=== PATIENT | male | born 1955 | race Caucasian/White ===

== ENCOUNTER 2016-07-10 08:23 | Day surgery (SDC) | payer OTHER ==
[~2016-07-10] VITALS: Ht 182.9 cm; Wt 102.3 kg
[~2016-07-10 08:23] MED LIST: CIPR500T4 PO; CLIN1CAP5 PO
[2016-07-10 08:37] VITALS: BP 155/98; PULSE 65; RESP 20; TEMP 98.1; O2SAT 97
[2016-07-10 09:15] LABS: AUTOMATED NEUTROPHIL # 4.1 TH/MM3 (1.8-7.7); BASOPHIL # 0.1 TH/MM3 (0-0.2); BASOPHIL % 0.8 % (0.0-2.0); EOSINOPHIL # 0.5 TH/MM3 (0-0.4); EOSINOPHIL % 6.1 % (0.0-4.0); HEMO FLAGS DIFF FINAL; LYMPH % 32.3 % (9.0-44.0); LYMPHOCYTE # 2.5 TH/MM3 (1.0-4.8); MEAN CELL VOLUME 94.7 FL (80.0-100.0); MEAN CORPUSCULAR HEMOGLOBIN 32.4 PG (27.0-34.0); MEAN CORPUSCULAR HGB CONC 34.2 % (32.0-36.0); MONO % 7.7 % (0.0-8.0); NEUT % 53.1 % (16.0-70.0); PLATELET COUNT 202 TH/MM3 (150-450); RED BLOOD COUNT 5.39 MIL/MM3 (4.50-5.90); RED CELL DISTRIBUTION WIDTH 14.1 % (11.6-17.2); WHITE BLOOD COUNT 7.7 TH/MM3 (4.0-11.0)
[2016-07-10] MEDS ORDERED: MIDAZOLAM HCL 5 MG/5 ML VIAL ONE (10:16)
[2016-07-10] MEDS ORDERED: fentaNYL CITRATE 250 MCG/5 ML AMP ONE (10:17)
[2016-07-10 10:28] LABS: APTT (PATIENT) 27.8 SEC (24.3-30.1); PROTHROMBIN TIME - PATIENT 11.6 SEC (9.8-11.6)
--- NOTE | 2016-07-10 11:16 | PD.RAD ---
Post Procedure Progress Note Pre Procedure Diagnosis: (1) history of DVT left lower extremity Post Procedure Diagnosis: (1) history of DVT left lower extremity Procedure Date: Jul 10, 2016 Supervising Radiologist: Kai Cook JR Proceduralist/Assist: Maida Joyce, RT(R), Mauri Saez RT(R)() Anesthesia: Conscious Sedation Plan of Activity Patient to Unit: ROPU Patient Condition: Good See PACS Report for procedural detail/treatment Vascular-Venous Procedure Procedure 1 Procedure(s): Foreign Body Retrieval, Retrievable IVC Filter Access Access Site(s): Right Jugular Vein Findings: IVC venogram shows no thrombus in filter. Filter removed without difficulty. Jr. Joey,Kai Corbett MD Jul 10, 2016 11:16
[2016-07-10 11:20] VITALS: BP 153/93; PULSE 64; RESP 18; TEMP 97.3; O2SAT 94
[2016-07-10 11:35] VITALS: BP 153/93; PULSE 64; RESP 18; O2SAT 94
[2016-07-10 11:56] VITALS: BP 153/93; PULSE 64; RESP 18; O2SAT 94
--- NOTE | 2016-07-10 12:03 | RADRPT ---
EXAM DATE/TIME: 07/10/2016 10:29 [facility] COMPARISON: No previous studies available for comparison. INDICATIONS : Patient with a history of DVT. No remaining DVT. IVC filter retrieval requested. MEDICAL HISTORY : HTN DVT Colon Cancer SURGICAL HISTORY : Bowel Resection Vasectomy ENCOUNTER: Subsequent ACUITY: 4 - 6 days PAIN SCORE: 3/10 Bilateral neck FLUORO TIME: 4.5 minutes IMAGE SERIES: 2 ACCESS SITE: Right Internal jugular vein SEDATION TIME: 20 minutes CONTRAST: 1.) 20 cc Omnipaque (iohexol) 350 MEDICATION(S): 1.) 3 mg midazolam (Versed) IV 2.) 150 mcg fentanyl (Sublimaze) IV PROCEDURE : 1. Ultrasound-guided venipuncture. 2. Inferior venacavogram with IVC filter retrieval. 4. Conscious sedation with continuous EKG and oximetry monitoring. The risks, benefits and alternatives to the procedure were explained and verbal and written consent w as obtained. The site was prepped in sterile fashion. Full sterile technique was used, including ca p, mask, sterile gloves and gown and a large sterile sheet. Hand hygiene and 2% chlorhexidine and/or betadine/alcohol prep was utilized per protocol for cutaneous antisepsis. The skin and subcutaneous tissues were infiltrated with local anesthetic solution. With ultrasound and fluoroscopic guidance the right internal jugular vein was punctured and a vascula r sheath was placed. Inferior venacavogram was performed. This shows no thrombus within the IVC. The retrieval sheath was passed down to the IVC filter and the snare utilized to engage the hook. Gentle retraction with advancement of the sheath retrieved the filter into the sheath without difficulty. A followup venogram was performed and revealed no extravasation of contrast.. Conscious sedation was performed with the prescribed dosages and duration as above in the presence of an independent trained radiology nurse to assist in the monitoring of the patient. EKG and oximetry remained stable throughout the procedure. The patient tolerated the procedure well and there were n o complications. The patient was sent to post anesthesia recovery in stable condition. CONCLUSION: Uncomplicated inferior vena cava filter retrieval as above. Kai Cook Jr., MD on July 10, 2016 at 11:54 Board Certified Radiologist. This report was verified electronically.
[2016-07-10 12:05] VITALS: BP_SYST 145; BP_SYST 153; BP_DIAS 93; BP_DIAS 95; PULSE 64; PULSE 68; RESP 18; O2SAT 94
[2016-07-10 12:25] VITALS: BP 151/78; PULSE 77; RESP 16; O2SAT 94
== END 2016-07-10 12:55 | disposition home or self-care (01) ==
LOC: HROP 08:23 → HRIP 08:27 → HROP 12:55
PROVIDERS: ATTEND Radiology Body Imaging
DX: Z45.2 Encounter for adjustment and management of vascular access device (principal); I10 Essential (primary) hypertension; F32.9 Major depressive disorder, single episode, unspecified; F31.9 Bipolar disorder, unspecified; N40.0 Benign prostatic hyperplasia without lower urinary tract symptoms; Z85.038 Personal history of other malignant neoplasm of large intestine; Z86.718 Personal history of other venous thrombosis and embolism; Z90.49 Acquired absence of other specified parts of digestive tract
CPT/HCPCS: 37193; 85025; 85610; 85730; 99152; 99153; C1769; C1773; C1887; J2250; J3010

== ENCOUNTER 2016-12-26 09:32 | Inpatient (IN) | payer OTHER, MEDICARE ==
[2016-12-26] VITALS (7 sets, daily range): BP systolic 123–155; BP diastolic 67–83; PULSE 67–95; RESP 14–18; TEMP 98–99.1; O2SAT 95–99
[~2016-12-26] VITALS: Ht 182.9 cm; Wt 102.1 kg
[2016-12-26] MEDS ORDERED: APIX5TAB PO (10:14)
--- NOTE | 2016-12-26 10:45 | PD ---
HPI Chief Complaint: Psychiatric Symptoms Time Seen by Provider: 10:22 Travel History International Travel<30 days: No Contact w/Intl Traveler<30days: No Traveled to known affect area: No History of Present Illness HPI 61-year-old male was Rojas acted and brought in for evaluation. Patient was found walking in the traffic disoriented this morning. Patient has history of bipolar disorder and was on [place]. Patient states that he has not taken his lithium recently. Patient denies any headache. Patient denies any chest pain or shortness of breath. Patient denies abdominal pain. Patient states that he has history of chronic swelling of the right leg. Patient has history of DVT. Patient was on Coumadin but that was stopped. Patient had IVC filter placement and subsequently removed. Patient was given prescription for Eliquis however I do not know whether patient still taking it or not. Patient also has history of hypertension. Patient has history of colorectal cancer status post colectomy. PFSH Past Medical History Hx Anticoagulant Therapy: Yes (ELIQUIS) Bipolar Disorder: Yes Anxiety: Yes Depression: Yes Cancer: Yes (COLON CANCER 2003 HAD CHEMO FOR 1 YEAR) Cardiovascular Problems: Yes Chemotherapy: Yes (PAST IN 2003 FOR COLON CA) Diabetes: No Diminished Hearing: No Deep Vein Thrombosis: Yes Gastrointestinal Disorders: Yes Hepatitis: No Hiatal Hernia: No Hypertension: Yes Medical other: Yes (BLOOD CLOT RIGHT LEG) Musculoskeletal: No Neurologic: No Psychiatric: Yes Respiratory: No Integumentary: Yes (CELLULITIS LOWER LEGS) Immunizations Current: Yes Thyroid Disease: No Tetanus Vaccination: > 5 Years Influenza Vaccination: No Past Surgical History Abdominal Surgery: Yes (COLON CANCER WITH BOWEL RESECTION AND CHEMO) Eye Surgery: Yes (LEFT EYE PROSTHESIS) Genitourinary Surgery: Yes (VASECTOMY) Neurologic Surgery: No Pacemaker: No Other Surgery: Yes (2003 COLON CANCER) Social History Alcohol Use: No Tobacco Use: No (10 YEAR SMOKER) Substance Use: No Allergies-Medications (Allergen,Severity, Reaction): Coded Allergies: No Known Allergies (Verified , 07/10/16) Reported Meds & Prescriptions Reported Meds & Active Scripts Active Reported Eliquis (Apixaban) 5 Mg Tab 5 Mg PO BID Review of Systems General / Constitutional: No: Fever Eyes: No: Visual changes HENT: No: Headaches Cardiovascular: No: Chest Pain or Discomfort Respiratory: No: Shortness of Breath Gastrointestinal: No: Abdominal Pain Genitourinary: No: Dysuria Musculoskeletal: No: Pain Skin: No Rash Neurologic: No: Weakness Psychiatric: No: Depression Endocrine: No: Polydipsia Hematologic/Lymphatic: No: Easy Bruising Physical Exam Narrative GENERAL: Well-nourished, well-developed patient. SKIN: Focused skin assessment warm/dry. HEAD: Normocephalic. EYES: No scleral icterus. No injection or drainage. NECK: Supple, trachea midline. No JVD or lymphadenopathy. CARDIOVASCULAR: Regular rate and rhythm without murmurs, gallops, or rubs. RESPIRATORY: Breath sounds equal bilaterally. No accessory muscle use. GASTROINTESTINAL: Abdomen soft, non-tender, nondistended. MUSCULOSKELETAL: Patient has increasing redness swelling edema right low leg right ankle right foot. BACK: Nontender without obvious deformity. No CVA tenderness. Neurologic exam: Patient's awake and alert. Patient oriented to person. Patient is delusion. Patient moves all extremities well. No obvious focal neurological deficit. Data Data Last Documented VS Vital Signs Date Time Temp Pulse Resp B/P (MAP) Pulse Ox O2 Delivery O2 Flow Rate FiO2 12/26/16 10:04 99.1 95 18 141/69 (93) 99 Room Air Orders Orders Complete Blood Count With Diff (12/26/16 10:28) Comprehensive Metabolic Panel (12/26/16 10:28) Psych Screen (12/26/16 10:28) Drug Screen, Random Urine (12/26/16 10:28) Prothrombin Time / Inr (Pt) (12/26/16 10:28) Act Partial Throm Time (Ptt) (12/26/16 10:28) Iv Access Insert/Monitor (12/26/16 10:28) Us Leg Venous Doppler (12/26/16 10:28) Labs Laboratory Tests Test 12/26/16 10:30 White Blood Count 8.5 TH/MM3 Red Blood Count 4.75 MIL/MM3 Hemoglobin 15.1 GM/DL Hematocrit 45.1 % Mean Corpuscular Volume 94.9 FL Mean Corpuscular Hemoglobin 31.8 PG Mean Corpuscular Hemoglobin Concent 33.5 % Red Cell Distribution Width 13.2 % Platelet Count 178 TH/MM3 Mean Platelet Volume 9.7 FL Neutrophils (%) (Auto) 64.4 % Lymphocytes (%) (Auto) 24.4 % Monocytes (%) (Auto) 9.8 % Eosinophils (%) (Auto) 0.9 % Basophils (%) (Auto) 0.5 % Neutrophils # (Auto) 5.5 TH/MM3 Lymphocytes # (Auto) 2.1 TH/MM3 Monocytes # (Auto) 0.8 TH/MM3 Eosinophils # (Auto) 0.1 TH/MM3 Basophils # (Auto) 0.0 TH/MM3 CBC Comment DIFF FINAL Differential Comment Prothrombin Time 12.0 SEC Prothromb Time International Ratio 1.1 RATIO Activated Partial Thromboplast Time 26.5 SEC Blood Urea Nitrogen 33 MG/DL Creatinine 0.92 MG/DL Random Glucose 107 MG/DL Total Protein 7.0 GM/DL Albumin 3.6 GM/DL Calcium Level 8.8 MG/DL Alkaline Phosphatase 113 U/L Aspartate Amino Transf (AST/SGOT) 127 U/L Alanine Aminotransferase (ALT/SGPT) 62 U/L Total Bilirubin 0.7 MG/DL Sodium Level 142 MEQ/L Potassium Level 3.7 MEQ/L Chloride Level 111 MEQ/L Carbon Dioxide Level 21.7 MEQ/L Anion Gap 9 MEQ/L Estimat Glomerular Filtration Rate 84 ML/MIN MDM Medical Decision Making Medical Screen Exam Complete: Yes Emergency Medical Condition: Yes Interpretation(s) Last Impressions Lower Extremity Ultrasound 12/26/16 1028 Signed Impressions: Service Date/Time: Monday, December 26, 2016 11:14 - CONCLUSION: Nonocclusive thrombus common femoral vein to the distal superficial femoral vein Alex Sterling MD 1207 PM. Lower extremity ultrasound shows no occlusive thrombus, consistent with previous DVT. CBC within normal limit. BUN 33. PT 12.0. INR 1.1. Differential Diagnosis Differential diagnosis including psychosis, schizophrenia, bipolar disorder, DVT , cellulitis. Narrative Course 61-year-old male was Rojas acted for walking on the street disoriented. History of bipolar disorder. History of DVT. 12:08 PM. Patient is medically cleared for psychiatric evaluation and disposition. Kolby Shipley MD Dec 26, 2016 10:45
[2016-12-26 10:48] LABS: AUTOMATED NEUTROPHIL # 5.5 TH/MM3 (1.8-7.7); BASOPHIL % 0.5 % (0.0-2.0); EOSINOPHIL # 0.1 TH/MM3 (0-0.4); EOSINOPHIL % 0.9 % (0.0-4.0); HEMATOCRIT 45.1 % (39.0-51.0); HEMO FLAGS DIFF FINAL; LYMPH % 24.4 % (9.0-44.0); LYMPHOCYTE # 2.1 TH/MM3 (1.0-4.8); MEAN CELL VOLUME 94.9 FL (80.0-100.0); MEAN CORPUSCULAR HEMOGLOBIN 31.8 PG (27.0-34.0); MEAN CORPUSCULAR HGB CONC 33.5 % (32.0-36.0); MONO % 9.8 % (0.0-8.0); NEUT % 64.4 % (16.0-70.0); PLATELET COUNT 178 TH/MM3 (150-450); RED BLOOD COUNT 4.75 MIL/MM3 (4.50-5.90); RED CELL DISTRIBUTION WIDTH 13.2 % (11.6-17.2); WHITE BLOOD COUNT 8.5 TH/MM3 (4.0-11.0)
[2016-12-26 10:57] LABS: APTT (PATIENT) 26.5 SEC (24.3-30.1); INTERNATIONAL NORMALIZED RATIO 1.1 RATIO
[2016-12-26 11:11] LABS: ALT (GPT) 62 U/L (12-78); ANION GAP 9 MEQ/L (5-15); AST (GOT) 127 U/L (15-37); BICARBONATE 21.7 MEQ/L (21.0-32.0); BLOOD UREA NITROGEN 33 MG/DL (7-18); CHLORIDE 111 MEQ/L (98-107); GLOMERULAR FILTRATION RATE 84 ML/MIN (>89); POTASSIUM 3.7 MEQ/L (3.5-5.1); SODIUM (NA) 142 MEQ/L (136-145)
[2016-12-26 11:13] LABS: ALKALINE PHOSPHATASE 113 U/L (45-117); TOTAL BILIRUBIN ADULT 0.7 MG/DL (0.2-1.0)
--- NOTE | 2016-12-26 11:42 | RADRPT ---
EXAM DATE/TIME: 12/26/2016 11:14 [facility] COMPARISON: No previous studies available for comparison. EXTERNAL COMPARISON : [facility], US LEG, RIGHT VENOUS DOPPLER, April 15, 2015[facility], US LEG, BILA TERAL VENOUS DOPPLER, October 15, 2013. [facility], US LEG, RIGHT VENOUS DOPPLER, March 20, 2011. INDICATIONS : Right leg swelling. MEDICAL HISTORY : Hypertension. Deep venous thrombosis. Carcinoma, colon. Anticoagulant therapy. Bipolar disorder. D epression. Anxiety. Chemotherapy. Lower extremity cellulitus. Enlarged prostate. SURGICAL HISTORY : Colon resection. Left eye prosthesis. IVC filter with removal. Vasectomy. ENCOUNTER: [facility] ACUITY: >1 year PAIN SCORE: 0/10 LOCATION: Right leg. TECHNIQUE: Venous ultrasound of the leg was performed from the inguinal ligament to the proximal calf. Real-no e, color Doppler and spectral tracing, compression and augmentation techniques were used. FINDINGS: There is nonocclusive thrombus in the common femoral vein extending to the superficial femoral vein. This is consistent with previous DVT . No abnormality at the popliteal region and peripherally below the knee. CONCLUSION: Nonocclusive thrombus common femoral vein to the distal superficial femoral vein Alex Sterlnig MD on December 26, 2016 at 11:38 Board Certified Radiologist. This report was verified electronically.
[2016-12-26] MEDS ORDERED: LORazepam 2 MG/ML VIAL IV PUSH ONE (14:30)
[2016-12-26] MEDS ORDERED: ALUMINUM/MAGNESIUM/SIMETH 30 ML CUP PO PRN (21:00)
[2016-12-26] MEDS ORDERED: BENZTROPINE MESYLATE 1 MG TAB PO PRN (21:00)
[2016-12-26] MEDS ORDERED: MAGNESIUM HYDROXIDE SUSP 30 ML CUP PO PRN (21:00)
[2016-12-26] MEDS ORDERED: LORazepam 2 MG/ML VIAL IM PRN (21:00)
[2016-12-26] MEDS ORDERED: BENZTROPINE MESYLATE 2 MG/2 ML VIAL IM PRN (21:00)
[2016-12-26] MEDS: APIXABAN 5 MG TABLET PO SCH (21:09)
[2016-12-27] MEDS ORDERED: LORazepam 2 MG/ML VIAL IM ONE (01:45)
[2016-12-27 06:46] VITALS: BP 102/57; PULSE 72; RESP 16; TEMP 97.8; O2SAT 95
[2016-12-27] MEDS: APIXABAN 5 MG TABLET PO SCH ×2 (09:00→21:01)
[2016-12-27] MEDS: REMOVE OLD PATCH T-DERMAL SCH (09:00)
[2016-12-27] MEDS: NICOTINE 21 MG/24 HR PATCH T-DERMAL SCH (09:41)
[2016-12-27] MEDS: ACETAMINOPHEN 325 MG TAB PO PRN (09:49)
[2016-12-27 10:13] LABS: ALT (GPT) 65 U/L (12-78); ANION GAP 5 MEQ/L (5-15); AST (GOT) 102 U/L (15-37); BICARBONATE 29.3 MEQ/L (21.0-32.0); BLOOD UREA NITROGEN 25 MG/DL (7-18); CHLORIDE 108 MEQ/L (98-107); GLOMERULAR FILTRATION RATE 94 ML/MIN (>89); POTASSIUM 3.8 MEQ/L (3.5-5.1); SODIUM (NA) 142 MEQ/L (136-145)
[2016-12-27 10:23] LABS: ALKALINE PHOSPHATASE 110 U/L (45-117); HDL CHOLESTEROL 35.7 MG/DL (40.0-60.0); LDL CHOLESTEROL 54 MG/DL (0-99); TOTAL BILIRUBIN ADULT 0.7 MG/DL (0.2-1.0)
[2016-12-27 11:06] LABS: HEMOGLOBIN A1a 1.2 %; HEMOGLOBIN A1b 0.9 %; HEMOGLOBIN Ao 85.1 %; HEMOGLOBIN F 0.8 %; HEMOGLOBIN P3 3.5 %
[2016-12-27] MEDS: LITHIUM CARBONATE 300 MG TAB PO SCH ×2 (14:15→21:01)
--- NOTE | 2016-12-27 14:58 | HHI.HP ---
Provisional Diagnosis Admission Date Dec 26, 2016 at 20:52 [place] I. Bipolar disorder current episode mixed severe with psychotic features f 31.64 Certification of Person's Competence To Provide Express and Informed Consent I have personally examined Toribio Felix , a person being served at [facility] on, Dec 27, 2016 14:41. Express and informed consent means consent voluntarily given in writing, by a competent person, after sufficient explanation and disclosure of the subject matter involved to enable the person to make a knowing and willful decision without any element of force, fraud, deceit, duress, or other form of constraint or coercion. This person is 18 years of age or older, is not now known to be incompetent to consent to treatment with a guardian advocate, and does not have a health care surrogate or proxy currently making medical treatment decisions. I have found this person to be one of the following: [] Competent to provide express and informed consent, as defined above, for voluntary admission to this facility and is competent to provide express and informed consent for treatment. He/she has the consistent capacity to make well reasoned, willful, and knowing decisions concerning his or her medical or mental health treatment. The person fully and consistently understands the purpose of the admission for examination/placement and is fully capable of personally exercising all rights assured [place] [] Incompetent to provide express and informed consent to voluntary admission, and this is incompetent to provide express and informed consent to treatment. The person must be transferred to involuntary status and a petition for a guardian advocate filed with the Circuit Court. [xxx] Refusing to provide express and informed consent to voluntary admission but is competent to provide express and informed consent for treatment. The person must be discharged or transferred to involuntary status. Form shall be completed within 24 hours of a person's arrival at the receiving facility and filed in the clinical record of each person: 1. Admitted on a voluntary basis 2. Permitted to provide express and informed consent to his/her own treatment 3. Allowed to transfer from involuntary to voluntary status 4. Prior to permitting a person to consent to his or her own treatment after having been previously found incompetent to consent to treatment. History of Present Illness Capacity: Lacks Capacity (patient lacks capacity to sign for admission. Patient has capacity sign for medication) HPI Patient is a 61-year-old white male comes her under Rojas act by the [place] [employer] dated 12/26/16 at 081 3 AM that document review stating "Toribio was located walking in traffic with what appeared to be a severe leg infection. Toribio obviously suffers from a mental illness and has not been taking his medication. Toribio suffers from a mental illness and was unable to determine whether and evaluation was needed" patient is seen screened in the ED urine toxicology negative lithium level less than 0.1. Patient has had multiple visits to our facility over the past 10 years related to his bipolar disorder and other medical issues. He has been seen by me in the past also. Most recently was discharged on lithium 300 mg 3 times a day and Haldol 5 mg twice a day patient seen today in his room with floor staff. Patient is somewhat tangential circumstantial and disorganized though he did recognize me. He is vague about psychiatric follow-up stating he has psychiatrist in 3 various towns locally. Says he was told to stop his lithium because he has circulation problems in his right lower leg. He does denies suicidality homicidality voices or visions. However at time she appears to be responding to internal stimuli he denies alcohol or drug use related to this. There is a vague grandiosity with this and manipulation also noted with this. However at this time I feel patient does meet criteria for involuntary psychiatric hospitalization. I'll do first opinion request second opinion. I feel he does have capacity sign for medication. We will restart the lithium initially at 300 mg twice a day check a blood level on 12/30. We have hospitalist also consult willingness concerning his medical conditions and peripheral circulation issue. Hopefully severe fairly short stay. He can return to his home he states he lives alone with his pet dog Review of Systems Constitutional: DENIES: Diaphoretic episodes, Fatigue, Fever, Weight gain, Weight loss, Chills, Dizziness, Change in appetite, Night Sweats Endocrine: DENIES: Heat/cold intolerance, Polydipsia, Polyuria, Polyphagia Eyes: DENIES: Blurred vision, Diplopia, Eye inflammation, Eye pain, Vision loss , Photosensitivity, Double Vision Ears, nose, mouth, throat: DENIES: Tinnitus, Hearing loss, Vertigo, Nasal discharge, Oral lesions, Throat pain, Hoarseness, Ear Pain, Running Nose, Epistaxis, Sinus Pain, Toothache, Odynophagia Respiratory: DENIES: Apneas, Cough, Snoring, Wheezing, Hemoptysis, Sputum production, Shortness of breath Cardiovascular: COMPLAINS OF: Lower Extremity Edema Gastrointestinal: DENIES: Abdominal pain, Black stools, Bloody stools, Constipation, Diarrhea, Nausea, Vomiting, Difficulty Swallowing, Anorexia Genitourinary: DENIES: Sexual dysfunction, Urinary frequency, Urinary incontinence, Urgency, Hematuria, Dysuria, Nocturia, Penile Discharge, Testicular Pain, Testicular Swelling Musculoskeletal: DENIES: Joint pain, Muscle aches, Stiffness, Joint Swelling, Back pain, Neck pain Integumentary: DENIES: Abnormal pigmentation, Nail changes, Pruritus, Rash Hematologic/lymphatic: DENIES: Bruising, Lymphadenopathy Immunologic/allergic: DENIES: Eczema, Urticaria Neurologic: COMPLAINS OF: Abnormal gait (limping due to leg problems) Psychiatric: COMPLAINS OF: Confusion, Mood changes Past Psych History Psychological trauma history Patient denies Violence risk - others (6 mos) Low Violence risk - self (6 mos) Low Substance Abuse History Drugs/Alcohol past 12 months Denies Past Family Social History Coded Allergies: No Known Allergies (Verified , 07/10/16) Reported Medications Apixaban (Eliquis) 5 Mg Tab, 5 MG PO BID for Blood Clot Prevention, #60 TAB 0 Refills 12/26/16 Current Medications Medications (Trade) Dose Ordered Sig/Cb Route Start Time Stop Time Status Last Admin (Eliquis) 5 mg BID PO 12/26/16 21:00 12/26/16 21:09 (Ativan) 1 mg Q6H PRN PO 12/26/16 21:00 Future Hold (Ativan Inj) 1 mg Q6H PRN IM 12/26/16 21:00 Future Hold (Benadryl) 50 mg HS PRN PO 12/26/16 21:00 Future Hold (Tylenol) 650 mg Q4H PRN PO 12/26/16 21:00 12/27/16 09:49 (Milk Of Magnesia Liq) 30 ml DAILY PRN PO 12/26/16 21:00 (Mag-Al Plus Susp Liq) 30 ml Q6H PRN PO 12/26/16 21:00 (Habitrol 21 Mg Patch.24 Hr) 1 patch DAILY T-DERMAL 12/27/16 09:00 12/27/16 09:41 (Cogentin) 1 mg Q12H PRN PO 12/26/16 21:00 (Cogentin Inj) 1 mg Q12H PRN IM 12/26/16 21:00 Miscellaneous Information 1 DAILY T-DERMAL 12/27/16 09:00 Family History Patient vague about mental health history and family of origin Social History Patient lives by himself with his pet dog Patient's Strengths (min. 2) Patient verbal able [facility] health care Physical Exam Patient seen screened in ED exam reviewed and agreed with this time patient sitting quietly in his room is in no acute distress. Neck is supple. He is in no respiratory distress. No complaints of abdominal pain patient moves all 4 extremities without difficulty with is marked discoloration and swelling in his right lower leg. We will have hospitalists assess that Vital Signs Vital Signs Date Time Temp Pulse Resp B/P (MAP) Pulse Ox O2 Delivery O2 Flow Rate FiO2 12/27/16 06:46 97.8 72 16 102/57 (72) 95 12/26/16 22:05 Nasal Cannula 2.00 Lab Results Test 12/26/16 14:49 12/27/16 08:04 Urine Opiates Screen NEG Urine Barbiturates Screen NEG Urine Amphetamines Screen NEG Urine Benzodiazepines Screen NEG Urine Cocaine Screen NEG Urine Cannabinoids Screen NEG Blood Urea Nitrogen 25 MG/DL Creatinine 0.84 MG/DL Random Glucose 120 MG/DL Total Protein 6.9 GM/DL Albumin 3.4 GM/DL Calcium Level 8.5 MG/DL Alkaline Phosphatase 110 U/L Aspartate Amino Transf (AST/SGOT) 102 U/L Alanine Aminotransferase (ALT/SGPT) 65 U/L Total Bilirubin 0.7 MG/DL Sodium Level 142 MEQ/L Potassium Level 3.8 MEQ/L Chloride Level 108 MEQ/L Carbon Dioxide Level 29.3 MEQ/L Anion Gap 5 MEQ/L Estimat Glomerular Filtration Rate 94 ML/MIN Hemoglobin A1c 5.8 % Triglycerides Level 91 MG/DL Cholesterol Level 108 MG/DL LDL Cholesterol 54 MG/DL HDL Cholesterol 35.7 MG/DL Cholesterol/HDL Ratio 3.02 RATIO Thyroid Stimulating Hormone 3rd Gen 2.420 uIU/ML [place] Level LESS THAN 0.1 MEQ/L Mental Status Examination Alert fairly well oriented stockily built white male appears somewhat older than stated age he is guarded manipulative somewhat entitled vigilant and paranoid Appearance Somewhat disheveled Speech: Rapid, Other (disorganized) Orientation: x3 Memory: Unremarkable (clear) Thought Process: Loose Association Thought Content: Paranoid (mild), Other (grandiose) Language Poor Fund of Knowledge Poor Hallucination Type: None (at times appears to be responding to internal stimuli ) Attention and Concentration: Other (fair) Suicidal Ideation: No (denies) Previous Suicide Attempts: No Homicidal Ideation: No (denies) Previous Homicide Attempts: No Insight: Poor Judgment: Poor Affect: Other (slight decrease range of motion intensity) Mood: Euthymic, Irritable (mildly) Motor Activity: Normal gait, Abnormal gait-specify (secondary to peripheral vascular issues with his right lower leg) Assessment & Plan Problem List: (1) Bipolar disorder, current episode mixed, severe, with psychotic features ICD Codes: F31.64 - Bipolar disorder, current episode mixed, severe, with psychotic features Assessment & Plan Estimated LOS: 5-7 days at this time patient meets criteria for involuntary psychiatric hospitalization under the Rojas act I will do first opinion request second opinion who I feel patient has capacity [facility] medication. Both hospitalist consult will us related to his medical issues. We will restart him on his lithium at 300 mg twice a day cheeking of lithium level on 12/30 Discharge Planning To be determined Request HC Surrog/Guard Advoc?: No Toribio Dejesus MD Dec 27, 2016 14:58
--- NOTE | 2016-12-27 15:59 | PD.CONS ---
HPI Service [facility] Hospitalists Consult Requested By Dr. Dejesus Reason for Consult Medical management Primary Care Physician No Primary Care Physician Diagnoses: (1) Peripheral vascular disease (2) history of DVT left lower extremity History of Present Illness The patient is 61-year-old male who was brought to the ER under Rojas act. He was admitted to inpatient psychiatry. Hospitalist consult has been requested for medical management. Patient has history of DVTs of the right lower leg. He reports peripheral vascular disease and states that he is scheduled to have bypass of the right lower extremity at some point in the future. Patient is quite tangential and does not provide a coherent history. Further information is gathered from the electronic medical record. Review of Systems ROS Limitations: Clinical Condition, Poor Historian Constitutional: DENIES: Fever, Chills, Night Sweats Eyes: DENIES: Blurred vision, Vision loss Ears, nose, mouth, throat: DENIES: Hearing loss Respiratory: DENIES: Cough, Wheezing, Sputum production, Shortness of breath Cardiovascular: DENIES: Chest pain, Palpitations, Dyspnea on Exertion, Lower Extremity Edema Gastrointestinal: DENIES: Abdominal pain, Constipation, Diarrhea, Nausea, Vomiting Genitourinary: DENIES: Urinary frequency, Urinary incontinence, Urgency, Hematuria, Dysuria, Nocturia Musculoskeletal: DENIES: Joint pain, Muscle aches Integumentary: DENIES: Pruritus, Rash Hematologic/lymphatic: DENIES: Bruising Neurologic: DENIES: Headache Past Family Social History Allergies: Coded Allergies: No Known Allergies (Verified , 07/10/16) Past Medical History History of colon cancer 2004 History of DVT Hypertension Past Surgical History Bowel resection for colon cancer Left eye prosthesis Vasectomy IVC filter placement Reported Medications Eliquis 5 mg twice a day Family History Father had a stroke. Social History Quit smoking on Sunday. Denies alcohol or illicit drug use. Physical Exam Vital Signs Vital Signs Date Time Temp Pulse Resp B/P (MAP) Pulse Ox O2 Delivery O2 Flow Rate FiO2 12/27/16 06:46 97.8 72 16 102/57 (72) 95 12/26/16 22:22 98.0 86 18 123/83 (96) 97 12/26/16 22:05 98.3 67 14 126/76 (93) 95 Nasal Cannula 2.00 12/26/16 19:54 70 18 131/80 (97) 95 Room Air 12/26/16 18:35 67 18 138/73 (94) 96 Nasal Cannula 2.00 Physical Exam GENERAL: Well-nourished, well-developed male in no acute distress. Appears older than stated age. HEENT: Normocephalic, atraumatic. Pupils equal, round and reactive. Extraocular movements intact. No scleral icterus. No injection or drainage. Oropharynx is clear. Mucous membranes are moist. CARDIOVASCULAR: Regular rate and rhythm without murmurs, gallops, or rubs. RESPIRATORY: Clear to auscultation. No wheezes, rales, or rhonchi. Breathing is non-labored. GASTROINTESTINAL: Abdomen soft, non-tender, nondistended. EXTREMITIES: No left lower extremity edema. No calf tenderness. Right lower leg with swelling and venous stasis changes. PSYCH: Alert and oriented x 3. Laboratory Laboratory Tests Test 12/27/16 08:04 Blood Urea Nitrogen 25 Creatinine 0.84 Random Glucose 120 Total Protein 6.9 Albumin 3.4 Calcium Level 8.5 Alkaline Phosphatase 110 Aspartate Amino Transf (AST/SGOT) 102 Alanine Aminotransferase (ALT/SGPT) 65 Total Bilirubin 0.7 Sodium Level 142 Potassium Level 3.8 Chloride Level 108 Carbon Dioxide Level 29.3 Anion Gap 5 Estimat Glomerular Filtration Rate 94 Hemoglobin A1c 5.8 Triglycerides Level 91 Cholesterol Level 108 LDL Cholesterol 54 HDL Cholesterol 35.7 Cholesterol/HDL Ratio 3.02 Thyroid Stimulating Hormone 3rd Gen 2.420 [place] Level LESS THAN 0.1 Result Diagram: 12/26/16 1030 12/27/16 0804 Imaging Last Impressions Lower Extremity Ultrasound 12/26/16 1028 Signed Impressions: Service Date/Time: Monday, December 26, 2016 11:14 - CONCLUSION: Nonocclusive thrombus common femoral vein to the distal superficial femoral vein Alex Sterling MD Assessment and Plan Assessment and Plan 1. Bipolar disorder: Management per psychiatry. 2. Right lower extremity DVT: Continue Eliquis. Ultrasound shows nonobstructive thrombus in the right common femoral vein extending to the superficial femoral vein, consistent with previous DVT. 3. Hypertension: Blood pressure controlled. Reportedly not on medications. 4. Peripheral vascular disease: Patient states that he is scheduled to have right lower extremity bypass surgery in [place]. Monitor symptoms. Fritz Sears MD Dec 27, 2016 15:59
[2016-12-27 18:26] VITALS: BP 116/81; PULSE 100; RESP 18; TEMP 97.6; O2SAT 95
[2016-12-27] MEDS: LORazepam 1 MG TAB PO PRN (21:01)
[2016-12-27] MEDS: diphenhydrAMINE HCL 50 MG CAP PO PRN (21:01)
[2016-12-28 05:29] VITALS: BP 119/76; PULSE 68; RESP 17; TEMP 97.9; O2SAT 96
[2016-12-28] MEDS: REMOVE OLD PATCH T-DERMAL SCH (09:00)
[2016-12-28] MEDS: NICOTINE 21 MG/24 HR PATCH T-DERMAL SCH (09:00)
[2016-12-28] MEDS: APIXABAN 5 MG TABLET PO SCH ×2 (09:00→09:50)
[2016-12-28] MEDS: LITHIUM CARBONATE 300 MG TAB PO SCH ×2 (09:00→09:50)
--- NOTE | 2016-12-28 13:36 | PD.PSY.CON ---
Provisional Diagnosis Admission Date Dec 26, 2016 at 20:52 [place]. Bipolar disorder current episode mixed severe with psychotic features f 31.64 History of Present Illness Service Psychiatry Consult Requested By Dr. Dejesus Reason for Consult Second opinion Primary Care Physician No Primary Care Physician HPI Patient is a 61-year-old white male comes her under Rojas act by the [place] [employer] dated 12/26/16 at 081 3 AM that document review stating "Toribio was located walking in traffic with what appeared to be a severe leg infection. Toribio obviously suffers from a mental illness and has not been taking his medication. Toribio suffers from a mental illness and was unable to determine whether and evaluation was needed" patient is seen screened in the ED urine toxicology negative lithium level less than 0.1. Patient has had multiple visits to our facility over the past 10 years related to his bipolar disorder and other medical issues. He has been seen by me in the past also. Most recently was discharged on lithium 300 mg 3 times a day and Haldol 5 mg twice a day patient seen today in his room with floor staff. Patient is somewhat tangential circumstantial and disorganized though he did recognize me. He is vague about psychiatric follow-up stating he has psychiatrist in 3 various towns locally. Says he was told to stop his lithium because he has circulation problems in his right lower leg. He does denies suicidality homicidality voices or visions. However at time she appears to be responding to internal stimuli he denies alcohol or drug use related to this. There is a vague grandiosity with this and manipulation also noted with this. However at this time I feel patient does meet criteria for involuntary psychiatric hospitalization. I'll do first opinion request second opinion. I feel he does have capacity sign for medication. We will restart the lithium initially at 300 mg twice a day check a blood level on 12/30. We have hospitalist also consult willingness concerning his medical conditions and peripheral circulation issue. Hopefully severe fairly short stay. He can return to his home he states he lives alone with his pet dog 12/28/16 - Patient was seen for second opinion, found lying on hospital bed calm and cooperative with interview. Patient states that he has been feeling happy but noted to be disorganized with flight of ideas and delusions of conspiracy and paranoia. Patients states that a person from the [facility] was taking information for a lightlhouse and taking it to the [employer] can. Patient continued on describing this conspiracy to board writer. Patient denied any perceptual disturbances. Review of Systems Except as stated in HPI: all other systems reviewed are Neg Past Family Social History Coded Allergies: No Known Allergies (Verified , 07/10/16) Reported Medications Apixaban (Eliquis) 5 Mg Tab, 5 MG PO BID for Blood Clot Prevention, #60 TAB 0 Refills 12/26/16 Current Medications Medications (Trade) Dose Ordered Sig/Cb Route Start Time Stop Time Status Last Admin (Eliquis) 5 mg BID PO 12/26/16 21:00 12/27/16 21:01 (Ativan) 1 mg Q6H PRN PO 12/26/16 21:00 Future hold 12/27/16 21:01 (Ativan Inj) 1 mg Q6H PRN IM 12/26/16 21:00 Future hold 12/28/16 03:10 (Benadryl) 50 mg HS PRN PO 12/26/16 21:00 Future hold 12/27/16 21:01 (Tylenol) 650 mg Q4H PRN PO 12/26/16 21:00 12/27/16 09:49 (Milk Of Magnesia Liq) 30 ml DAILY PRN PO 12/26/16 21:00 (Mag-Al Plus Susp Liq) 30 ml Q6H PRN PO 12/26/16 21:00 (Habitrol 21 Mg Patch.24 Hr) 1 patch DAILY T-DERMAL 12/27/16 09:00 12/27/16 09:41 (Cogentin) 1 mg Q12H PRN PO 12/26/16 21:00 (Cogentin Inj) 1 mg Q12H PRN IM 12/26/16 21:00 Miscellaneous Information 1 DAILY T-DERMAL 12/27/16 09:00 (Lithotabs) 300 mg BID PO 12/27/16 14:15 12/27/16 21:01 Patient's Strengths (min. 2) Patient verbal able axis health care Physical Exam Vital Signs Vital Signs Date Time Temp Pulse Resp B/P (MAP) Pulse Ox O2 Delivery O2 Flow Rate FiO2 12/28/16 05:29 97.9 68 17 119/76 (90) 96 12/26/16 22:05 Nasal Cannula 2.00 Mental Status Examination Appearance Appears states age, sitting on chair, calm and cooperative with interview. Speech: Rapid, Other (disorganized) Orientation: x3 Memory: Unremarkable (clear) Thought Process: Flight of Ideas, Loose Association, Other (disorganized) Thought Content: Paranoid (mild), Other (grandiose) Hallucination Type: None (at times appears to be responding to internal stimuli ) Attention and Concentration: Other (fair) Suicidal Ideation: No (denies) Previous Suicide Attempts: No Homicidal Ideation: No (denies) Previous Homicide Attempts: No Insight: Poor Judgment: Poor Affect: Other (constricted) Affect if Inappropriate: Blunt Mood: Euthymic, Irritable (mildly) Motor Activity: Normal gait, Abnormal gait-specify (secondary to peripheral vascular issues with his right lower leg) Assessment & Plan Problem List: (1) Bipolar disorder, current episode mixed, severe, with psychotic features ICD Codes: F31.64 - Bipolar disorder, current episode mixed, severe, with psychotic features Assessment & Plan As requested for second opinion, after reviewing documentation and after my independent evaluation I completely agree with Dr. Dejesus's assessment and plan. Request HC Surrog/Guard Advoc?: Joselito Grace MD Dec 28, 2016 13:36
--- NOTE | 2016-12-28 14:14 | HHI.PYPN ---
Subjective Remarks Patient seen in day room with nurse Hillary, chart review, patient compliant with his lithium. Patient continues bizarre delusional and grandiose. Showing somewhat aggressive behaviors on 2600 that led to his transfer to 0. He now states he wants to sell his home by a motor home and dry without to visit his daughter in [place]. I did review the EMR patient has had some benefit from scheduled Haldol will order Haldol 5 mg twice a day Review of Systems Except as stated in HPI: all other systems reviewed are Neg Objective Alert: Yes [place]: Person, Place Mood: Agitated (mildly), Anxious Affect: Labile Memory Intact: Comment (poor) Hallucinations: Other (denies) Delusions: Yes Delusion Type: Grandiose, Paranoid Suicidal: Ideation (denies) Homicidal: Ideation (denies) Insight/Judgment Very poor Vitals/IOs Vital Signs Date Time Temp Pulse Resp B/P (MAP) Pulse Ox O2 Delivery O2 Flow Rate FiO2 12/28/16 05:29 97.9 68 17 119/76 (90) 96 12/26/16 22:05 Nasal Cannula 2.00 Assessment & Plan Problem List: (1) Bipolar disorder, current episode mixed, severe, with psychotic features ICD Codes: F31.64 - Bipolar disorder, current episode mixed, severe, with psychotic features Assessment & Plan Estimated LOS: days patient continue psychotic delusional paranoid. She medication adjustment above Justification for Cont. Inpt. At this time patient decompensate if placed in a lower level of care Discharge Planning To be determined Request HC Surrog/Guard Advoc?: No Toribio Dejesus MD Dec 28, 2016 14:14
[2016-12-28] MEDS: HALOPERIDOL 5 MG TAB PO SCH ×2 (15:00→20:11)
--- NOTE | 2016-12-28 15:18 | HHI.PR ---
Subjective Remarks Follow up PVD, DVT. Patient states that his right leg is a little painful, but no worse than normal. He states "my lower leg is being treated at [facility]; you don't have anything to do with that". He has been transferred to [facility] unit for aggressive behavior. Objective Vitals Vital Signs Date Time Temp Pulse Resp B/P (MAP) Pulse Ox O2 Delivery O2 Flow Rate FiO2 12/28/16 05:29 97.9 68 17 119/76 (90) 96 12/27/16 18:26 97.6 100 18 116/81 (93) 95 I/O 12/27/16 12/27/16 12/27/16 12/28/16 12/28/16 12/28/16 07:00 15:00 23:00 07:00 15:00 23:00 Intake Total 480 ml Balance 480 ml Intake Oral 480 ml Result Diagram: 12/26/16 1030 12/27/16 0804 Imaging Last Impressions Lower Extremity Ultrasound 12/26/16 1028 Signed Impressions: Service Date/Time: Monday, December 26, 2016 11:14 - CONCLUSION: Nonocclusive thrombus common femoral vein to the distal superficial femoral vein Alex Sterling MD Objective Remarks General: Elderly male in no acute distress. Ambulating in the cooper. Heart: Regular rate and rhythm. No murmur. Lungs: Clear to auscultation bilaterally. No wheezes, rales, or rhonchi. Breathing is nonlabored. Abdomen: Soft, nontender, nondistended. Extremities: Right lower extremity with edema. Psych: Alert and oriented. Procedures None Urinary Catheter: No Vascular Central Line Catheter: No A/P Problem List: (1) Peripheral vascular disease ICD Code: I73.9 - Peripheral vascular disease, unspecified (2) history of DVT left lower extremity Status: Chronic Assessment and Plan 1. Bipolar disorder: Management per psychiatry. 2. Right lower extremity DVT: Continue Eliquis. Ultrasound shows nonobstructive thrombus in the right common femoral vein extending to the superficial femoral vein, consistent with previous DVT. 3. Hypertension: Blood pressure controlled. Reportedly not on medications. 4. Peripheral vascular disease: Patient states that he is scheduled to have right lower extremity bypass surgery in [place] and he does not want us to do anything about it here. Monitor symptoms. [facility]HH will sign off. Reconsult if necessary. Fritz Sears MD Dec 28, 2016 15:18
[2016-12-28 16:31] VITALS: BP 154/80; PULSE 71; RESP 17; TEMP 98; O2SAT 95
[2016-12-28] MEDS: diphenhydrAMINE HCL 50 MG CAP PO PRN (20:11)
[2016-12-28] MEDS: LORazepam 1 MG TAB PO PRN (20:11)
[2016-12-29 06:03] VITALS: BP 137/80; PULSE 61; RESP 18; TEMP 97.5; O2SAT 97
[2016-12-29] MEDS: HALOPERIDOL 5 MG TAB PO SCH ×2 (07:52→21:00)
[2016-12-29] MEDS: LITHIUM CARBONATE 300 MG TAB PO SCH ×2 (07:52→21:00)
[2016-12-29] MEDS: REMOVE OLD PATCH T-DERMAL SCH (07:52)
[2016-12-29] MEDS: APIXABAN 5 MG TABLET PO SCH ×2 (07:52→21:00)
[2016-12-29] MEDS: NICOTINE 21 MG/24 HR PATCH T-DERMAL SCH (07:52)
[2016-12-29] MEDS: ACETAMINOPHEN 325 MG TAB PO PRN ×3 (08:24→21:56)
--- NOTE | 2016-12-29 08:30 | HHI.PYPN ---
Subjective Remarks Patient seen in [place] with floor staff. Chart reviewed. Patient compliant medication. Patient continues somewhat intrusive demanding mildly grandiose. However the intensity has softened the intrusiveness has softened. He does denies suicidality homicidality voices or visions. Patient has show compliance with the Haldol. If he continues to show improvement through the weekend consider discharge first part of next week Review of Systems Except as stated in HPI: all other systems reviewed are Neg Objective Alert: Yes [place]: Person, Place Mood: Anxious (decreasing) Affect: Labile (decreasing) Memory Intact: Comment (poor) Hallucinations: Other (denies) Delusions: Yes Delusion Type: Grandiose (decreasing), Paranoid Suicidal: Ideation (denies) Homicidal: Ideation (denies) Insight/Judgment Poor Vitals/IOs Vital Signs Date Time Temp Pulse Resp B/P (MAP) Pulse Ox O2 Delivery O2 Flow Rate FiO2 12/29/16 06:03 97.5 61 18 137/80 (99) 97 12/26/16 22:05 Nasal Cannula 2.00 Assessment & Plan Problem List: (1) Bipolar disorder, current episode mixed, severe, with psychotic features ICD Codes: F31.64 - Bipolar disorder, current episode mixed, severe, with psychotic features Assessment & Plan Estimated LOS: days patient continues manic mildly psychotic, though it is improving. Is compliant medications. For now continue treatment Justification for Cont. Inpt. At this time patient will decompensate if placed in a lower level of care Discharge Planning To be determined Request HC Surrog/Guard Advoc?: No Toribio Dejesus MD Dec 29, 2016 08:30
[2016-12-29 15:31] VITALS: BP 146/72; PULSE 78; RESP 18; TEMP 97.7; O2SAT 96
[2016-12-30 06:06] VITALS: BP 149/88; PULSE 74; RESP 18; TEMP 97.6
[2016-12-30] MEDS: HALOPERIDOL 5 MG TAB PO SCH ×2 (08:08→20:19)
[2016-12-30] MEDS: NICOTINE 21 MG/24 HR PATCH T-DERMAL SCH (08:08)
[2016-12-30] MEDS: REMOVE OLD PATCH T-DERMAL SCH (08:08)
[2016-12-30] MEDS: APIXABAN 5 MG TABLET PO SCH ×2 (08:08→20:19)
[2016-12-30] MEDS: LITHIUM CARBONATE 300 MG TAB PO SCH ×2 (08:08→20:19)
[2016-12-30] MEDS: ACETAMINOPHEN 325 MG TAB PO PRN ×2 (09:05→20:22)
--- NOTE | 2016-12-30 18:16 | HHI.PYPN ---
Subjective Remarks Patient was seen and case discussed with nursing. Patient is pleasant and cooperative with exam. Compliant with medications. Behaving well on the unit. No evidence of manic symptoms. Objective Alert: Yes [place]: Person, Place Mood: Anxious (decreasing) Affect: Restricted Memory Intact: Comment (poor) Hallucinations: Other (denies) Delusions: Yes Delusion Type: Other (not elicited) Suicidal: Ideation (denies) Homicidal: Ideation (denies) Insight/Judgment Fair Vitals/IOs Vital Signs Date Time Temp Pulse Resp B/P (MAP) Pulse Ox O2 Delivery O2 Flow Rate FiO2 12/30/16 11:01 18 12/30/16 06:06 97.6 74 149/88 (108) 12/29/16 15:31 96 12/26/16 22:05 Nasal Cannula 2.00 Assessment & Plan Problem List: (1) Bipolar disorder, current episode mixed, severe, with psychotic features ICD Codes: F31.64 - Bipolar disorder, current episode mixed, severe, with psychotic features Assessment & Plan Continue current treatment Justification for Cont. Inpt. Patient would decompensate in a less restrictive setting Request HC Surrog/Guard Advoc?: No Breezy Mayers DO Dec 30, 2016 18:16
[2016-12-30 18:37] VITALS: BP 144/88; PULSE 67; RESP 18; TEMP 98.1; O2SAT 96
[2016-12-30] MEDS: diphenhydrAMINE HCL 50 MG CAP PO PRN (20:19)
[2016-12-31 05:45] VITALS: BP 154/87; PULSE 60; RESP 18; TEMP 97.6; O2SAT 97
[2016-12-31] MEDS: ACETAMINOPHEN 325 MG TAB PO PRN ×2 (06:29→20:22)
[2016-12-31] MEDS: HALOPERIDOL 5 MG TAB PO SCH ×2 (08:24→20:21)
[2016-12-31] MEDS: APIXABAN 5 MG TABLET PO SCH ×2 (08:24→20:21)
[2016-12-31] MEDS: LITHIUM CARBONATE 300 MG TAB PO SCH ×2 (08:24→20:21)
[2016-12-31] MEDS: NICOTINE 21 MG/24 HR PATCH T-DERMAL SCH (08:24)
[2016-12-31] MEDS: REMOVE OLD PATCH T-DERMAL SCH (08:25)
--- NOTE | 2016-12-31 15:37 | HHI.PYPN ---
Subjective Remarks Patient was seen and case discussed with nursing. Patient is pleasant and cooperative with exam. Mood remains stable. He is logical coherent and organized. Behaving well on the unit. Looking forward to going home next week. Compliant with his medications and tolerating them well. Objective Alert: Yes [place]: Person, Place, Date, Situation Mood: Anxious Affect: Appropriate Memory Intact: Comment (fair) Hallucinations: Other (denies) Delusions: No Delusion Type: Other (not elicited) Suicidal: Ideation (denies) Homicidal: Ideation (denies) Insight/Judgment Improving Labs Test 12/30/16 19:38 [place] Level 0.2 MEQ/L Vitals/IOs Vital Signs Date Time Temp Pulse Resp B/P (MAP) Pulse Ox O2 Delivery O2 Flow Rate FiO2 12/31/16 05:45 97.6 60 18 154/87 (109) 97 Assessment & Plan Problem List: (1) Bipolar disorder, current episode mixed, severe, with psychotic features ICD Codes: F31.64 - Bipolar disorder, current episode mixed, severe, with psychotic features Assessment & Plan Continue current treatment plan Justification for Cont. Inpt. Patient would decompensate in a less restrictive setting Request HC Surrog/Guard Advoc?: No Breezy Mayers DO Dec 31, 2016 15:37
[2016-12-31 18:00] VITALS: BP 165/91; PULSE 77; RESP 17; TEMP 98.6
[2016-12-31] MEDS: diphenhydrAMINE HCL 50 MG CAP PO PRN (20:21)
[2017-01-01] MEDS: ACETAMINOPHEN 325 MG TAB PO PRN ×4 (02:43→20:26)
[2017-01-01 05:44] VITALS: BP 132/84; PULSE 74; RESP 18; TEMP 97.3; O2SAT 96
[2017-01-01] MEDS: HALOPERIDOL 5 MG TAB PO SCH ×2 (09:00→21:25)
[2017-01-01] MEDS: APIXABAN 5 MG TABLET PO SCH ×2 (09:00→21:25)
[2017-01-01] MEDS: NICOTINE 21 MG/24 HR PATCH T-DERMAL SCH (09:00)
[2017-01-01] MEDS: REMOVE OLD PATCH T-DERMAL SCH (09:00)
--- NOTE | 2017-01-01 10:23 | HHI.PYPN ---
Subjective Remarks Patient seen in dayroom nurse Chayo and counselor Ernestine. Chart reviewed. Patient compliant medication. [place] level drawn on 12/30 is 0.2 on 300 mg twice a day. Will increase to 300 mg a.m. 600 mg at bedtime repeat blood level on 01/04 patient somewhat calmer today is aware of the peripheral circulation problems. Says he has appointment scheduled at [facility] in [place]. Need to verify that. He does denies suicidality and voices. For now continue treatment Review of Systems Except as stated in HPI: all other systems reviewed are Neg Objective Alert: Yes [place]: Person, Place, Date, Situation Mood: Anxious Affect: Appropriate Memory Intact: Comment (fair) Hallucinations: Other (denies) Delusions: No Delusion Type: Other (not elicited) Suicidal: Ideation (denies) Homicidal: Ideation (denies) Insight/Judgment Poor Vitals/IOs Vital Signs Date Time Temp Pulse Resp B/P (MAP) Pulse Ox O2 Delivery O2 Flow Rate FiO2 01/01/17 05:44 97.3 74 18 132/84 (100) 96 Assessment & Plan Problem List: (1) Bipolar disorder, current episode mixed, severe, with psychotic features ICD Codes: F31.64 - Bipolar disorder, current episode mixed, severe, with psychotic features Assessment & Plan Patient continues somewhat manic and intense though softer. [place] level is somewhat low will adjust dosages and check level. Estimated LOS: days Justification for Cont. Inpt. At this time patient will decompensate the place a lower level of care, also needs further medication adjustment Discharge Planning To be determined Request HC Surrog/Guard Advoc?: No Toribio Dejesus MD Jan 01, 2017 10:23
[2017-01-01 17:48] VITALS: BP 152/81; PULSE 75; RESP 18; TEMP 98; O2SAT 99
[2017-01-01] MEDS ORDERED: LITHIUM CARBONATE 300 MG TAB PO SCH (21:00)
[2017-01-02] MEDS: ACETAMINOPHEN 325 MG TAB PO PRN ×2 (03:53→14:03)
[2017-01-02 06:17] VITALS: BP 147/84; PULSE 80; RESP 18; TEMP 97.5; O2SAT 97
[2017-01-02] MEDS: HALOPERIDOL 5 MG TAB PO SCH (08:16)
[2017-01-02] MEDS: APIXABAN 5 MG TABLET PO SCH (08:17)
[2017-01-02] MEDS: NICOTINE 21 MG/24 HR PATCH T-DERMAL SCH (08:17)
[2017-01-02] MEDS: REMOVE OLD PATCH T-DERMAL SCH (08:17)
[2017-01-02] MEDS ORDERED: LITHIUM CARBONATE 300 MG TAB PO SCH (09:00)
[2017-01-02] MEDS ORDERED: HALO5TAB PO (12:40)
[2017-01-02] MEDS ORDERED: LITH300T3 PO (12:40)
[2017-01-02] MEDS ORDERED: APIX5TAB PO (12:40)
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
== END 2017-01-02 14:30 | disposition home or self-care (01) | DRG 885 ==
LOC: NEPE 09:32 → NEDA 20:52 → H260 22:22 → H270 12-28 08:30
PROVIDERS: ADMIT Psychiatry & Neurology Psychiatry; ATTEND Psychiatry & Neurology Psychiatry
DX: F31.64 Bipolar disorder, current episode mixed, severe, with psychotic features (principal); I10 Essential (primary) hypertension; F41.9 Anxiety disorder, unspecified; Z86.718 Personal history of other venous thrombosis and embolism; Z79.01 Long term (current) use of anticoagulants; Z85.048 Personal history of other malignant neoplasm of rectum, rectosigmoid junction, and anus; I73.9 Peripheral vascular disease, unspecified
CPT/HCPCS: 80053; 80061; 80178; 80307; 83036; 84443; 85025; 85610; 85730; 93971; 96374; J2060; Q0163

== ENCOUNTER 2017-01-17 00:52 | Inpatient (IN) | payer OTHER, MEDICARE ==
[~2017-01-17 00:52] MED LIST changes: +APIX5TAB PO; -CIPR500T4 PO; -CLIN1CAP5 PO; +HALO5TAB PO; +LITH300T3 PO
[2017-01-17 01:20] VITALS: BP 135/87; PULSE 92; RESP 16; TEMP 98.6; O2SAT 97
[2017-01-17 01:56] LABS: AUTOMATED NEUTROPHIL # 4.8 TH/MM3 (1.8-7.7); BASOPHIL % 0.6 % (0.0-2.0); EOSINOPHIL # 0.1 TH/MM3 (0-0.4); EOSINOPHIL % 1.2 % (0.0-4.0); HEMATOCRIT 39.4 % (39.0-51.0); HEMO FLAGS DIFF FINAL; LYMPH % 20.2 % (9.0-44.0); LYMPHOCYTE # 1.5 TH/MM3 (1.0-4.8); MEAN CELL VOLUME 95.1 FL (80.0-100.0); MEAN CORPUSCULAR HEMOGLOBIN 31.6 PG (27.0-34.0); MEAN CORPUSCULAR HGB CONC 33.3 % (32.0-36.0); MONO % 10.3 % (0.0-8.0); NEUT % 67.7 % (16.0-70.0); PLATELET COUNT 231 TH/MM3 (150-450); RED BLOOD COUNT 4.14 MIL/MM3 (4.50-5.90); RED CELL DISTRIBUTION WIDTH 12.9 % (11.6-17.2); WHITE BLOOD COUNT 7.2 TH/MM3 (4.0-11.0)
[2017-01-17 02:07] LABS: APTT (PATIENT) 28.7 SEC (24.3-30.1); INTERNATIONAL NORMALIZED RATIO 1.1 RATIO; PROTHROMBIN TIME - PATIENT 12.2 SEC (9.8-11.6)
[2017-01-17 02:10] LABS: ALT (GPT) 38 U/L (12-78); ANION GAP 10 MEQ/L (5-15); AST (GOT) 28 U/L (15-37); BICARBONATE 22.7 MEQ/L (21.0-32.0); BLOOD UREA NITROGEN 11 MG/DL (7-18); CHLORIDE 105 MEQ/L (98-107); GLOMERULAR FILTRATION RATE 115 ML/MIN (>89); POTASSIUM 3.5 MEQ/L (3.5-5.1); SODIUM (NA) 138 MEQ/L (136-145)
[2017-01-17 02:12] LABS: ALKALINE PHOSPHATASE 110 U/L (45-117); TOTAL BILIRUBIN ADULT 0.8 MG/DL (0.2-1.0)
[2017-01-17 02:13] LABS: ALCOHOL LESS THAN 3 MG/DL (0-5)
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
[2017-01-17 03:14] LABS: BLOOD, URINE NEG (NEG); COMMENT (UR) CULT NOT INDICATED; CULTURE IF INDICATED CULT NOT INDICATED; GLUCOSE,URINE NEG (NEG); KETONE, URINE 40 mg/dL (NEG); MUCUS URINE FEW /lpf (OCC); NITRITE,URINE NEG (NEG); PH, URINE 5.5 (5.0-8.5); SQUAMOUS EPITHELIAL CELL URINE <1 /hpf (0-5); URINE COLOR YELLOW (YELLW/STRAW)
[2017-01-17 07:24] VITALS: BP 126/72; PULSE 80; RESP 17; TEMP 97.8; O2SAT 98
[2017-01-17] MEDS ORDERED: ACETAMINOPHEN 325 MG TAB PO ONE (07:30)
[2017-01-17 11:00] VITALS: BP 123/81; PULSE 78; RESP 16; TEMP 97.8; O2SAT 99
[2017-01-17 12:29] VITALS: BP 124/81; TEMP 97.9
[2017-01-17 13:56] VITALS: BP 131/86; PULSE 80; RESP 18; O2SAT 97
[2017-01-17] MEDS ORDERED: ALUMINUM/MAGNESIUM/SIMETH 30 ML CUP PO PRN (14:45)
[2017-01-17] MEDS ORDERED: MAGNESIUM HYDROXIDE SUSP 30 ML CUP PO PRN (14:45)
[2017-01-17] MEDS ORDERED: LORazepam 2 MG/ML VIAL IM PRN (14:45)
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
[2017-01-17 16:01] VITALS: BP 131/86
[2017-01-17] MEDS: ACETAMINOPHEN 325 MG TAB PO PRN (19:00)
[2017-01-17] MEDS: APIXABAN 5 MG TABLET PO SCH (21:00)
[2017-01-17] MEDS ORDERED: ZIPRASIDONE MESYLATE 20 MG VIAL IM ONE (21:00)
[2017-01-17] MEDS ORDERED: diphenhydrAMINE HCL 50 MG/ML VIAL IM ONE (21:00)
[2017-01-17] MEDS: ARIPiprazole 5 MG TAB PO SCH (21:00)
[2017-01-18] MEDS: ACETAMINOPHEN 325 MG TAB PO PRN ×2 (05:54→20:59)
[2017-01-18 05:58] VITALS: BP 152/83; PULSE 81; RESP 18; TEMP 97.2; O2SAT 96
--- NOTE | 2017-01-18 08:59 | HHI.PR ---
Subjective Remarks Follow up for DVT, bipolar disorder. Patient is doing well. He is sitting in his chair, ambulated in the room well too. No fever, chills. Objective Vitals Vital Signs Date Time Temp Pulse Resp B/P (MAP) Pulse Ox O2 Delivery O2 Flow Rate FiO2 01/18/17 05:58 97.2 81 18 152/83 (106) 96 01/17/17 16:01 80 18 131/86 (101) 97 01/17/17 13:56 80 18 131/86 (101) 97 Room Air 01/17/17 12:29 97.9 76 16 124/81 (95) 99 01/17/17 11:00 97.8 78 16 123/81 (95) 99 Room Air I/O 01/17/17 01/17/17 01/17/17 01/18/17 01/18/17 01/18/17 07:00 15:00 23:00 07:00 15:00 23:00 Intake Total 700 ml 600 ml 820 ml Balance 700 ml 600 ml 820 ml Intake Oral 700 ml 600 ml 820 ml # Voids 1 4 2 # Bowel Movements 0 Result Diagram: 01/17/17 0145 01/17/17 0145 Objective Remarks GENERAL: Alert, NAD. SKIN: Warm and dry. HEAD: Normocephalic. EYES: No scleral icterus. No injection or drainage. Left eye closed, has had prosthesis implanted. NECK: Supple, trachea midline. No JVD or lymphadenopathy. CARDIOVASCULAR: Regular rate and rhythm without murmurs, gallops, or rubs. RESPIRATORY: Breath sounds equal bilaterally. No accessory muscle use. GASTROINTESTINAL: Abdomen soft, non-tender, nondistended. MUSCULOSKELETAL: No cyanosis. Right leg shows chronic stasis dermatitis with some purulence. BACK: Nontender without obvious deformity. No CVA tenderness. A/P Problem List: (1) history of DVT left lower extremity Status: Chronic (2) bipolar disorder (3) Bipolar 1 disorder, manic, moderate ICD Code: F31.12 - Bipolar 1 disorder, manic, moderate Status: Chronic (4) Bipolar disorder, current episode mixed, severe, with psychotic features ICD Code: F31.64 - Bipolar disorder, current episode mixed, severe, with psychotic features (5) Hypertension ICD Code: I10 - Essential (primary) hypertension Status: Chronic (6) DVT (deep venous thrombosis) ICD Code: I82.409 - Acute embolism and thrombosis of unspecified deep veins of unspecified lower extremity Status: Acute (7) Peripheral vascular disease ICD Code: I73.9 - Peripheral vascular disease, unspecified (8) Bipolar disorder ICD Code: F31.9 - Bipolar disorder, unspecified Status: Acute (9) Agitation ICD Code: R45.1 - Restlessness and agitation Status: Acute (10) Schizophrenia, paranoid, chronic ICD Code: F20.0 - Paranoid schizophrenia Status: Acute (11) bipolar affective disorder recurrent most recent episode mixed severe Assessment and Plan Mr. Felix is a 61 year old male who was admitted to the psychiatry unit due to behavioral disturbance. Hospitalist service was consulted for medical management. Bipolar disorder - management per psychiatry. Currently on [place] 300mg Q12hrs. History of DVT - continue Apixaban 5mg Q12hrs, Abilify 5mg QHS. Chronic stasis dermatitis - Almost entire length of right leg is affected. - Basic wound care to reduce the chance of superimposed soft tissue infection. - Hypertension - Currently normotensive. No need for any BP meds. Full code. Apixaban. Problem Qualifiers (1) Bipolar disorder: Qualified Codes: F31.60 - Bipolar disorder, current episode mixed, unspecified Kasey Lee DO Jan 18, 2017 08:59
[2017-01-18] MEDS: APIXABAN 5 MG TABLET PO SCH ×2 (09:46→20:58)
[2017-01-18 13:41] LABS: AUTOMATED NEUTROPHIL # 3.5 TH/MM3 (1.8-7.7); BASOPHIL % 0.5 % (0.0-2.0); EOSINOPHIL # 0.2 TH/MM3 (0-0.4); EOSINOPHIL % 4.1 % (0.0-4.0); HEMATOCRIT 42.5 % (39.0-51.0); HEMO FLAGS DIFF FINAL; LYMPH % 28.1 % (9.0-44.0); LYMPHOCYTE # 1.7 TH/MM3 (1.0-4.8); MEAN CELL VOLUME 96.2 FL (80.0-100.0); MEAN CORPUSCULAR HEMOGLOBIN 31.1 PG (27.0-34.0); MEAN CORPUSCULAR HGB CONC 32.3 % (32.0-36.0); MONO % 7.2 % (0.0-8.0); NEUT % 60.1 % (16.0-70.0); PLATELET COUNT 238 TH/MM3 (150-450); RED BLOOD COUNT 4.41 MIL/MM3 (4.50-5.90); RED CELL DISTRIBUTION WIDTH 12.9 % (11.6-17.2); WHITE BLOOD COUNT 5.9 TH/MM3 (4.0-11.0)
[2017-01-18 14:04] LABS: ANION GAP 9 MEQ/L (5-15); AST (GOT) 19 U/L (15-37); BICARBONATE 25.5 MEQ/L (21.0-32.0); BLOOD UREA NITROGEN 10 MG/DL (7-18); CHLORIDE 104 MEQ/L (98-107); GLOMERULAR FILTRATION RATE 107 ML/MIN (>89); MAGNESIUM 1.9 MG/DL (1.5-2.5); POTASSIUM 3.8 MEQ/L (3.5-5.1); SODIUM (NA) 138 MEQ/L (136-145)
[2017-01-18 14:26] LABS: ALKALINE PHOSPHATASE 107 U/L (45-117); ALT (GPT) 37 U/L (12-78); FREE T4 1.16 NG/DL (0.76-1.46); HDL CHOLESTEROL 43.1 MG/DL (40.0-60.0); LDL CHOLESTEROL 45 MG/DL (0-99); TOTAL BILIRUBIN ADULT 0.3 MG/DL (0.2-1.0)
[2017-01-18] MEDS ORDERED: OLANZapine IM 10 MG VIAL IM PRN (14:45)
--- NOTE | 2017-01-18 14:59 | HHI.PYPN ---
Subjective Remarks On psychiatric evaluation today patient very manic, talkative, he says that he is a [place] , but he doesn't want to be here, that he has to be [facility] today. Patient says that he has millions of dollars and he will give me 1 million if I let him go. He says that he is bipolar, he lost his medication during the [place] and since then he has not take them. In the unit the patient has been very destructive, perseverant, restless, getting into other patient's room, asking the nurses the same questions over and over. Patient is oriented 3. He has been agitated, but not aggressive. Review of Systems Other No somatic complaints Objective Alert: Yes [place]: Person, Place, Date Mood: Other (manic) Affect: Labile Memory Intact: Immediate, Recent Hallucinations: Other (no perceptual disturbances) Delusions: No Delusion Type: Paranoid Suicidal: Ideation (he denies) Homicidal: Ideation (he denies) Insight/Judgment Poor judgment Labs Test 01/18/17 12:52 White Blood Count 5.9 TH/MM3 Red Blood Count 4.41 MIL/MM3 Hemoglobin 13.7 GM/DL Hematocrit 42.5 % Mean Corpuscular Volume 96.2 FL Mean Corpuscular Hemoglobin 31.1 PG Mean Corpuscular Hemoglobin Concent 32.3 % Red Cell Distribution Width 12.9 % Platelet Count 238 TH/MM3 Mean Platelet Volume 9.2 FL Neutrophils (%) (Auto) 60.1 % Lymphocytes (%) (Auto) 28.1 % Monocytes (%) (Auto) 7.2 % Eosinophils (%) (Auto) 4.1 % Basophils (%) (Auto) 0.5 % Neutrophils # (Auto) 3.5 TH/MM3 Lymphocytes # (Auto) 1.7 TH/MM3 Monocytes # (Auto) 0.4 TH/MM3 Eosinophils # (Auto) 0.2 TH/MM3 Basophils # (Auto) 0.0 TH/MM3 CBC Comment DIFF FINAL Differential Comment Blood Urea Nitrogen 10 MG/DL Creatinine 0.75 MG/DL Random Glucose 114 MG/DL Total Protein 6.8 GM/DL Albumin 3.0 GM/DL Calcium Level 9.3 MG/DL Phosphorus Level 4.0 MG/DL Magnesium Level 1.9 MG/DL Alkaline Phosphatase 107 U/L Aspartate Amino Transf (AST/SGOT) 19 U/L Alanine Aminotransferase (ALT/SGPT) 37 U/L Total Bilirubin 0.3 MG/DL Sodium Level 138 MEQ/L Potassium Level 3.8 MEQ/L Chloride Level 104 MEQ/L Carbon Dioxide Level 25.5 MEQ/L Anion Gap 9 MEQ/L Estimat Glomerular Filtration Rate 107 ML/MIN Triglycerides Level 102 MG/DL Cholesterol Level 108 MG/DL LDL Cholesterol 45 MG/DL HDL Cholesterol 43.1 MG/DL Cholesterol/HDL Ratio 2.50 RATIO Vitamin B12 Level 237 PG/ML 25-Hydroxy Vitamin D Total 29.7 ng/ML Free Thyroxine 1.16 NG/DL Thyroid Stimulating Hormone 3rd Gen 2.490 uIU/ML Vitals/IOs Vital Signs Date Time Temp Pulse Resp B/P (MAP) Pulse Ox O2 Delivery O2 Flow Rate FiO2 01/18/17 05:58 97.2 81 18 152/83 (106) 96 01/17/17 13:56 Room Air Intake and Output 01/18/17 01/18/17 01/19/17 08:00 16:00 00:00 Intake Total 820 ml Balance 820 ml Assessment & Plan Problem List: (1) Bipolar disorder ICD Codes: F31.9 - Bipolar disorder, unspecified Status: Acute Assessment & Plan: On psychiatric evaluation today the patient presents with luis sergio, delusions of grandiosity and paranoia. We will start lithium 300 mg twice a day. Klonopin 0.5 mg twice a day for agitation. Will order olanzapine 10 mg IM every 8 hours when necessary agitation and destructive behavior. Also will order an EKG. Assessment & Plan Estimated LOS: days Justification for Cont. Inpt. Patient is floridly manic and needs to continue psychiatric hospitalization for stabilization. Problem Qualifiers (1) Bipolar disorder: Qualified Codes: F31.60 - Bipolar disorder, current episode mixed, unspecified Trent Franco MD Jan 18, 2017 14:59
[2017-01-18] MEDS: LORazepam 1 MG TAB PO PRN (15:24)
[2017-01-18] MEDS: LITHIUM CARBONATE 300 MG CAP PO SCH ×2 (15:24→20:57)
--- NOTE | 2017-01-18 15:28 | EKG ---
Date Performed: 01/18/2017 Time Performed: 07:08:48 PTAGE: 61 years EKG: Sinus rhythm WITH OCCASIONAL SUPRAVENTRICULAR PREMATURE COMPLEXES BORDERLINE ECG PREVIOUS TRACING : 07/13/2011 14.53 Compared to prior tracing no significant change DOCTOR: Catracho Whitlock Interpretating Date/Time 01/18/2017 15:26:22
[2017-01-18 17:46] LABS: HEMOGLOBIN A1a 1.1 %; HEMOGLOBIN A1b 0.9 %; HEMOGLOBIN F 0.9 %; HEMOGLOBIN LA1C 2.1 %; HEMOGLOBIN P3 3.6 %
[2017-01-18 18:34] VITALS: BP 130/74; PULSE 84; RESP 18; TEMP 97.4; O2SAT 100
[2017-01-18] MEDS: ARIPiprazole 5 MG TAB PO SCH (20:58)
[2017-01-18] MEDS: clonazePAM 1 MG TAB PO SCH (20:58)
[2017-01-19] MEDS: ACETAMINOPHEN 325 MG TAB PO PRN ×4 (01:53→21:12)
[2017-01-19 06:14] VITALS: BP 166/89; PULSE 77; RESP 18; TEMP 97.5; O2SAT 100
[2017-01-19] MEDS: clonazePAM 1 MG TAB PO SCH ×2 (07:34→21:12)
[2017-01-19] MEDS: APIXABAN 5 MG TABLET PO SCH ×2 (09:28→21:00)
[2017-01-19] MEDS: LITHIUM CARBONATE 300 MG CAP PO SCH ×2 (09:28→17:29)
[2017-01-19] MEDS: LORazepam 1 MG TAB PO PRN ×2 (14:13→21:12)
--- NOTE | 2017-01-19 14:58 | HHI.PYPN ---
Subjective Remarks The patient was seen today for psychiatric reevaluation along with social insurance specialist , medical student and Ernestine, and nurse in charge. 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 He offered me $1 million if I discharge him today. However, his previous psychomotor agitation is improved and he is more attentive today which may be a sign of good response to medications. Patient is oriented 3, compliant with medications, no significant side effects reported to the moment. Review of Systems Other No somatic complaints Objective Alert: Yes [place]: Person, Place, Date Mood: Other (manic) Affect: Labile Memory Intact: Immediate, Recent Hallucinations: Other (no perceptual disturbances) Delusions: No Delusion Type: Paranoid Suicidal: Ideation (he denies) Homicidal: Ideation (he denies) Insight/Judgment Poor Vitals/IOs Vital Signs Date Time Temp Pulse Resp B/P (MAP) Pulse Ox O2 Delivery O2 Flow Rate FiO2 01/19/17 06:14 97.5 77 18 166/89 (114) 100 01/17/17 13:56 Room Air Intake and Output 01/19/17 01/19/17 01/20/17 08:00 16:00 00:00 Intake Total 480 ml 720 ml Balance 480 ml 720 ml Assessment & Plan Problem List: (1) Bipolar disorder ICD Codes: F31.9 - Bipolar disorder, unspecified Status: Acute Assessment & Plan: Patient's continued to be acutely manic, with marked emotional and verbal incontinence, disruptive and disorganized behavior, delusions of grandiosity. We'll increase lithium levels to 300 mg 3 times a day. Will measure lithium levels Sunday morning. Extensive support and psychoeducation provided Assessment & Plan Estimated LOS: days Justification for Cont. Inpt. Patient is acutely manic/delusional continues to continue psychiatric hospitalization for stabilization and safety Problem Qualifiers (1) Bipolar disorder: Qualified Codes: F31.60 - Bipolar disorder, current episode mixed, unspecified Trent Franco MD Jan 19, 2017 14:57
[2017-01-19 19:04] VITALS: BP 156/84; PULSE 78; RESP 18; TEMP 97.4; O2SAT 100
[2017-01-19] MEDS: ARIPiprazole 5 MG TAB PO SCH (21:12)
--- NOTE | 2017-01-19 21:27 | HHI.PR ---
Subjective Remarks Follow up for DVT, bipolar disorder. Patient is ambulating well, no fever, chills. He reports pain on his right lower ext. Objective Vitals Vital Signs Date Time Temp Pulse Resp B/P (MAP) Pulse Ox O2 Delivery O2 Flow Rate FiO2 01/19/17 19:04 97.4 78 18 156/84 (108) 100 01/19/17 06:14 97.5 77 18 166/89 (114) 100 I/O 01/18/17 01/18/17 01/18/17 01/19/17 01/19/17 01/19/17 07:00 15:00 23:00 07:00 15:00 23:00 Intake Total 820 ml 680 ml 1560 ml 480 ml 720 ml 320 ml Balance 820 ml 680 ml 1560 ml 480 ml 720 ml 320 ml Intake Oral 820 ml 680 ml 1560 ml 480 ml 720 ml 320 ml # Voids 2 4 4 2 # Bowel Movements 1 Result Diagram: 01/18/17 1252 01/18/17 1252 Objective Remarks GENERAL: Alert, NAD. SKIN: Warm and dry. HEAD: Normocephalic. EYES: No scleral icterus. No injection or drainage. Left eye closed, has had prosthesis implanted. NECK: Supple, trachea midline. No JVD or lymphadenopathy. CARDIOVASCULAR: Regular rate and rhythm without murmurs, gallops, or rubs. RESPIRATORY: Breath sounds equal bilaterally. No accessory muscle use. GASTROINTESTINAL: Abdomen soft, non-tender, nondistended. MUSCULOSKELETAL: No cyanosis. Right leg shows chronic stasis dermatitis with some purulence. BACK: Nontender without obvious deformity. No CVA tenderness. A/P Problem List: (1) history of DVT left lower extremity Status: Chronic (2) bipolar disorder (3) Bipolar 1 disorder, manic, moderate ICD Code: F31.12 - Bipolar 1 disorder, manic, moderate Status: Chronic (4) Bipolar disorder, current episode mixed, severe, with psychotic features ICD Code: F31.64 - Bipolar disorder, current episode mixed, severe, with psychotic features (5) Hypertension ICD Code: I10 - Essential (primary) hypertension Status: Chronic (6) DVT (deep venous thrombosis) ICD Code: I82.409 - Acute embolism and thrombosis of unspecified deep veins of unspecified lower extremity Status: Acute (7) Peripheral vascular disease ICD Code: I73.9 - Peripheral vascular disease, unspecified (8) Bipolar disorder ICD Code: F31.9 - Bipolar disorder, unspecified Status: Acute (9) Agitation ICD Code: R45.1 - Restlessness and agitation Status: Acute (10) Schizophrenia, paranoid, chronic ICD Code: F20.0 - Paranoid schizophrenia Status: Acute (11) bipolar affective disorder recurrent most recent episode mixed severe Assessment and Plan Mr. Felix is a 61 year old male who was admitted to the psychiatry unit due to behavioral disturbance. Hospitalist service was consulted for medical management. Bipolar disorder - management per psychiatry. Currently on [place] 300mg Q12hrs. History of DVT - continue Apixaban 5mg Q12hrs, Abilify 5mg QHS. Chronic stasis dermatitis - Almost entire length of right leg is affected. - Basic wound care to reduce the chance of superimposed soft tissue infection. - Will consult wound care. - Hypertension - Currently normotensive. No need for any BP meds. Full code. Apixaban. Problem Qualifiers (1) Bipolar disorder: Qualified Codes: F31.60 - Bipolar disorder, current episode mixed, unspecified Kasey Lee DO Jan 19, 2017 21:26
[2017-01-20] MEDS: ACETAMINOPHEN 325 MG TAB PO PRN ×3 (01:00→20:13)
[2017-01-20 06:15] VITALS: BP 144/86; PULSE 97; RESP 16; TEMP 97.6; O2SAT 98
[2017-01-20] MEDS: APIXABAN 5 MG TABLET PO SCH ×2 (07:12→20:14)
[2017-01-20] MEDS: LITHIUM CARBONATE 300 MG CAP PO SCH ×3 (07:13→17:18)
[2017-01-20] MEDS: clonazePAM 1 MG TAB PO SCH ×2 (07:13→20:13)
--- NOTE | 2017-01-20 11:26 | HHI.PYPN ---
Subjective Remarks Pt seen and discussed with staff. He remains paranoid and delusional believing that President [place] is sending [place] to the psychiatric unit. He has been intrusive with staff. He is compliant with medications and care. He states that police arrested him because he missed one day of medication and he is suing [place] and the police for "the inconvenience". No SI/HI Objective Alert: Yes [place]: Person, Place, Date Mood: Other (elevated) Affect: Labile Memory Intact: Immediate, Recent Hallucinations: Other (no perceptual disturbances) Delusions: No Delusion Type: Paranoid Suicidal: Ideation (he denies) Homicidal: Ideation (he denies) Insight/Judgment poor Vitals/IOs Vital Signs Date Time Temp Pulse Resp B/P (MAP) Pulse Ox O2 Delivery O2 Flow Rate FiO2 01/20/17 06:15 97.6 97 16 144/86 (105) 98 01/17/17 13:56 Room Air Assessment & Plan Problem List: (1) Bipolar disorder ICD Codes: F31.9 - Bipolar disorder, unspecified Status: Acute Assessment & Plan Continue current tx plan Estimated LOS: days Justification for Cont. Inpt. impairment in reality testing. Problem Qualifiers (1) Bipolar disorder: Qualified Codes: F31.60 - Bipolar disorder, current episode mixed, unspecified Desiree Gillette MD Jan 20, 2017 11:26
[2017-01-20 18:00] VITALS: BP 150/82; PULSE 86; RESP 17; TEMP 98.6; O2SAT 97
[2017-01-20] MEDS: ARIPiprazole 5 MG TAB PO SCH (20:13)
[2017-01-20] MEDS: LORazepam 1 MG TAB PO PRN (20:14)
[2017-01-21] MEDS: ACETAMINOPHEN 325 MG TAB PO PRN ×4 (01:26→20:44)
[2017-01-21 05:49] VITALS: BP 149/89; PULSE 70; RESP 17; TEMP 97.5; O2SAT 97
[2017-01-21] MEDS: LITHIUM CARBONATE 300 MG CAP PO SCH ×3 (08:09→17:05)
[2017-01-21] MEDS: clonazePAM 1 MG TAB PO SCH ×2 (08:09→20:42)
[2017-01-21] MEDS: APIXABAN 5 MG TABLET PO SCH ×2 (08:09→20:42)
--- NOTE | 2017-01-21 13:02 | HHI.PYPN ---
Subjective Remarks Pt seen and discussed with staff. He has been intrusive with peers and staff and rambling about synagogue topics. He told RN that he was admitted for "vein surgery" and he is going to get everyone fired from the hospital. He denies SI/ HI. He is compliant with medications and denies side effects. Objective Alert: Yes [place]: Person, Place, Date Mood: Other (elevated) Affect: Labile Memory Intact: Immediate, Recent Hallucinations: Other (no perceptual disturbances) Delusions: No Delusion Type: Paranoid Suicidal: Ideation (he denies) Homicidal: Ideation (he denies) Insight/Judgment poor Vitals/IOs Vital Signs Date Time Temp Pulse Resp B/P (MAP) Pulse Ox O2 Delivery O2 Flow Rate FiO2 01/21/17 05:49 97.5 70 17 149/89 (109) 97 01/17/17 13:56 Room Air Assessment & Plan Problem List: (1) Bipolar disorder ICD Codes: F31.9 - Bipolar disorder, unspecified Status: Acute Assessment & Plan Contnue current tx plan. Estimated LOS: days Justification for Cont. Inpt. impairments in social functioning and reality testing Problem Qualifiers (1) Bipolar disorder: Qualified Codes: F31.64 - Bipolar disorder, current episode mixed, severe, with psychotic features Desiree Gillette MD Jan 21, 2017 13:02
[2017-01-21 17:56] VITALS: BP 132/75; PULSE 87; RESP 17; TEMP 97.5; O2SAT 99
[2017-01-21] MEDS: ARIPiprazole 5 MG TAB PO SCH (20:42)
[2017-01-21] MEDS: LORazepam 1 MG TAB PO PRN (20:45)
[2017-01-22] MEDS: ACETAMINOPHEN 325 MG TAB PO PRN ×4 (02:01→20:50)
[2017-01-22 06:02] VITALS: BP 126/76; PULSE 87; RESP 21; TEMP 98; O2SAT 100
[2017-01-22] MEDS: LITHIUM CARBONATE 300 MG CAP PO SCH ×3 (09:00→18:00)
[2017-01-22] MEDS: clonazePAM 1 MG TAB PO SCH ×2 (09:00→20:49)
[2017-01-22] MEDS: APIXABAN 5 MG TABLET PO SCH ×2 (09:00→20:50)
--- NOTE | 2017-01-22 13:56 | HHI.PYPN ---
Subjective Remarks Patient was seen today for psychiatric reevaluation along with the nurse in charge, patient continues to be intrusive, talkative, at times pressured, with grandour and paranoid delusions. 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 Patient also reports that there are people here in the unit that are planning to steal his properties. Patient has been compliant with medications, no significant side effects. No agitation or aggressive behaviors displayed in the unit. Patient has a continues purulent secretion in his left eye. Review of Systems Eyes: COMPLAINS OF: Eye inflammation Objective Alert: Yes [place]: Person, Place, Date Mood: Other (elevated) Affect: Labile Memory Intact: Immediate, Recent Hallucinations: Other (no perceptual disturbances) Delusions: No Delusion Type: Paranoid Suicidal: Ideation (he denies) Homicidal: Ideation (he denies) Insight/Judgment Poor Vitals/IOs Vital Signs Date Time Temp Pulse Resp B/P (MAP) Pulse Ox O2 Delivery O2 Flow Rate FiO2 01/22/17 06:02 98.0 87 21 126/76 (93) 100 Assessment & Plan Problem List: (1) Bipolar disorder ICD Codes: F31.9 - Bipolar disorder, unspecified Status: Acute Assessment & Plan: Patient shows a modest response to current psychotropic regimen, continues to be manic, delusional. Will increase Abilify to 10 mg daily for mood stabilization and psychosis. Will order lithium levels. Also will order a hospitalist consult for eye inflammation. Assessment & Plan Estimated LOS: days Justification for Cont. Inpt. Patient is acutely manic, needs continue psychiatric hospitalization for stabilization Problem Qualifiers (1) Bipolar disorder: Qualified Codes: F31.64 - Bipolar disorder, current episode mixed, severe, with psychotic features Trent Franco MD Jan 22, 2017 13:56
--- NOTE | 2017-01-22 14:19 | HHI.PR ---
Subjective Remarks Follow up for DVT, bipolar disorder. Patient is complaining of right leg pain. No chest pain, dyspnea, fever, chills. He also complains of some discharge from his left eye where he had a prosthetic eye. Objective Vitals Vital Signs Date Time Temp Pulse Resp B/P (MAP) Pulse Ox O2 Delivery O2 Flow Rate FiO2 01/22/17 06:02 98.0 87 21 126/76 (93) 100 01/21/17 17:56 97.5 87 17 132/75 (94) 99 Result Diagram: 01/18/17 1252 01/18/17 1252 Objective Remarks GENERAL: Alert, NAD. SKIN: Warm and dry. HEAD: Normocephalic. EYES: No scleral icterus. No injection or drainage from right eye. Left eye closed, some purulent drainage noted. NECK: Supple, trachea midline. No JVD or lymphadenopathy. CARDIOVASCULAR: Regular rate and rhythm without murmurs, gallops, or rubs. RESPIRATORY: Breath sounds equal bilaterally. No accessory muscle use. GASTROINTESTINAL: Abdomen soft, non-tender, nondistended. MUSCULOSKELETAL: No cyanosis. Right leg shows chronic stasis dermatitis with some purulence. BACK: Nontender without obvious deformity. No CVA tenderness. A/P Problem List: (1) history of DVT left lower extremity Status: Chronic (2) bipolar disorder (3) Bipolar 1 disorder, manic, moderate ICD Code: F31.12 - Bipolar 1 disorder, manic, moderate Status: Chronic (4) Bipolar disorder, current episode mixed, severe, with psychotic features ICD Code: F31.64 - Bipolar disorder, current episode mixed, severe, with psychotic features (5) Hypertension ICD Code: I10 - Essential (primary) hypertension Status: Chronic (6) DVT (deep venous thrombosis) ICD Code: I82.409 - Acute embolism and thrombosis of unspecified deep veins of unspecified lower extremity Status: Acute (7) Peripheral vascular disease ICD Code: I73.9 - Peripheral vascular disease, unspecified (8) Bipolar disorder ICD Code: F31.9 - Bipolar disorder, unspecified Status: Acute (9) Agitation ICD Code: R45.1 - Restlessness and agitation Status: Acute (10) Schizophrenia, paranoid, chronic ICD Code: F20.0 - Paranoid schizophrenia Status: Acute (11) bipolar affective disorder recurrent most recent episode mixed severe Assessment and Plan Mr. Felix is a 61 year old male who was admitted to the psychiatry unit due to behavioral disturbance. Hospitalist service was consulted for medical management. Bipolar disorder - management per psychiatry. Currently on [place] 300mg Q12hrs. History of DVT - continue Apixaban 5mg Q12hrs, Abilify 5mg QHS. Chronic stasis dermatitis - Almost entire length of right leg is affected. - Basic wound care to reduce the chance of superimposed soft tissue infection. - We tried to obtain PARUL. Due to recent DVT, PARUL could not be done. - I have discussed the case with a vascular surgeon who recommended outpatient follow up. - Vascular surgeon does not think patient needs any work up or intervention with regards to his right leg at this point. - Left eye purulent discharge - Will start Erythromycin - Hypertension - Currently normotensive. No need for any BP meds. Full code. Apixaban. Problem Qualifiers (1) Bipolar disorder: Qualified Codes: F31.64 - Bipolar disorder, current episode mixed, severe, with psychotic features Kasey Lee DO Jan 22, 2017 14:19
[2017-01-22] MEDS ORDERED: ERYTHROMYCIN 0.5% OPTH OINT 3.5 GM TUBO EACH EYE SCH (14:30)
[2017-01-22 16:52] VITALS: BP 144/79; PULSE 96; RESP 18; TEMP 98; O2SAT 99
[2017-01-22] MEDS: GABAPENTIN 300 MG CAP PO SCH (18:00)
[2017-01-22] MEDS ORDERED: TEMAZEPAM 15 MG CAP PO PRN (18:15)
[2017-01-22] MEDS: LORazepam 1 MG TAB PO PRN (20:49)
[2017-01-22] MEDS: CIPROFLOXACIN 0.3% OPTH OINT 3.5 GM TUBO EACH EYE SCH (20:50)
[2017-01-22] MEDS ORDERED: ARIPiprazole 5 MG TAB PO SCH (21:00)
[2017-01-23] MEDS: ACETAMINOPHEN 325 MG TAB PO PRN (02:38)
[2017-01-23] MEDS: LORazepam 1 MG TAB PO PRN ×2 (03:56→13:55)
[2017-01-23] MEDS: CIPROFLOXACIN 0.3% OPTH OINT 3.5 GM TUBO EACH EYE SCH ×4 (06:00→21:56)
[2017-01-23 06:11] VITALS: BP 130/66; PULSE 71; RESP 18; TEMP 97.7; O2SAT 97
[2017-01-23] MEDS: LITHIUM CARBONATE 300 MG CAP PO SCH ×3 (08:56→17:10)
[2017-01-23] MEDS: APIXABAN 5 MG TABLET PO SCH ×2 (08:57→21:25)
[2017-01-23] MEDS: GABAPENTIN 300 MG CAP PO SCH ×3 (08:57→17:11)
[2017-01-23] MEDS: clonazePAM 1 MG TAB PO SCH ×3 (08:57→21:25)
[2017-01-23 11:35] VITALS: BP 147/80; PULSE 82; RESP 20; O2SAT 99
--- NOTE | 2017-01-23 11:40 | HHI.PR ---
Addendum to Inpatient Note Additional Information Received a call from RN - patient is apparently having chest pain for two days and he wants a stent in his heart so that he does not get a heart attack or stroke. He did not mention of chest pain when I saw him on 01/22/2017. We will get an EKG and set of cardiac enzymes. If they are unremarkable, we will not do any further work up. He may benefit from some anxiety medications. With regards to his right leg, he needs to follow up in the outpatient setting. Kasey Lee DO Jan 23, 2017 11:40 am
--- NOTE | 2017-01-23 16:49 | HHI.PYPN ---
Subjective Remarks Patient seen today for psychiatric reevaluation, patient continues to be very talkative, at times disorganized, with delusions of grandiosity, stating that he has $6 million under his bed and that is the reason he has to be discharged as possible. Patient also has been restless, pacing in the unit, at times difficult to redirect. Patient denies suicidal and homicidal ideation, he denies visual and auditory hallucinations. Patient is fully oriented 3. He is compliant with his medications, no significant side effects reported. Objective Alert: Yes [place]: Person, Place, Date Mood: Other (elevated) Affect: Labile Memory Intact: Immediate, Recent Hallucinations: Other (no perceptual disturbances) Delusions: No Delusion Type: Paranoid Suicidal: Ideation (he denies) Homicidal: Ideation (he denies) Insight/Judgment Poor Labs Test 01/22/17 21:58 [place] Level 0.5 MEQ/L Vitals/IOs Vital Signs Date Time Temp Pulse Resp B/P (MAP) Pulse Ox O2 Delivery O2 Flow Rate FiO2 01/23/17 11:35 82 20 147/80 (102) 99 01/23/17 06:11 97.7 Assessment & Plan Problem List: (1) Bipolar disorder ICD Codes: F31.9 - Bipolar disorder, unspecified Status: Acute Assessment & Plan: [place] level is 0.5. We will continue same dose. We will increase today Abilify to 20 mg daily for mood stabilization. Assessment & Plan Estimated LOS: days Justification for Cont. Inpt. Patient is acutely manic/psychotic he needs to continue psychiatric hospitalization for stabilization. Problem Qualifiers (1) Bipolar disorder: Qualified Codes: F31.64 - Bipolar disorder, current episode mixed, severe, with psychotic features Trent Franco MD Jan 23, 2017 16:49
[2017-01-23 17:06] VITALS: BP 133/77; PULSE 86; RESP 18; TEMP 98.4; O2SAT 97
[2017-01-23 19:15] LABS: CREATINE KINASE 50 U/L (39-308)
[2017-01-23] MEDS: ARIPiprazole 5 MG TAB PO SCH (21:24)
[2017-01-24] MEDS: ACETAMINOPHEN 325 MG TAB PO PRN ×3 (00:49→16:13)
[2017-01-24] MEDS: CIPROFLOXACIN 0.3% OPTH OINT 3.5 GM TUBO EACH EYE SCH ×3 (05:06→21:30)
[2017-01-24 06:11] VITALS: BP 148/78; PULSE 75; RESP 18; TEMP 97.4; O2SAT 98
[2017-01-24] MEDS: LITHIUM CARBONATE 300 MG CAP PO SCH ×4 (09:02→21:30)
[2017-01-24] MEDS: clonazePAM 1 MG TAB PO SCH ×2 (09:02→21:30)
[2017-01-24] MEDS: APIXABAN 5 MG TABLET PO SCH ×2 (09:03→21:29)
[2017-01-24] MEDS: GABAPENTIN 300 MG CAP PO SCH ×3 (09:03→17:52)
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
--- NOTE | 2017-01-24 15:14 | EKG ---
Date Performed: 01/23/2017 Time Performed: 16:40:58 PTAGE: 61 years EKG: Sinus rhythm NORMAL ECG PREVIOUS TRACING : 01/18/2017 07.08 Compared to prior tracing no significant change DOCTOR: Grady Caceres Interpretating Date/Time 01/24/2017 15:12:29
[2017-01-24 17:43] VITALS: BP 138/66; PULSE 87; RESP 18; TEMP 98.1; O2SAT 99
--- NOTE | 2017-01-24 18:07 | HHI.PR ---
Subjective Remarks c/o right lower extremity pain and some erythema c/o very dry feet denies cp/sob Objective Vitals Vital Signs Date Time Temp Pulse Resp B/P (MAP) Pulse Ox O2 Delivery O2 Flow Rate FiO2 01/24/17 17:43 98.1 87 18 138/66 (90) 99 01/24/17 06:11 97.4 75 18 148/78 (101) 98 Objective Remarks awake and alert clear lungs BL right lower extremity is edematous, tender to palpation with mild erythema BL lower extremities very dry with dry scaly skin left eye purulent discharge Medications and IVs Current Medications Medications (Trade) Dose Ordered Sig/Cb Route Start Time Stop Time Status Last Admin (Tylenol) 650 mg Q4H PRN PO 01/17/17 14:45 01/24/17 16:13 (Milk Of Magnesia Liq) 30 ml DAILY PRN PO 01/17/17 14:45 (Mag-Al Plus Susp Liq) 30 ml Q6H PRN PO 01/17/17 14:45 01/21/17 18:12 (Eliquis) 5 mg BID PO 01/17/17 21:00 01/24/17 09:03 (ZyPREXA INJ) 10 mg Q12H PRN IM 01/18/17 14:45 (KlonoPIN) 1 mg Q12HR PO 01/18/17 21:00 01/24/17 09:02 (Neurontin) 300 mg TID PO 01/22/17 18:00 01/24/17 17:52 (Restoril) 15 mg HS PRN PO 01/22/17 18:15 Future Hold (Ciloxan 0.3% Opth Oint) 1 applic Q8HR EACH EYE 01/22/17 22:00 01/27/17 21:59 01/24/17 13:55 (Abilify) 20 mg HS PO 01/23/17 21:00 01/23/17 21:24 (Foley Carbonate) 600 mg BID PO 01/24/17 21:00 A/P Problem List: (1) history of DVT left lower extremity Status: Chronic (2) bipolar disorder (3) Bipolar 1 disorder, manic, moderate ICD Code: F31.12 - Bipolar 1 disorder, manic, moderate Status: Chronic (4) Bipolar disorder, current episode mixed, severe, with psychotic features ICD Code: F31.64 - Bipolar disorder, current episode mixed, severe, with psychotic features (5) Hypertension ICD Code: I10 - Essential (primary) hypertension Status: Chronic (6) DVT (deep venous thrombosis) ICD Code: I82.409 - Acute embolism and thrombosis of unspecified deep veins of unspecified lower extremity Status: Acute (7) Peripheral vascular disease ICD Code: I73.9 - Peripheral vascular disease, unspecified (8) Bipolar disorder ICD Code: F31.9 - Bipolar disorder, unspecified Status: Acute (9) Agitation ICD Code: R45.1 - Restlessness and agitation Status: Acute (10) Schizophrenia, paranoid, chronic ICD Code: F20.0 - Paranoid schizophrenia Status: Acute (11) bipolar affective disorder recurrent most recent episode mixed severe (12) Chest pain ICD Code: R07.9 - Chest pain, unspecified Assessment and Plan Mr. Felix is a 61 year old male who was admitted to the psychiatry unit due to behavioral disturbance. Hospitalist service was consulted for medical management. Bipolar disorder - management per psychiatry. Currently on Foley 300mg Q12hrs. History of DVT - continue Apixaban 5mg Q12hrs, Abilify 5mg QHS. Chronic stasis dermatitis - Almost entire length of right leg is affected. - Basic wound care to reduce the chance of superimposed soft tissue infection. - We tried to obtain PARUL. Due to recent DVT, PARUL could not be done. - I have discussed the case with a vascular surgeon who recommended outpatient follow up. - Vascular surgeon does not think patient needs any work up or intervention with regards to his right leg at this point. - Left eye purulent discharge - Started on Ciprofloxacin eye drops. - Still some purulence observed - Hypertension - Currently normotensive. No need for any BP meds. - chest pain - c/o chest pain on 01/23. G reviewed by me showed normal sinus rhythm. Troponins negative. Chest pain has resolved. Full code. Apixaban. Problem Qualifiers (1) Bipolar disorder: Qualified Codes: F31.64 - Bipolar disorder, current episode mixed, severe, with psychotic features Ross Rea MD Jan 24, 2017 18:07
[2017-01-24] MEDS: LACTIC ACID (AMMONIUM LACTATE) 12% LOTION 225 GM BTL TOPICAL SCH (21:00)
[2017-01-24] MEDS: ARIPiprazole 5 MG TAB PO SCH (21:30)
[2017-01-25] MEDS: ACETAMINOPHEN 325 MG TAB PO PRN (03:21)
[2017-01-25] MEDS: CIPROFLOXACIN 0.3% OPTH OINT 3.5 GM TUBO EACH EYE SCH ×2 (05:51→12:51)
[2017-01-25 06:10] VITALS: BP 134/72; PULSE 73; RESP 15; TEMP 98; O2SAT 97
[2017-01-25] MEDS: clonazePAM 1 MG TAB PO SCH (08:04)
[2017-01-25] MEDS: APIXABAN 5 MG TABLET PO SCH (08:04)
[2017-01-25] MEDS: LITHIUM CARBONATE 300 MG CAP PO SCH (08:04)
[2017-01-25] MEDS: GABAPENTIN 300 MG CAP PO SCH ×2 (08:04→12:43)
[2017-01-25] MEDS: LACTIC ACID (AMMONIUM LACTATE) 12% LOTION 225 GM BTL TOPICAL SCH (08:09)
[2017-01-25] MEDS ORDERED: ARIP1TAB11 PO (11:15)
[2017-01-25] MEDS ORDERED: APIX5TAB PO (11:15)
[2017-01-25] MEDS ORDERED: LITH300C2 PO (11:15)
[2017-01-25] MEDS ORDERED: NEUR300C PO (11:15)
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
[2017-01-25] MEDS ORDERED: ABILIFY 400 MG IM ONE (13:00)
== END 2017-01-25 13:40 | disposition home or self-care (01) | DRG 885 ==
LOC: NEPE 00:52 → NEDA 14:38 → H4EA 17:52 → H270 01-19 19:30
PROVIDERS: ADMIT Psychiatry & Neurology Psychiatry; ATTEND Psychiatry & Neurology Psychiatry
DX: F31.64 Bipolar disorder, current episode mixed, severe, with psychotic features (principal); L03.115 Cellulitis of right lower limb; I10 Essential (primary) hypertension; L03.116 Cellulitis of left lower limb; I73.9 Peripheral vascular disease, unspecified; R51 Headache; I87.8 Other specified disorders of veins; I87.2 Venous insufficiency (chronic) (peripheral); R07.9 Chest pain, unspecified; H57.8 Other specified disorders of eye and adnexa; Z79.01 Long term (current) use of anticoagulants; Z91.14 Patient's other noncompliance with medication regimen; Z86.718 Personal history of other venous thrombosis and embolism; Z85.038 Personal history of other malignant neoplasm of large intestine; Z92.21 Personal history of antineoplastic chemotherapy; Z97.0 Presence of artificial eye; Z87.891 Personal history of nicotine dependence
CPT/HCPCS: 80053; 80061; 80178; 80307; 81001; 82306; 82550; 82607; 83036; 83735; 84100; 84439; 84443; 84484; 85025; 85610; 85730; 93005; 99285; J1200; J3486

== ENCOUNTER 2017-02-07 02:40 | Emergency (ER) | payer MEDICARE, OTHER ==
[~2017-02-07] VITALS: Ht 182.9 cm; Wt 105.7 kg
[~2017-02-07 02:40] MED LIST changes: +ARIP1TAB11 PO; +LITH300C2 PO; +NEUR300C PO
[2017-02-07 02:43] VITALS: BP 180/90; PULSE 87; RESP 16; TEMP 97.6; O2SAT 96
[2017-02-07 03:00] VITALS: BP 141/76; PULSE 89; RESP 16; O2SAT 98
[2017-02-07 04:05] LABS: AUTOMATED NEUTROPHIL # 6.1 TH/MM3 (1.8-7.7); BASOPHIL % 0.5 % (0.0-2.0); EOSINOPHIL # 0.6 TH/MM3 (0-0.4); EOSINOPHIL % 6.9 % (0.0-4.0); HEMO FLAGS DIFF FINAL; LYMPH % 22.3 % (9.0-44.0); LYMPHOCYTE # 2.1 TH/MM3 (1.0-4.8); MEAN CORPUSCULAR HEMOGLOBIN 30.9 PG (27.0-34.0); MEAN CORPUSCULAR HGB CONC 32.9 % (32.0-36.0); NEUT % 64.3 % (16.0-70.0); PLATELET COUNT 267 TH/MM3 (150-450); RED BLOOD COUNT 4.36 MIL/MM3 (4.50-5.90); RED CELL DISTRIBUTION WIDTH 13.6 % (11.6-17.2); WHITE BLOOD COUNT 9.4 TH/MM3 (4.0-11.0)
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
[2017-02-07 04:13] LABS: CHLORIDE 109 MEQ/L (98-107); POTASSIUM 3.7 MEQ/L (3.5-5.1); SODIUM (NA) 140 MEQ/L (136-145)
[2017-02-07 04:17] LABS: ANION GAP 6 MEQ/L (5-15); BICARBONATE 25.2 MEQ/L (21.0-32.0); BLOOD UREA NITROGEN 15 MG/DL (7-18)
[2017-02-07 04:18] LABS: APTT (PATIENT) 27.1 SEC (24.3-30.1)
[2017-02-07 04:20] LABS: ALT (GPT) 32 U/L (12-78); AST (GOT) 13 U/L (15-37); GLOMERULAR FILTRATION RATE 112 ML/MIN (>89)
[2017-02-07 04:22] LABS: BLOOD, URINE NEG (NEG); GLUCOSE,URINE NEG (NEG); KETONE, URINE NEG (NEG); NITRITE,URINE NEG (NEG); TOTAL BILIRUBIN ADULT 0.2 MG/DL (0.2-1.0)
[2017-02-07 04:23] LABS: ALKALINE PHOSPHATASE 115 U/L (45-117)
[2017-02-07 04:36] LABS: URINE COLOR YELLOW (YELLW/STRAW)
[2017-02-07 04:37] LABS: MUCUS URINE OCC /lpf (OCC); SQUAMOUS EPITHELIAL CELL URINE 0-5 /hpf (0-5)
[2017-02-07 04:38] LABS: COMMENT (UR) CULT NOT INDICATED; CULTURE IF INDICATED CULT NOT INDICATED
--- NOTE | 2017-02-07 04:59 | RADRPT ---
EXAM DATE/TIME: 02/07/2017 09:32 [facility] COMPARISON: US LEG RIGHT VENOUS DOPPLER, April 17, 2014, 3:19. US LEG RIGHT VENOUS DOPPLER, December 26, 2016, 11:14. VENOGRAM, RIGHT LEG, April 16, 2015, 9:12. INDICATIONS : Right leg pain. MEDICAL HISTORY : Hypertension. DVT. Cardiac disorder. SURGICAL HISTORY : IVC filter and removal. ENCOUNTER: Initial ACUITY: 2 weeks PAIN SCORE: 5/10 LOCATION: Right leg. TECHNIQUE: Venous ultrasound of the leg was performed from the inguinal ligament to the proximal calf. Real-no e, color Doppler and spectral tracing, compression and augmentation techniques were used. FINDINGS: There is clot present in the right common femoral vein and proximal superficial femoral vein as noted on recent previous exams. There is color flow present in the right iliac vein. The more distal deep venous structures of the right leg are stable and patent. CONCLUSION: Persistent right leg DVT Toribio Lopez MD on February 07, 2017 at 4:53 Board Certified Radiologist. This report was verified electronically.
[2017-02-07 05:48] VITALS: BP 158/78
== END 2017-02-07 05:51 | disposition home or self-care (01) ==
LOC: PHED 02:40
DX: I82.401 Acute embolism and thrombosis of unspecified deep veins of right lower extremity (principal); Z91.14 Patient's other noncompliance with medication regimen; I10 Essential (primary) hypertension; F17.200 Nicotine dependence, unspecified, uncomplicated; Z86.718 Personal history of other venous thrombosis and embolism
CPT/HCPCS: 80053; 81001; 84484; 85025; 85610; 85730; 93971

== ENCOUNTER 2017-02-15 18:55 | Emergency (ER) | payer OTHER ==
[~2017-02-15] VITALS: Ht 182.9 cm; Wt 104.4 kg
[2017-02-15 19:06] VITALS: BP 142/72; PULSE 88; RESP 16; TEMP 98.1; O2SAT 100
[2017-02-16] MEDS ORDERED: COUM4TAB PO (00:14)
[2017-02-16] MEDS ORDERED: LISI-519 PO (00:14)
== END 2017-02-15 19:36 | disposition left against medical advice (07) ==
LOC: PHED 18:55
DX: M79.604 Pain in right leg (principal)
CPT/HCPCS: 99281

== ENCOUNTER 2017-02-15 22:32 | Emergency (ER) | payer OTHER ==
[~2017-02-15] VITALS: Ht 182.9 cm; Wt 108.2 kg
[2017-02-15 23:38] VITALS: BP 147/75; PULSE 86; RESP 20; TEMP 98.1; O2SAT 98
[2017-02-16] MEDS ORDERED: LISI-519 PO (00:14)
[2017-02-16] MEDS ORDERED: COUM4TAB PO (00:14)
--- NOTE | 2017-02-16 01:16 | PD ---
HPI Chief Complaint: Fall Time Seen by Provider: 01:10 Travel History International Travel<30 days: No Contact w/Intl Traveler<30days: No Traveled to known affect area: No History of Present Illness HPI The patient is a 61-year-old male that states he was in [facility] around 0 [phone] this morning. Apparently he came in morning to be seen for his left shoulder pain but left without being seen. He states he called [facility] and they told him to get seen by a physician. This time he called the ambulance and came in to be seen. He states the electric golf cart fell on him. He has been taking extra strength Tylenol for pain. PFSH Past Medical History Hx Anticoagulant Therapy: Yes Bipolar Disorder: Yes Anxiety: Yes Depression: Yes Cancer: Yes (COLON CANCER 2003 HAD CHEMO FOR 1 YEAR) Cardiovascular Problems: Yes Chemotherapy: Yes (PAST IN 2003 FOR COLON CA) Diabetes: No Diminished Hearing: No Deep Vein Thrombosis: Yes Gastrointestinal Disorders: Yes (PER MEDICAL RECORD) Hepatitis: No Hiatal Hernia: No Hypertension: Yes Musculoskeletal: No (PER MEDICAL RECORD) Neurologic: Yes Psychiatric: Yes Respiratory: No (PER MEDICAL RECORD) Integumentary: Yes (CELLULITIS LOWER LEGS) Immunizations Current: Yes Thyroid Disease: No Tetanus Vaccination: < 5 Years Influenza Vaccination: No Past Surgical History Abdominal Surgery: Yes (COLON CANCER WITH BOWEL RESECTION AND CHEMO) Body Medical Devices: IVT FILTER PER MEDICAL RECORD Cardiac Surgery: No Ear Surgery: No Endocrine Surgery: No Eye Surgery: Yes (LEFT EYE PROSTHESIS) Genitourinary Surgery: Yes (VASECTOMY) Gynecologic Surgery: No Neurologic Surgery: No Oral Surgery: No Pacemaker: No Thoracic Surgery: No Other Surgery: Yes (2003 COLON resection, ivc filter placement) Social History Alcohol Use: No Tobacco Use: Yes (2-3 cigars per day ) Substance Use: No Allergies-Medications (Allergen,Severity, Reaction): Coded Allergies: No Known Allergies (Verified , 02/16/17) Reported Meds & Prescriptions Reported Meds & Active Scripts Active [place] Carbonate 300 Mg Tab 300 Mg PO 1 PO AM, 2 PO HS Reported Lisinopril 5 Mg Tab 5 Mg PO DAILY Coumadin (Warfarin) 4 Mg Tab 4 Mg PO DAILY Review of Systems Except as stated in HPI: all other systems reviewed are Neg Physical Exam Narrative GENERAL: The patient is alert, oriented 3 in minimal apparent distress with his left shoulder pain. He states he is requesting Gatorade to drink. His vital signs show blood pressure 147/75 but are otherwise normal. SKIN: Focused skin assessment warm/dry. The patient does have right leg cellulitis and is on Coumadin for this. This is followed at [facility] and he states they are going to do a reconstruction on his right leg. HEAD: Atraumatic. Normocephalic. EYES: Pupils equal and round. No scleral icterus. No injection or drainage. ENT: No nasal bleeding or discharge. Mucous membranes pink and moist. NECK: Trachea midline. No JVD. No neck tenderness is present. There is no posterior spinous process tenderness or deformity present on the neck. CARDIOVASCULAR: Regular rate and rhythm. No murmur appreciated. RESPIRATORY: No accessory muscle use. Clear to auscultation. Breath sounds equal bilaterally. GASTROINTESTINAL: Abdomen soft, non-tender, nondistended. Hepatic and splenic margins not palpable. MUSCULOSKELETAL: No obvious deformities. No clubbing. No cyanosis. No edema. No obvious deformities present on the left shoulder. He has diffuse tenderness anteriorly but no evidence of any bruising or skin erythema or laceration. Good capillary refill, pinprick sensation is present on the left hand. Normal radial pulses are felt on the right wrist. NEUROLOGICAL: Awake and alert. No obvious cranial nerve deficits. Motor grossly within normal limits. Normal speech. PSYCHIATRIC: Appropriate mood and affect; insight and judgment normal. Data Data Last Documented VS Vital Signs Date Time Temp Pulse Resp B/P (MAP) Pulse Ox O2 Delivery O2 Flow Rate FiO2 02/16/17 00:15 Room Air 02/15/17 23:38 98.1 86 20 147/75 (99) 98 Orders Orders Shoulder, Complete (>2vws) (02/16/17 01:17) [facility] Medical Decision Making Medical Screen Exam Complete: Yes Emergency Medical Condition: Yes Medical Record Reviewed: Yes Interpretation(s) X-rays of the left shoulder show no acute fracture or dislocation. Differential Diagnosis Fracture shoulder, dislocation shoulder, contusion shoulder Narrative Course The patient appears to have a contusion of the left shoulder. There is no external evidence of trauma but he is tender where he states he got hit by the falling golf cart. Diagnosis Primary Impression: Contusion of left shoulder Additional Instructions: Avoid heavy use of the left shoulder and given a chance to rest and heal up. This looks like a bruise to the muscles of your left shoulder. Follow-up with your primary care physician if the pain is persistent. Take plain Tylenol for pain. Med/Other Pt SpecificInfo: No Change to Meds Disposition: 01 DISCHARGE HOME Condition: Stable Jeff Wood MD Feb 16, 2017 01:16
--- NOTE | 2017-02-16 02:03 | RADRPT ---
EXAM DATE/TIME: 02/16/2017 01:23 [facility] COMPARISON: No previous studies available for comparison. INDICATIONS : Left shoulder pain after patient fell onto left side today MEDICAL HISTORY : None. SURGICAL HISTORY : None. ENCOUNTER: Initial ACUITY: 1 day PAIN SCORE: 10/10 LOCATION: Left entire shoulder FINDINGS: Multiple view examination of the left shoulder demonstrates no evidence of fracture or dislocation. The glenohumeral and acromioclavicular joints are maintained. There is normal range of motion betwee n internal and external rotation. Bony mineralization is normal. CONCLUSION: No acute fracture. Joselito Crockett MD on February 16, 2017 at 2:02 Board Certified Radiologist. This report was verified electronically.
[2017-02-16 02:15] VITALS: BP 140/84; PULSE 80; RESP 18; O2SAT 98
== END 2017-02-16 02:27 | disposition home or self-care (01) ==
LOC: PHED 22:32
DX: S40.012A Contusion of left shoulder, initial encounter (principal); W20.8XXA Other cause of strike by thrown, projected or falling object, initial encounter; Y92.512 Supermarket, store or market as the place of occurrence of the external cause
CPT/HCPCS: 73030; 99283

== ENCOUNTER 2017-04-04 02:52 | Inpatient (IN) | payer OTHER, MEDICARE ==
[~2017-04-04] VITALS: Ht 182.9 cm; Wt 93.0 kg
[~2017-04-04 02:52] MED LIST changes: -APIX5TAB PO; -ARIP1TAB11 PO; +COUM4TAB PO; -HALO5TAB PO; +LISI-519 PO; -LITH300C2 PO; -NEUR300C PO
[2017-04-04 03:01] VITALS: BP 134/83; PULSE 111; RESP 20; TEMP 98.1; O2SAT 97
[2017-04-04] MEDS ORDERED: SODIUM CHLORIDE 0.9% FLUSH 10 ML FLUSH IVF PRN (03:15)
--- NOTE | 2017-04-04 03:19 | PD ---
HPI Chief Complaint: right shoulder pain Time Seen by Provider: 03:00 Travel History International Travel<30 days: No Contact w/Intl Traveler<30days: No Traveled to known affect area: No History of Present Illness HPI The patient is a 61-year-old bipolar schizophrenic who complains of right shoulder pain for about 5 days. He denies any injury. He also has noticed swelling in the right forearm and, to a lesser extent, the right upper arm. He denies any fever. He does have a history of DVT, cellulitis of the left lower extremity. PFSH Past Medical History Hx Anticoagulant Therapy: Yes Bipolar Disorder: Yes Anxiety: Yes Depression: Yes Cancer: Yes (COLON CANCER 2003 HAD CHEMO FOR 1 YEAR) Cardiovascular Problems: Yes Chemotherapy: Yes (PAST IN 2003 FOR COLON CA) Diabetes: No Diminished Hearing: No Deep Vein Thrombosis: Yes Gastrointestinal Disorders: Yes (PER MEDICAL RECORD) Hepatitis: No Hiatal Hernia: No Hypertension: Yes Musculoskeletal: No (PER MEDICAL RECORD) Neurologic: Yes Psychiatric: Yes Respiratory: No (PER MEDICAL RECORD) Integumentary: Yes (CELLULITIS LOWER LEGS) Immunizations Current: Yes Thyroid Disease: No Past Surgical History Abdominal Surgery: Yes (COLON CANCER WITH BOWEL RESECTION AND CHEMO) Body Medical Devices: IVT FILTER PER MEDICAL RECORD Cardiac Surgery: No Ear Surgery: No Endocrine Surgery: No Eye Surgery: Yes (LEFT EYE PROSTHESIS) Genitourinary Surgery: Yes (VASECTOMY) Gynecologic Surgery: No Neurologic Surgery: No Oral Surgery: No Pacemaker: No Thoracic Surgery: No Other Surgery: Yes (2003 COLON resection, ivc filter placement) Social History Alcohol Use: No Tobacco Use: Yes (2-3 cigars per day ) Substance Use: No Allergies-Medications (Allergen,Severity, Reaction): Coded Allergies: No Known Allergies (Verified Adverse Reaction, Unknown, 04/04/17) Reported Meds & Prescriptions Reported Meds & Active Scripts Active [place] Carbonate 300 Mg Tab 300 Mg PO 1 PO AM, 2 PO HS Reported Eliquis (Apixaban) 2.5 Mg Tab 2.5 Mg PO BID Lisinopril 5 Mg Tab 5 Mg PO DAILY Review of Systems Except as stated in HPI: all other systems reviewed are Neg Physical Exam Narrative GENERAL: The patient is alert, oriented 3 but is delusional. His vital signs show pulse rate of 111 but the rest the vital signs are normal. SKIN: Focused skin assessment warm/dry. There is slight cellulitis of the right lower extremity. There appears to be slight cellulitis in the right forearm as well. There is an intertriginous rash on the right axilla, this area is not been cleaned for some time. HEAD: Atraumatic. Normocephalic. EYES: Pupils equal and round. No scleral icterus. No injection or drainage. ENT: No nasal bleeding or discharge. Mucous membranes pink and moist. NECK: Trachea midline. No JVD. CARDIOVASCULAR: Regular rate and rhythm. No murmur appreciated. RESPIRATORY: No accessory muscle use. Clear to auscultation. Breath sounds equal bilaterally. GASTROINTESTINAL: Abdomen soft, non-tender, nondistended. Hepatic and splenic margins not palpable. MUSCULOSKELETAL: No obvious deformities. No clubbing. No cyanosis. The right forearm shows 4+ edema and shows areas suspicious for cellulitis. The left arm is normal and the right leg has chronic cellulitis and edema. NEUROLOGICAL: Awake and alert. No obvious cranial nerve deficits. Motor grossly within normal limits. Normal speech. 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 Data Data Last Documented VS Vital Signs Date Time Temp Pulse Resp B/P (MAP) Pulse Ox O2 Delivery O2 Flow Rate FiO2 04/04/17 03:51 Room Air 04/04/17 03:01 98.1 111 20 134/83 (100) 97 Orders Orders Complete Blood Count With Diff (04/04/17 03:11) Comprehensive Metabolic Panel (04/04/17 03:11) Urinalysis - C+S If Indicated (04/04/17 03:11) Sodium Chloride 0.9% Flush (Ns Flush) (04/04/17 03:15) Hastings (Li) (04/04/17 03:11) Prothrombin Time / Inr (Pt) (04/04/17 03:19) Act Partial Throm Time (Ptt) (04/04/17 03:19) Us Arm Venous Doppler (04/04/17 03:20) Shoulder, Limited(2vws) (04/04/17 03:10) Splint Or Brace Apply/Monitor (04/04/17 04:57) Sling Cradle Arm (04/04/17 ) Labs Laboratory Tests Test 04/04/17 03:15 White Blood Count 8.3 TH/MM3 Red Blood Count 3.80 MIL/MM3 Hemoglobin 11.1 GM/DL Hematocrit 33.5 % Mean Corpuscular Volume 88.1 FL Mean Corpuscular Hemoglobin 29.1 PG Mean Corpuscular Hemoglobin Concent 33.1 % Red Cell Distribution Width 14.0 % Platelet Count 469 TH/MM3 Mean Platelet Volume 7.4 FL Neutrophils (%) (Auto) 68.0 % Lymphocytes (%) (Auto) 20.1 % Monocytes (%) (Auto) 9.5 % Eosinophils (%) (Auto) 1.8 % Basophils (%) (Auto) 0.6 % Neutrophils # (Auto) 5.7 TH/MM3 Lymphocytes # (Auto) 1.7 TH/MM3 Monocytes # (Auto) 0.8 TH/MM3 Eosinophils # (Auto) 0.1 TH/MM3 Basophils # (Auto) 0.0 TH/MM3 CBC Comment DIFF FINAL Differential Comment Prothrombin Time 15.2 SEC Prothromb Time International Ratio 1.5 RATIO Activated Partial Thromboplast Time 29.5 SEC Blood Urea Nitrogen 11 MG/DL Creatinine 0.64 MG/DL Random Glucose 104 MG/DL Total Protein 8.9 GM/DL Albumin 2.3 GM/DL Calcium Level 8.6 MG/DL Alkaline Phosphatase 105 U/L Aspartate Amino Transf (AST/SGOT) 27 U/L Alanine Aminotransferase (ALT/SGPT) 26 U/L Total Bilirubin 0.4 MG/DL Sodium Level 131 MEQ/L Potassium Level 4.1 MEQ/L Chloride Level 98 MEQ/L Carbon Dioxide Level 24.6 MEQ/L Anion Gap 8 MEQ/L Estimat Glomerular Filtration Rate 128 ML/MIN Hastings Level LESS THAN 0.1 MEQ/L MDM Medical Decision Making Medical Screen Exam Complete: Yes Emergency Medical Condition: Yes Medical Record Reviewed: Yes Interpretation(s) X-rays of the right shoulder show only degenerative change at the glenohumeral joint. They do not show any fracture or dislocation. Differential Diagnosis Cellulitis, DVT, electrolyte disorder, anemia, fracture shoulder, dislocation shoulder Narrative Course The patient has cellulitis of the right upper extremity. The right upper extremity cellulitis/edema is apparently new. He does have chronic erythema/ edema of the right lower extremity. The patient is unreliable and cannot be counted on taking his medications correctly at home. Physician Communication Physician Communication I discussed the patient with , the patient will be admitted to her. Diagnosis Primary Impression: Cellulitis of right upper extremity Additional Impressions: Cellulitis of right lower extremity Schizophrenia, paranoid, chronic bipolar disorder Admitting Information Admitting Physician Requests: Admit Jeff Wood MD Apr 04, 2017 03:19
[2017-04-04 03:39] LABS: AUTOMATED NEUTROPHIL # 5.7 TH/MM3 (1.8-7.7); BASOPHIL % 0.6 % (0.0-2.0); EOSINOPHIL # 0.1 TH/MM3 (0-0.4); EOSINOPHIL % 1.8 % (0.0-4.0); HEMATOCRIT 33.5 % (39.0-51.0); HEMO FLAGS DIFF FINAL; LYMPH % 20.1 % (9.0-44.0); LYMPHOCYTE # 1.7 TH/MM3 (1.0-4.8); MEAN CELL VOLUME 88.1 FL (80.0-100.0); MEAN CORPUSCULAR HEMOGLOBIN 29.1 PG (27.0-34.0); MEAN CORPUSCULAR HGB CONC 33.1 % (32.0-36.0); MONO % 9.5 % (0.0-8.0); PLATELET COUNT 469 TH/MM3 (150-450); WHITE BLOOD COUNT 8.3 TH/MM3 (4.0-11.0)
[2017-04-04] MEDS ORDERED: APIX2.5T PO (03:49)
[2017-04-04 04:11] LABS: CHLORIDE 98 MEQ/L (98-107); POTASSIUM 4.1 MEQ/L (3.5-5.1); SODIUM (NA) 131 MEQ/L (136-145)
[2017-04-04 04:15] LABS: ANION GAP 8 MEQ/L (5-15); APTT (PATIENT) 29.5 SEC (24.3-30.1); BICARBONATE 24.6 MEQ/L (21.0-32.0); BLOOD UREA NITROGEN 11 MG/DL (7-18); INTERNATIONAL NORMALIZED RATIO 1.5 RATIO; PROTHROMBIN TIME - PATIENT 15.2 SEC (9.8-11.6)
[2017-04-04 04:18] LABS: ALT (GPT) 26 U/L (12-78); AST (GOT) 27 U/L (15-37); GLOMERULAR FILTRATION RATE 128 ML/MIN (>89)
--- NOTE | 2017-04-04 04:18 | RADRPT ---
EXAM DATE/TIME: 04/04/2017 03:24 [facility] COMPARISON: No previous studies available for comparison. INDICATIONS : Right shoulder pain from unknown injury. MEDICAL HISTORY : None. SURGICAL HISTORY : None. ENCOUNTER: Initial ACUITY: 1 day PAIN SCORE: 10/10 LOCATION: Right shoulder. FINDINGS: Two view examination of the right shoulder demonstrates no evidence of fracture or dislocation. The acromioclavicular joints is maintained. Degenerative changes noted in the glenohumeral joint with charles nt space loss. Bony mineralization is normal. CONCLUSION: Degenerative changes in the glenohumeral joint. Hector Mancini MD on April 04, 2017 at 4:16 Board Certified Radiologist. This report was verified electronically.
[2017-04-04 04:20] LABS: TOTAL BILIRUBIN ADULT 0.4 MG/DL (0.2-1.0)
[2017-04-04 04:21] LABS: ALKALINE PHOSPHATASE 105 U/L (45-117)
--- NOTE | 2017-04-04 05:25 | RADRPT ---
EXAM DATE/TIME: 04/04/2017 04:31 [facility] COMPARISON: No previous studies available for comparison. INDICATIONS : Right arm swelling. MEDICAL HISTORY : Hypertension. DVT. Cardiac disorder. SURGICAL HISTORY : IVC filter and removal. ENCOUNTER: Initial ACUITY: 1 day PAIN SCORE: 10/10 LOCATION: Right arm. FINDINGS: There is spontaneous flow documented in the brachial, basilic, cephalic, axillary, and subclavian vei ns. The vessels are compressible and augmentation response is documented. No filling defects are se en. The flow is phasic with respiration. Direction of flow in the jugular vein is caudal. The ulna r vein could not be visualized or evaluated. CONCLUSION: Negative exam no evidence of deep venous thrombosis. Hector Mancini MD on April 04, 2017 at 5:23 Board Certified Radiologist. This report was verified electronically.
[2017-04-04] MEDS ORDERED: SODIUM CHLORIDE 0.9% FLUSH 10 ML FLUSH IV FLUSH PRN (05:30)
[2017-04-04] MEDS ORDERED: NALOXONE HCL 0.4 MG/ML AMP IV PUSH PRN (05:30)
[2017-04-04] MEDS ORDERED: LEVOFLOXACIN 750 MG PREMIX INJ 150 ML IV SCH (06:00)
[2017-04-04 08:00] VITALS: BP 132/81; PULSE 90; RESP 14; TEMP 95.7; O2SAT 96
[2017-04-04] MEDS: SODIUM CHLORIDE 0.9% FLUSH 10 ML FLUSH IV FLUSH SCH ×2 (09:00→20:28)
[2017-04-04] MEDS ORDERED: ACETAMINOPHEN 325 MG TAB PO PRN (09:45)
[2017-04-04] MEDS ORDERED: HALOPERIDOL LACTATE 5 MG/ML AMP IM ONE (10:30)
[2017-04-04] MEDS ORDERED: HYDROmorphone HCL PF 1 MG/ML VIAL IV PUSH ONE (11:30)
[2017-04-04] MEDS ORDERED: HALOPERIDOL LACTATE 5 MG/ML AMP IM PRN ×2 (11:30→14:30)
[2017-04-04] MEDS ORDERED: SODIUM CHLORID 0.9% 500 ML INJ 500 ML IV ONE ×2 (11:30)
[2017-04-04 12:00] VITALS: BP 111/74; PULSE 93; RESP 20; TEMP 98; O2SAT 96
--- NOTE | 2017-04-04 13:20 | HHI.HP ---
[facility] Primary Care Physician Kari Schulz Do, MD Admission Diagnosis cellulitis right upper extremity Diagnoses: (1) Right shoulder pain (2) Cellulitis of right upper extremity Diagnosis: Principal (3) Cellulitis of right lower extremity Diagnosis: Secondary (4) Bipolar disorder, current episode mixed, severe, with psychotic features Diagnosis: Principal (5) Schizophrenia, paranoid, chronic Diagnosis: Secondary Chief Complaint: Right shoulder pain Travel History International Travel<30 Days: No Contact w/Intl Traveler <30 Da: No Traveled to Known Affected Are: No History of Present Illness Written by Fritz Wood, acting as scribe for Dr. Acosta on 04/04/17 at 12 :52. 61 year-old male with known history of hypertension, DVT of the right lower extremity, chronic right lower extremity cellulitis, paranoid schizophrenia, bipolar with history psychosis who presented to the hospital because of right shoulder pain. Patient indicates that he is had right shoulder pain for approximately 5 days. States that he is unable to move it, he is unable to use his right hand, he states that his arm is better if he keeps it straight. Patient had workup done with ultrasound of the upper extremity as well as x-ray of the right upper extremity which does not indicate any acute abnormality. However the patient is very resistant to examination. He is not allowing extension or movement of the arm for complete evaluation. Unfortunately, the shoulder that is not the main concern at this time, but his underlying psychiatric condition appears to be the most concerning. One is able to smell the patient outside of the room in the hallway because of he is unkept, disheveled and by his appearance unable to take care of himself. Patient is covered in what he states is diarrhea, dirt. He indicates that he had diarrhea that covered his legs and feet and because of his shoulder pain he is unable to bend over or wash himself with one arm. 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 Upon review medical records it does appears that the patient has had a plethora of admissions for psychiatric issues to include schizophrenia, psychosis, bipolar disorder. Most recent admission was 2 months ago when he was treated by psychiatry with Abilify and lithium. Patient's home medication records do not indicate that he has been taking the Abilify and his lithium level is less than 0.1 which would indicate that patient is not taking his medications. Because of his underlying psychiatric illness is difficult to obtain any information from the patient to include medical history, social history, family history, surgical history, it is difficult to examine the patient due to his resistance. Information was mainly taken from medical records, nursing staff. Review of Systems Musculoskeletal: COMPLAINS OF: Joint pain Except as stated in HPI: all other systems reviewed are Neg Past Family Social History Past Medical History Schizophrenia, paranoid Bipolar disorder with recurrent episodes of psychosis History of colon cancer History DVT of the right lower extremity Hypertension Past Surgical History Patient had partial colectomy for colon cancer in 2003 IVC filter placement in April 2015. Reported Medications Reported Meds & Active Scripts Active [place] Carbonate 300 Mg Tab 300 Mg PO 1 PO AM, 2 PO HS Reported Eliquis (Apixaban) 2.5 Mg Tab 2.5 Mg PO BID Lisinopril 5 Mg Tab 5 Mg PO DAILY Allergies: Coded Allergies: No Known Allergies (Verified Allergy, Unknown, 04/04/17) Family History Father from stroke at age 63 and Mother from "natural causes "at age 88 Social History Patient reports smoking one pack per week of cigarettes for the past 7 years Denies alcohol Denies any illicit drugs. Physical Exam Vital Signs Vital Signs Date Time Temp Pulse Resp B/P (MAP) Pulse Ox O2 Delivery O2 Flow Rate FiO2 04/04/17 08:00 95.7 90 14 132/81 (98) 96 04/04/17 06:57 04/04/17 03:51 Room Air 04/04/17 03:01 98.1 111 20 134/83 (100) 97 Physical Exam GENERAL: disheveled appearing middle age white male lying awake in bed in NAD HE: Head is normocephalic without any lesions or masses noted. Facial features are symmetric. Eyes: Extraocular muscles are intact. Conjunctivae were clear. Oropharyngeal: Pharynx without any erythema edema. Tongue is midline without deviation. Buccal mucosa is moist without any masses or lesions CARDIAC: Regular rhythm, regular rate. S1/S2 are heard. No murmurs gallops or rubs. LUNGS: Clear to auscultation bilaterally. No wheeze, rhonchi or rales. No use of accessory muscles on inspiration or expiration. ABDOMEN: Soft, nontender. Nondistended. Bowel sounds heard in all 4 quadrants. No organomegaly or masses. Negative rebound, negative guarding EXTREMITIES: Patient with erythema of his right lower extremity without any wounds, exudates or purulence. Patient's feet are covered in a brown substance in which he states is stool which he had diarrhea and physically unable to wash his own feet. 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 NEUROLOGY: No facial droop, no slurred speech, no unilateral lid lag. RIGHT UPPER EXTREMITY: Patient is in a sling at this time. He was unable to examine the arm completely due to the patient yelling out in pain and states that he cannot move his arm. Indicates that he should not be touching him unless we are orthopedic doctor. He has golf ball size area of induration over his the lateral aspect of his mid to upper shoulder that is TTP with no obvious superimposed erythema. Patient does have a gauze with some pink/white cream applied to his axilla and he is belligerently refusing to let us lift the arm. Laboratory Laboratory Tests Test 04/04/17 03:15 White Blood Count 8.3 Red Blood Count 3.80 Hemoglobin 11.1 Hematocrit 33.5 Mean Corpuscular Volume 88.1 Mean Corpuscular Hemoglobin 29.1 Mean Corpuscular Hemoglobin Concent 33.1 Red Cell Distribution Width 14.0 Platelet Count 469 Mean Platelet Volume 7.4 Neutrophils (%) (Auto) 68.0 Lymphocytes (%) (Auto) 20.1 Monocytes (%) (Auto) 9.5 Eosinophils (%) (Auto) 1.8 Basophils (%) (Auto) 0.6 Neutrophils # (Auto) 5.7 Lymphocytes # (Auto) 1.7 Monocytes # (Auto) 0.8 Eosinophils # (Auto) 0.1 Basophils # (Auto) 0.0 CBC Comment DIFF FINAL Differential Comment Prothrombin Time 15.2 Prothromb Time International Ratio 1.5 Activated Partial Thromboplast Time 29.5 Blood Urea Nitrogen 11 Creatinine 0.64 Random Glucose 104 Total Protein 8.9 Albumin 2.3 Calcium Level 8.6 Alkaline Phosphatase 105 Aspartate Amino Transf (AST/SGOT) 27 Alanine Aminotransferase (ALT/SGPT) 26 Total Bilirubin 0.4 Sodium Level 131 Potassium Level 4.1 Chloride Level 98 Carbon Dioxide Level 24.6 Anion Gap 8 Estimat Glomerular Filtration Rate 128 [place]us Level LESS THAN 0.1 Result Diagram: 04/04/1731404/04/17314 Imaging Last Impressions Upper Extremity Ultrasound 04/04/17319 Signed Impressions: Service Date/Time: Tuesday, April 04, 2017 04:31 - CONCLUSION: Negative exam no evidence of deep venous thrombosis. Hector Mancini MD Shoulder X-Ray 04/04/17309 Signed Impressions: Service Date/Time: Tuesday, April 04, 2017 03:24 - CONCLUSION: Degenerative changes in the glenohumeral joint. Hector Mancini MD Capkaren VTE Risk Assessment Caprini VTE Risk Assessment: Mod/High Risk (score >= 2) Caprini Risk Assessment Model Point Value = 1 Point Value = 2 Point Value = 3 Point Value = 5 Age 41-60 Minor surgery BMI > 25 kg/m2 Swollen legs Varicose veins or History of unexplained or recurrent spontaneous Oral contraceptives or hormone replacement Sepsis (< 1 month) Serious lung disease, including pneumonia (< 1 month) Abnormal pulmonary function Acute myocardial infarction Congestive heart failure (< 1 month) History of inflammatory bowel disease Medical patient at bed rest Age 61-74 Arthroscopic surgery Major open surgery (> 45 min) Laparoscopic surgery (> 45 min) Malignancy Confined to bed (> 72 hours) Immobilizing plaster cast Central venous access Age >= 75 History of VTE Family history of VTE Factor V Leiden Prothrombin [id number] Lupus anticoagulant Anticardiolipin antibodies Elevated serum homocysteine Heparin-induced thrombocytopenia Other congenital or acquired thrombophilia Stroke (< 1 month) Elective arthroplasty Hip, pelvis, or leg fracture Acute spinal cord injury (< 1 month) Prophylaxis Regimen Total Risk Factor Score Risk Level Prophylaxis Regimen 0-1 Low Early ambulation 2 Moderate Order ONE of the following: *Sequential Compression Device (SCD) *Heparin 5000 units SQ BID 3-4 Higher Order ONE of the following medications: *Heparin 5000 units SQ TID *Enoxaparin/Lovenox 40 mg SQ daily (WT < 150 kg, CrCl > 30 mL/min) *Enoxaparin/Lovenox 30 mg SQ daily (WT < 150 kg, CrCl > 10-29 mL/min) *Enoxaparin/Lovenox 30 mg SQ BID (WT < 150 kg, CrCl > 30 mL/min) AND/OR *Sequential Compression Device (SCD) 5 or more Highest Order ONE of the following medications: *Heparin 5000 units SQ TID (Preferred with Epidurals) *Enoxaparin/Lovenox 40 mg SQ daily (WT < 150 kg, CrCl > 30 mL/min) *Enoxaparin/Lovenox 30 mg SQ daily (WT < 150 kg, CrCl > 10-29 mL/min) *Enoxaparin/Lovenox 30 mg SQ BID (WT < 150 kg, CrCl > 30 mL/min) AND *Sequential Compression Device (SCD) Assessment and Plan Assessment and Plan 61 year-old male who originally presented to hospital because of right shoulder pain. 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 Possible underlying abscess -CT of the forearm and humerus has been ordered -Wound care has been consulted -zosyn and vanc Possible right LE cellulitis - abx as above Hypertension -Blood pressure stable this time -Home medications have been continued History DVT -Eliquis held after 1x dose has been given here DVT prevention -SCDs, first dose of eliquis given (for past hx of DVT), will hold given possible surgical intervention. This note was transcribed by dioni Wood. Gorge Wolff, personally performed the history, physical exam, and medical decision making; and confirmed the accuracy of the information in the transcribed note. Authenticated by Gorge Acosta on 04/04/17 at 8:35 pm. Addendum: After repetitive multiple attempts and medication restraining with Haldol, patient was finally called enough to stay still and cooperate for CT imaging. (Frequent Haldol was advised by psychiatry to Dr. Acosta if needed - will also states that patient cannot refuse treatment given that his medical decision making capacity has been compromised). CT has returned with radiology read indicating abscess and biceps with surrounding cellulitis down to the elbow. Gen surgery consult has been placed. Gen surg has informed me that ortho is appropriate consult, ortho consult placed and transferring to Main given possible surg intervention along w/ anticipated Medpsych placement. Holding eliquis, INR repeat ordered in AM. Diet NPO after midnight. Blood cultures ordered. EKG indepdentely reviewed by Dr. Acosta with QTc less than 500 with NSR. Physician Certification 2 Midnight Certification Type: Admission for Inpatient Services Order for Inpatient Services The services are ordered in accordance with Medicare regulations or non- Medicare payer requirements, as applicable. In the case of services not specified as inpatient-only, they are appropriately provided as inpatient services in accordance with the 2-midnight benchmark. Estimated LOS (days): 3 days is the estimated time the patient will need to remain in the hospital, assuming treatment plan goals are met and no additional complications. Post-Hospital Plan: Not yet determined Fritz Wood Apr 04, 2017 13:20 Gorge Acosta MD Apr 04, 2017 16:20
[2017-04-04] MEDS ORDERED: IOHEXOL 350 MG/ML 10 ML VIAL (for RAD DIAG) IVCONTRAST ONE (14:25)
--- NOTE | 2017-04-04 14:41 | PD.PSY.CON ---
Provisional Diagnosis Admission Date Apr 04, 2017 at 11:13 [place] I. Bipolar disorder type I, manic episode with psychosis vs schizoaffective disorder [place] II. deferred [place] III. DVT, hypertension, cellulitis [place] IV. Noncompliant with his psychotropics [place] V. 35 History of Present Illness Service Psychiatry Consult Requested By Medical team Reason for Consult Psychosis Primary Care Physician Kari Schulz Do, MD HPI The patient is a 61 year-old man, domiciled alone in [place], single, retired, with documented psychiatric history of bipolar disorder, schizoaffective disorder, he was hospitalized here at [facility] under my care in December 2016, the moment he was acutely manic and he responded adequately to lithium 600 mg twice a day and Abilify 10 mg, he was discharged by [place] [address], he denies previous suicidal attempts, he has medical history of hypertension, DVT of the right lower extremity, chronic right lower extremity cellulitis, who presented to the hospital because of right shoulder pain. As per previous documentation : "Patient indicates that he is had right shoulder pain for approximately 5 days. States that he is unable to move it, he is unable to use his right hand, he states that his arm is better if he keeps it straight. Patient had workup done with ultrasound of the upper extremity as well as x-ray of the right upper extremity which does not indicate any acute abnormality. However the patient is very resistant to examination. He is not allowing extension or movement of the arm for complete evaluation. Unfortunately, the shoulder that is not the main concern at this time, but his underlying psychiatric condition appears to be the most concerning. One is able to smell the patient outside of the room in the hallway because of he is unkept, disheveled and by his appearance unable to take care of himself. Patient is covered in what he states is diarrhea, dirt. He indicates that he had diarrhea that covered his legs and feet and because of his shoulder pain he is unable to bend over or wash himself with one arm. 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 Upon review medical records it does appears that the patient has had a plethora of admissions for psychiatric issues to include schizophrenia, psychosis, bipolar disorder. Most recent admission was 2 months ago when he was treated by psychiatry with Abilify and lithium. Patient's home medication records do not indicate that he has been taking the Abilify and his lithium level is less than 0.1 which would indicate that patient is not taking his medications. Because of his underlying psychiatric illness is difficult to obtain any information from the patient to include medical history, social history, family history, surgical history, it is difficult to examine the patient due to his resistance. Information was mainly taken from medical records, nursing staff". On psychiatric evaluation today the patient is very disorganized, he immediately recognized me from his previous psychiatric admission, and he is states "please don't Rojas act me, I have been taking my lithium, covered by feces, but I can explain you and you will understands". Patient is requesting to be discharged. 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 As the patient has been refusing to have a CT of his shoulder and has been agitated, hyperactive, hyperverbal and very disorganized, he finally was medicated with 5 mg of Haldol IM in order to do the test. As per conversation with PA in charge and also nurse in charge the patient has not been making any sense. He has been talking to himself, with incoherent and pressured speech. Review of Systems Constitutional: DENIES: Diaphoretic episodes, Fatigue, Fever, Weight gain, Weight loss, Chills, Dizziness, Change in appetite, Night Sweats Endocrine: DENIES: Heat/cold intolerance, Polydipsia, Polyuria, Polyphagia Eyes: DENIES: Blurred vision, Diplopia, Eye inflammation, Eye pain, Vision loss , Photosensitivity, Double Vision Ears, nose, mouth, throat: DENIES: Tinnitus, Hearing loss, Vertigo, Nasal discharge, Oral lesions, Throat pain, Hoarseness, Ear Pain, Running Nose, Epistaxis, Sinus Pain, Toothache, Odynophagia Respiratory: DENIES: Apneas, Cough, Snoring, Wheezing, Hemoptysis, Sputum production, Shortness of breath Cardiovascular: DENIES: Chest pain, Palpitations, Syncope, Dyspnea on Exertion , PND, Lower Extremity Edema, Orthopnea, Claudication Gastrointestinal: DENIES: Abdominal pain, Black stools, Bloody stools, Constipation, Diarrhea, Nausea, Vomiting, Difficulty Swallowing, Anorexia Genitourinary: DENIES: Sexual dysfunction, Urinary frequency, Urinary incontinence, Urgency, Hematuria, Dysuria, Nocturia, Penile Discharge, Testicular Pain, Testicular Swelling Musculoskeletal: DENIES: Joint pain, Muscle aches, Stiffness, Joint Swelling, Back pain, Neck pain Integumentary: DENIES: Abnormal pigmentation, Nail changes, Pruritus, Rash Immunologic/allergic: DENIES: Eczema, Urticaria Neurologic: DENIES: Abnormal gait, Headache, Localized weakness, Paresthesias, Seizures, Speech Problems, Tremor, Poor Balance Psychiatric: COMPLAINS OF: Mood changes, Agitation, Delusions, DENIES: Anxiety , Confusion, Depression, Hallucinations, Suicidal Ideation, Homicidal Ideation Past Family Social History Coded Allergies: No Known Allergies (Verified Allergy, Unknown, 04/04/17) Active Scripts [place] Carbonate ([place] Carbonate) 300 Mg Tab, 300 MG PO 1 po Am, 2 po hs for health, #90 TAB 0 Refills Prov:Toribio Dejesus MD 01/02/17 Reported Medications Apixaban (Eliquis) 2.5 Mg Tab, 2.5 MG PO BID for Blood Clot Prevention, TAB 0 Refills 04/04/17 Lisinopril (Lisinopril) 5 Mg Tab, 5 MG PO DAILY for Blood Pressure Management, # 30 TAB 0 Refills 02/16/17 Discontinued Reported Medications Warfarin (Coumadin) 4 Mg Tab, 4 MG PO DAILY for Prevent Blood Clot, #30 TAB 0 Refills 02/16/17 Current Medications Medications (Trade) Dose Ordered Sig/Cb Route Start Time Stop Time Status Last Admin (NS Flush) 2 ml UNSCH PRN IV FLUSH 04/04/17 05:30 (NS Flush) 2 ml BID IV FLUSH 04/04/17 09:00 04/04/17 09:00 (Narcan Inj) 0.4 mg UNSCH PRN IV PUSH 04/04/17 05:30 Levofloxacin/ Dextrose 150 ml @ 100 mls/hr Q24H IV 04/04/17 06:00 04/04/17 06:00 (Tylenol) 650 mg Q4H PRN PO 04/04/17 09:45 (Lithotabs) 300 mg DAILY@1600 PO 04/04/17 16:00 (Eliquis) 2.5 mg BID PO 04/04/17 21:00 (Prinivil) 5 mg DAILY PO 04/05/17 09:00 Family Psych History patient denies family psychiatric history Social History Patient was born and raised in [place], he lives alone in [place], he is unemployed, supported by Social Security, his highest level of education is high school Patient's Strengths (min. 2) Verbal communication Physical Exam No tremors, no EPS, no stiffness present Vital Signs Vital Signs Date Time Temp Pulse Resp B/P (MAP) Pulse Ox O2 Delivery O2 Flow Rate FiO2 04/04/17 12:00 98.0 93 20 111/74 (86) 96 04/04/17 03:51 Room Air I/O 04/04/17 04/04/17 04/05/17 08:00 16:00 00:00 Intake Total 480 ml 462 ml Balance 480 ml 462 ml Lab Results Test 04/04/17 03:15 White Blood Count 8.3 TH/MM3 Red Blood Count 3.80 MIL/MM3 Hemoglobin 11.1 GM/DL Hematocrit 33.5 % Mean Corpuscular Volume 88.1 FL Mean Corpuscular Hemoglobin 29.1 PG Mean Corpuscular Hemoglobin Concent 33.1 % Red Cell Distribution Width 14.0 % Platelet Count 469 TH/MM3 Mean Platelet Volume 7.4 FL Neutrophils (%) (Auto) 68.0 % Lymphocytes (%) (Auto) 20.1 % Monocytes (%) (Auto) 9.5 % Eosinophils (%) (Auto) 1.8 % Basophils (%) (Auto) 0.6 % Neutrophils # (Auto) 5.7 TH/MM3 Lymphocytes # (Auto) 1.7 TH/MM3 Monocytes # (Auto) 0.8 TH/MM3 Eosinophils # (Auto) 0.1 TH/MM3 Basophils # (Auto) 0.0 TH/MM3 CBC Comment DIFF FINAL Differential Comment Prothrombin Time 15.2 SEC Prothromb Time International Ratio 1.5 RATIO Activated Partial Thromboplast Time 29.5 SEC Blood Urea Nitrogen 11 MG/DL Creatinine 0.64 MG/DL Random Glucose 104 MG/DL Total Protein 8.9 GM/DL Albumin 2.3 GM/DL Calcium Level 8.6 MG/DL Alkaline Phosphatase 105 U/L Aspartate Amino Transf (AST/SGOT) 27 U/L Alanine Aminotransferase (ALT/SGPT) 26 U/L Total Bilirubin 0.4 MG/DL Sodium Level 131 MEQ/L Potassium Level 4.1 MEQ/L Chloride Level 98 MEQ/L Carbon Dioxide Level 24.6 MEQ/L Anion Gap 8 MEQ/L Estimat Glomerular Filtration Rate 128 ML/MIN [place] Level LESS THAN 0.1 MEQ/L Mental Status Examination Appearance: Dirty, Disheveled, Malodorous Consciousness: Alert Orientation: x4 Motor Activity: Normal gait Speech: Pressured, Incoherent Language: Adequate Fund of Knowledge: Adequate Attention and Concentration: Adequate Memory: Unremarkable Mood: Angry, Manic Affect: Labile Thought Process & Associations: Loose associations, Disorganized, Tangential Thought Content: Bizarre thinking, Racing thoughts, Preoccupations, Delusional Hallucination Type: None Delusion Type: Paranoid, Other (delusions of grandiosity) Suicidal Ideation: No Suicidal Plan: No Suicidal Intention: No Homicidal Ideation: No Homicidal Plan: No Homicidal Intention: No Insight: Poor Judgment: Poor Assessment & Plan Problem List: (1) Bipolar disorder, current episode mixed, severe, with psychotic features ICD Codes: F31.64 - Bipolar disorder, current episode mixed, severe, with psychotic features Assessment & Plan: Patient is acutely manic/psychotic in the context of non- compliance with medications. He is very disorganized, talkative, with marked pressured speech, tangentiality, flight of ideas, loosening of associations, grandiosity or delusions and paranoia. His lithium level were less than 0.1 which proved that the patient was not compliant with medications. As per revision of documentation the patient has been self-neglecting, not taking care of himself, not taking his medical medications either, and living in deprecatory conditions. Patient needs psychiatric hospitalization for stabilization and safety. Will restart [place] 300 bid for sergio, Abilify 5 hs for psychosis and mood stabilization, Haldol 5 mg im q/8 PRN agitation and aggressive behavior. Also will order Clonazepam 0.5 mg bid for restlessness and hyperactivity. Order EKG for QTC baseline. Rojas act in place. Patient will be transferred to med psych. Case was discussed with primary medical team. Assessment & Plan Estimated LOS: Trent Conner MD Apr 04, 2017 14:41
--- NOTE | 2017-04-04 15:34 | RADRPT ---
EXAM DATE/TIME: 04/04/2017 14:20 [facility] COMPARISON: No previous studies available for comparison. INDICATIONS : Right shoulder, arm and forearm pain. Evaluate for cellulitis. IV CONTRAST: 85 cc Omnipaque 350 (iohexol) IV ; Cumulative dose for multiple exams. RADIATION DOSE: 13.86 CTDIvol (mGy) ; Combined studies MEDICAL HISTORY : Cardiovascular disease. Deep venous thrombosis. Carcinoma, colon.Hypertension. SURGICAL HISTORY : Colon resection. ENCOUNTER: Initial ACUITY: 4 - 6 days PAIN SCALE: 10/10 LOCATION: Right arm TECHNIQUE: Volumetric scanning of the humerus was performed. Using automated exposure control and adjustment of the mA and/or kV according to patient size, radiation dose was kept as low as reasonably achievable to obtain optimal diagnostic quality images. DICOM format image data is available electronically for review and comparison. FINDINGS: There is a 7.2 x 2.5 cm fluid collection involving the biceps muscle characteristic of abscess. More proximally there is also a second area of phlegmon with possible early access formation at the level of the bicipital groove measuring 3.2 x 1.8 CM. No joint effusion is identified. There is no bony michael truction or periosteal reaction to suggest osteomyelitis. CONCLUSION: 1. Findings characteristic of multilocular abscess involving the biceps muscle as described above wit hout evidence of osteomyelitis Wyatt Alcala MD on April 04, 2017 at 15:22 Board Certified Radiologist. This report was verified electronically.
--- NOTE | 2017-04-04 15:38 | RADRPT ---
EXAM DATE/TIME: 04/04/2017 14:20 [facility] COMPARISON: No previous studies available for comparison. INDICATIONS : Right shoulder, arm and forearm pain. Evaluate for cellulitis. IV CONTRAST: 85 cc Omnipaque 350 (iohexol) IV ; Cumulative dose for multiple exams. RADIATION DOSE: 13.86 CTDIvol (mGy) ; Combined studies MEDICAL HISTORY : Carcinoma, colon. Deep venous thrombosis. Cardiovascular diseaseHypertension. SURGICAL HISTORY : Colon resection. ENCOUNTER: Initial ACUITY: 4 - 6 days PAIN SCALE: 10/10 LOCATION: Right arm TECHNIQUE: Volumetric scanning of the forearm was performed. Using automated exposure control and adjustment of the mA and/or kV according to patient size, radiation dose was kept as low as reasonably achievable to obtain optimal diagnostic quality images. DICOM format image data is available electronically fo r review and comparison. FINDINGS: There is subcutaneous edema characteristic of cellulitis involving the distal humerus in the region o f the elbow but no evidence of abscess. No joint effusion is identified. There is no bony destruction or periosteal reaction to suggest osteomyelitis. CONCLUSION: 1. Findings of cellulitis at the level of the elbow but no evidence of abscess or osteomyelitis Wyatt Alcala MD on April 04, 2017 at 15:33 Board Certified Radiologist. This report was verified electronically.
[2017-04-04 16:00] VITALS: BP 142/82; PULSE 85; RESP 20; TEMP 97.2; O2SAT 97
[2017-04-04] MEDS ORDERED: Vancomycin Consult Pharmacy 1 EA OTHER SCH (16:00)
[2017-04-04] MEDS ORDERED: LITHIUM CARBONATE 300 MG TAB PO SCH (16:00)
[2017-04-04] MEDS ORDERED: VANCOMYCIN INJ 2,000 MG in SODIUM CHLORID 0.9% 500 ML INJ 500 ML IV ONE (17:00)
[2017-04-04] MEDS: PIPERACIL-TAZO 3.375 GM PREMIX 50 ML IV SCH (17:09)
--- NOTE | 2017-04-04 18:41 | PD.ORT.PN ---
Subjective Subjective Remarks I have reviewed the CT and studies. The patient's WBC is normal. There is no left shift. He has a coagulopathy with an INR of 1.5. Records indicate he is on Plavix. Objective Vitals Vital Signs Date Time Temp Pulse Resp B/P (MAP) Pulse Ox O2 Delivery O2 Flow Rate FiO2 04/04/17 16:00 97.2 85 20 142/82 (102) 97 04/04/17 12:00 98.0 93 20 111/74 (86) 96 04/04/17 08:00 95.7 90 14 132/81 (98) 96 04/04/17 06:57 04/04/17 03:51 Room Air 04/04/17 03:01 98.1 111 20 134/83 (100) 97 I/O 04/03/17 04/03/17 04/03/17 04/04/17 04/04/17 04/04/17 07:00 15:00 23:00 07:00 15:00 23:00 Intake Total 942 ml 1650 ml Balance 942 ml 1650 ml Intake Oral 942 ml IV Total 1650 ml # Voids 1 # Bowel Movements 3 Result Diagram: 04/04/17 0315 04/04/17 0315 Other Results Laboratory Tests Test 04/04/17 03:15 Prothromb Time International Ratio 1.5 RATIO Prothrombin Time 15.2 SEC (9.8-11.6) Imaging Last 24 hours Impressions Upper Extremity Ultrasound 04/04/17 0320 Signed Impressions: Service Date/Time: Tuesday, April 04, 2017 04:31 - CONCLUSION: Negative exam no evidence of deep venous thrombosis. Hector Mancini MD Shoulder X-Ray 04/04/17 0310 Signed Impressions: Service Date/Time: Tuesday, April 04, 2017 03:24 - CONCLUSION: Degenerative changes in the glenohumeral joint. Hector Mancini MD Upper Extremity CT 04/04/17 0000 Signed Impressions: Service Date/Time: Tuesday, April 04, 2017 14:20 - CONCLUSION: 1. Findings characteristic of multilocular abscess involving the biceps muscle as described above without evidence of osteomyelitis Wyatt Alcala MD Upper Extremity CT 04/04/17 0000 Signed Impressions: Service Date/Time: Tuesday, April 04, 2017 14:20 - CONCLUSION: 1. Findings of cellulitis at the level of the elbow but no evidence of abscess or osteomyelitis Wyatt Alcala MD Assessment & Plan Assessment and Plan Abscess versus hematoma right biceps. Sedimentation rate. C reactive protein. Correction of coagulopathy would be of benefit. Will evaluate the patient after study is completed Kelvin Harley MD Apr 04, 2017 18:41
[2017-04-04] MEDS: ARIPiprazole 5 MG TAB PO SCH (20:27)
[2017-04-04] MEDS: clonazePAM 0.5 MG TAB PO SCH (20:28)
[2017-04-04 20:30] VITALS: BP 126/72; PULSE 88; RESP 22; TEMP 99.6; O2SAT 95
[2017-04-04] MEDS ORDERED: APIXABAN 2.5 MG TABLET PO SCH (21:00)
[2017-04-04] MEDS ORDERED: PHYTONADIONE INJ 1 MG/0.5 ML AMP SQ ONE (21:30)
[2017-04-05] VITALS: BP 138/78; PULSE 90; RESP 22; TEMP 98.3; O2SAT 95
[2017-04-05] MEDS: PIPERACIL-TAZO 3.375 GM PREMIX 50 ML IV SCH ×3 (02:19→17:02)
[2017-04-05] MEDS: VANCOMYCIN INJ 2,000 MG in SODIUM CHLORID 0.9% 500 ML INJ 500 ML IV SCH ×2 (06:20→17:37)
[2017-04-05 07:14] LABS: BLOOD, URINE NEG (NEG); COMMENT (UR) CULT NOT INDICATED; CULTURE IF INDICATED CULT NOT INDICATED; GLUCOSE,URINE NEG (NEG); KETONE, URINE NEG (NEG); MUCUS URINE FEW /lpf (OCC); NITRITE,URINE NEG (NEG); PH, URINE 7.5 (5.0-8.5); SQUAMOUS EPITHELIAL CELL URINE <1 /hpf (0-5); URINE COLOR YELLOW (YELLW/STRAW)
[2017-04-05] MEDS: clonazePAM 0.5 MG TAB PO SCH ×2 (07:59→19:30)
[2017-04-05] MEDS: LISINOPRIL 5 MG TAB PO SCH (07:59)
[2017-04-05 08:00] VITALS: BP 133/78; PULSE 84; RESP 18; TEMP 98.4; O2SAT 93
[2017-04-05] MEDS: SODIUM CHLORIDE 0.9% FLUSH 10 ML FLUSH IV FLUSH SCH ×2 (08:01→19:32)
[2017-04-05 08:10] LABS: INTERNATIONAL NORMALIZED RATIO 1.5 RATIO; PROTHROMBIN TIME - PATIENT 14.8 SEC (9.8-11.6)
[2017-04-05 08:11] LABS: AUTOMATED NEUTROPHIL # 4.4 TH/MM3 (1.8-7.7); BASOPHIL % 0.6 % (0.0-2.0); EOSINOPHIL # 0.1 TH/MM3 (0-0.4); EOSINOPHIL % 1.8 % (0.0-4.0); HEMATOCRIT 32.2 % (39.0-51.0); HEMO FLAGS DIFF FINAL; LYMPH % 23.4 % (9.0-44.0); LYMPHOCYTE # 1.6 TH/MM3 (1.0-4.8); MEAN CELL VOLUME 90.5 FL (80.0-100.0); MEAN CORPUSCULAR HEMOGLOBIN 30.6 PG (27.0-34.0); MEAN CORPUSCULAR HGB CONC 33.9 % (32.0-36.0); MONO % 8.8 % (0.0-8.0); NEUT % 65.4 % (16.0-70.0); PLATELET COUNT 374 TH/MM3 (150-450); RED BLOOD COUNT 3.55 MIL/MM3 (4.50-5.90); RED CELL DISTRIBUTION WIDTH 14.6 % (11.6-17.2); WHITE BLOOD COUNT 6.7 TH/MM3 (4.0-11.0)
[2017-04-05 08:28] LABS: POTASSIUM 3.8 MEQ/L (3.5-5.1)
[2017-04-05] MEDS ORDERED: LACTULOSE SYRUP 20 GM/30 ML CUP PO PRN (09:15)
[2017-04-05] MEDS ORDERED: SENNOSIDES 8.6 MG TAB PO PRN (09:15)
[2017-04-05] MEDS ORDERED: MAGNESIUM HYDROXIDE SUSP 30 ML CUP PO PRN ×2 (09:15→15:30)
[2017-04-05] MEDS ORDERED: MORPHINE SULFATE 4 MG/ML INJ IV PUSH PRN (09:15)
[2017-04-05] MEDS ORDERED: NALOXONE HCL 0.4 MG/ML AMP IV PUSH PRN ×2 (09:15→15:30)
[2017-04-05] MEDS ORDERED: ONDANSETRON HCL 4 MG/2 ML VIAL IVP PRN ×2 (09:15→15:30)
[2017-04-05] MEDS ORDERED: BISACODYL 10 MG SUPP RECTAL PRN (09:15)
[2017-04-05 12:00] VITALS: BP 140/85; PULSE 81; RESP 20; TEMP 97.8; O2SAT 94
[2017-04-05] MEDS ORDERED: LIDOCAINE HCL 1% PF 5 ML SYRINGE OTHER ONE (12:00)
[2017-04-05] MEDS ORDERED: PHENYLEPH/NS 1000 MCG/10 ML SYR IV ONE (12:00)
[2017-04-05] MEDS ORDERED: ONDANSETRON HCL 4 MG/2 ML VIAL IV ONE (12:00)
[2017-04-05] MEDS ORDERED: DEXAMETHASONE SOD PHOS 4 MG/ML VIAL IV ONE (12:00)
[2017-04-05] MEDS ORDERED: PROPOFOL 200 MG/20 ML AMP IV ONE (12:00)
[2017-04-05] MEDS ORDERED: MORPHINE SULFATE 4 MG/ML INJ IV ONE (12:00)
[2017-04-05] MEDS ORDERED: MIDAZOLAM HCL 2 MG/2 ML VIAL IV ONE (12:00)
--- NOTE | 2017-04-05 12:09 | HHI.PYPN ---
Subjective Remarks Patient was seen today for psychiatric reevaluation, patient continues to be disorganized, acutely manic, very talkative, with pronounced grandeur and paranoid delusions. Patient says that he has been trying to connect with his friend Kenrick Cedeño to let him know he has been rojas acted. He is very irritable and upset, stating I want to admit him in psychiatry to steal is money. He says that he is in danger to be evicted from his [employer] if he is in the hospital more than 5 days. Patient expressed a fair understanding of the need of surgery in his right biceps. He also agrees with continue taking his psychotropic medication. The patient is fully oriented 3, no attention deficit , no fluctuation of consciousness present. Patient denies suicidal and homicidal ideation, he denies visual and auditory hallucinations. He has been compliant with his psychotropics, no significant side effects reported or observed. Review of Systems Musculoskeletal: COMPLAINS OF: Joint pain, Muscle aches Psychiatric: COMPLAINS OF: Mood changes, Delusions Except as stated in HPI: all other systems reviewed are Neg Mental Status Examination Appearance: Dirty, Disheveled, Malodorous Consciousness: Alert Orientation: x4 Motor Activity: Normal gait Speech: Pressured, Incoherent Language: Adequate Fund of Knowledge: Adequate Attention and Concentration: Adequate Memory: Unremarkable Mood: Angry, Manic Affect: Labile Thought Process & Associations: Loose associations, Disorganized, Tangential Thought Content: Bizarre thinking, Racing thoughts, Preoccupations, Delusional Hallucination Type: None Delusion Type: Paranoid, Other (delusions of grandiosity) Suicidal Ideation: No Suicidal Plan: No Suicidal Intention: No Homicidal Ideation: No Homicidal Plan: No Homicidal Intention: No Insight: Poor Judgment: Poor Results Labs Test 04/04/17 19:10 04/05/17 06:30 04/05/17 07:36 Erythrocyte Sedimentation Rate GREATER THAN 140 mm/hr C-Reactive Protein 6.30 MG/DL Urine Color YELLOW Urine Turbidity HAZY Urine pH 7.5 Urine Specific [place] 1.014 Urine Protein NEG mg/dL Urine Glucose (UA) NEG mg/dL Urine Ketones NEG mg/dL Urine Occult Blood NEG Urine Nitrite NEG Urine Bilirubin NEG Urine Urobilinogen 2.0 MG/DL Urine Leukocyte Esterase NEG Urine RBC LESS THAN 1 /hpf Urine WBC 1 /hpf Urine Squamous Epithelial Cells <1 /hpf Urine Amorphous Sediment FEW Urine Mucus FEW /lpf Microscopic Urinalysis Comment CULT NOT INDICATED White Blood Count 6.7 TH/MM3 Red Blood Count 3.55 MIL/MM3 Hemoglobin 10.9 GM/DL Hematocrit 32.2 % Mean Corpuscular Volume 90.5 FL Mean Corpuscular Hemoglobin 30.6 PG Mean Corpuscular Hemoglobin Concent 33.9 % Red Cell Distribution Width 14.6 % Platelet Count 374 TH/MM3 Mean Platelet Volume 7.4 FL Neutrophils (%) (Auto) 65.4 % Lymphocytes (%) (Auto) 23.4 % Monocytes (%) (Auto) 8.8 % Eosinophils (%) (Auto) 1.8 % Basophils (%) (Auto) 0.6 % Neutrophils # (Auto) 4.4 TH/MM3 Lymphocytes # (Auto) 1.6 TH/MM3 Monocytes # (Auto) 0.6 TH/MM3 Eosinophils # (Auto) 0.1 TH/MM3 Basophils # (Auto) 0.0 TH/MM3 CBC Comment DIFF FINAL Differential Comment Prothrombin Time 14.8 SEC Prothromb Time International Ratio 1.5 RATIO Blood Urea Nitrogen 8 MG/DL Creatinine 0.56 MG/DL Random Glucose 88 MG/DL Calcium Level 8.7 MG/DL Sodium Level 140 MEQ/L Potassium Level 3.8 MEQ/L Chloride Level 108 MEQ/L Carbon Dioxide Level 26.0 MEQ/L Anion Gap 6 MEQ/L Estimat Glomerular Filtration Rate 149 ML/MIN Date/Time Source Procedure Growth Status 04/04/17 16:45 Blood Peripheral Aerobic Blood Culture - Preliminary NO GROWTH IN 1 DAY Resulted 04/04/17 16:45 Blood Peripheral Anaerobic Blood Culture - Preliminary NO GROWTH IN 1 DAY Resulted Vitals/IOs Vital Signs Date Time Temp Pulse Resp B/P (MAP) Pulse Ox O2 Delivery O2 Flow Rate FiO2 04/05/17 00:00 98.3 90 22 138/78 (98) 95 04/04/17 03:51 Room Air Intake and Output 04/05/17 04/05/17 04/06/17 08:00 16:00 00:00 Intake Total 410 ml 520 ml Output Total 200 ml Balance 210 ml 520 ml Assessment & Plan Problem List: (1) Bipolar disorder, current episode mixed, severe, with psychotic features ICD Codes: F31.64 - Bipolar disorder, current episode mixed, severe, with psychotic features Assessment & Plan: Patient continues to show manic/psychotic behavior and speech. Cognition is intact. He denies suicidal and homicidal ideation, visual and auditory hallucinations. No agitation or aggressive behavior reported. We will increase lithium to 300 mg 3 times a day to help with sergio and psychosis, continue rest of psychotropics at the same dose. Order Diggins levels. QTC is 418. Labs reviewed. Patient needs psychiatric admission for stabilization and safety. Please transfer to psychiatry once medically possible. Rojas act is in paper chart. Assessment & Plan Estimated LOS: days Justification for Cont. Inpt. Patient needs psychiatric admission for stabilization and safety. Trent Franco MD Apr 05, 2017 12:08
[2017-04-05] MEDS: LITHIUM CARBONATE 300 MG TAB PO SCH ×2 (13:28→17:34)
[2017-04-05] MEDS ORDERED: GENTAMICIN SULFATE 80 MG/2 ML VIAL ONE (13:50)
--- NOTE | 2017-04-05 14:03 | HHI.PR ---
Objective Vitals Vital Signs Date Time Temp Pulse Resp B/P (MAP) Pulse Ox O2 Delivery O2 Flow Rate FiO2 04/05/17 12:00 97.8 81 20 140/85 (103) 94 04/05/17 08:00 98.4 84 18 133/78 (96) 93 04/05/17 00:00 98.3 90 22 138/78 (98) 95 04/04/17 20:30 99.6 88 22 126/72 (90) 95 04/04/17 16:00 97.2 85 20 142/82 (102) 97 I/O 04/04/17 04/04/17 04/04/17 04/05/17 04/05/17 04/05/17 07:00 15:00 23:00 07:00 15:00 23:00 Intake Total 942 ml 1650 ml 410 ml 520 ml Output Total 200 ml Balance 942 ml 1650 ml 210 ml 520 ml Intake Oral 942 ml 360 ml IV Total 1650 ml 50 ml 520 ml Output Urine Total 200 ml # Voids 1 4 3 # Bowel Movements 3 1 0 Result Diagram: 04/05/17 0736 04/05/17 0736 A/P Problem List: (1) Right shoulder pain ICD Code: M25.511 - Pain in right shoulder (2) Cellulitis of right upper extremity ICD Code: L03.113 - Cellulitis of right upper limb Status: Acute (3) Cellulitis of right lower extremity ICD Code: L03.115 - Cellulitis of right lower limb Status: Acute (4) Bipolar disorder, current episode mixed, severe, with psychotic features ICD Code: F31.64 - Bipolar disorder, current episode mixed, severe, with psychotic features (5) Schizophrenia, paranoid, chronic ICD Code: F20.0 - Paranoid schizophrenia Status: Acute Marcel Hernandez MD Apr 05, 2017 14:03
[2017-04-05] MEDS ORDERED: LACTATED RINGER'S 1000 ML INJ 1,000 ML IV SCH (15:22)
--- NOTE | 2017-04-05 15:22 | PD.CONS ---
HPI Service Orthopedic Surgeons Consult Requested By Reason for Consult Abscess in the right arm Primary Care Physician Kari Schulz Do, MD Admission Diagnosis Abscess right arm cellulitis right upper extremity Diagnoses: (1) Right shoulder pain (2) Cellulitis of right upper extremity Diagnosis: Principal (3) Cellulitis of right lower extremity Diagnosis: Secondary (4) Bipolar disorder, current episode mixed, severe, with psychotic features Diagnosis: Principal (5) Schizophrenia, paranoid, chronic Diagnosis: Secondary Chief Complaint: Pain in the right arm History of Present Illness This patient is a 61-year-old white male with a documented history of bipolar disorder and psychotic features. The patient was admitted to the hospital with a severe state of disorganization and very unkept. The patient presented and records reflect that he had diarrhea on his lower extremities. He had swelling and pain of the right arm is using a sling. Is unclear what workup he's had. During his evaluation he was found to have an elevated sedimentation rate of greater than 140 with an elevated C-reactive protein. His white blood cell count is normal. CT of the right arm shows evidence of cellulitis of the right arm and an abscess of the right biceps extending up toward the elbow. I reviewed the studies was concerned this might be hematoma as the patient is on Plavix. Sedimentation rate and C-reactive protein were ordered showing a significant elevation and this is now felt be very suspicious for an abscess with surrounding cellulitis. Past Family Social History Past Medical History Schizophrenia, paranoid Bipolar disorder with recurrent episodes of psychosis History of colon cancer History DVT of the right lower extremity Hypertension Past Surgical History Patient had partial colectomy for colon cancer in 2003 IVC filter placement in April 2015. Allergies: Coded Allergies: No Known Allergies (Verified Allergy, Unknown, 04/04/17) Active Ordered Medications Current Medications Medications (Trade) Dose Ordered Sig/Cb Route Start Time Stop Time Status Last Admin (NS Flush) 2 ml UNSCH PRN IV FLUSH 04/04/17 05:30 (NS Flush) 2 ml BID IV FLUSH 04/04/17 09:00 04/04/17 20:28 (Tylenol) 650 mg Q4H PRN PO 04/04/17 09:45 (Prinivil) 5 mg DAILY PO 04/05/17 09:00 04/05/17 07:59 (Abilify) 5 mg HS PO 04/04/17 21:00 04/04/17 20:27 (Haldol Inj) 5 mg Q6H PRN IM 04/04/17 14:30 (KlonoPIN) 0.5 mg Q12HR PO 04/04/17 21:00 04/05/17 07:59 Pharmacy Profile Note 0 ml @ 0 mls/hr UNSCH OTHER 04/04/17 16:00 Piperacillin Sod/ Tazobactam Sod 50 ml @ 100 mls/hr Q8H IV 04/04/17 17:00 04/05/17 10:04 Vancomycin HCl 2000 mg/Sodium Chloride 520 ml @ 250 mls/hr Q12H IV 04/05/17 05:00 04/05/17 06:20 Miscellaneous Information SPECIFIC LAB TO BE BRANDON... ONCE ONCE .XX 04/06/17 04:45 04/06/17 04:46 (Zofran Inj) 4 mg Q6H PRN IVP 04/05/17 09:15 (Roxicodone) 10 mg Q4H PRN PO 04/05/17 09:15 (Morphine Inj) 1 mg Q3H PRN IV PUSH 04/05/17 09:15 (Roxicodone) 5 mg Q4H PRN PO 04/05/17 09:15 (Narcan Inj) 0.4 mg UNSCH PRN IV PUSH 04/05/17 09:15 (Rebekah-Colace) 1 tab BID PO 04/05/17 21:00 (Milk Of Magnesia Liq) 30 ml Q12H PRN PO 04/05/17 09:15 (Senokot) 17.2 mg Q12H PRN PO 04/05/17 09:15 (Dulcolax Supp) 10 mg DAILY PRN RECTAL 04/05/17 09:15 (Lactulose Liq) 30 ml DAILY PRN PO 04/05/17 09:15 (Lithotabs) 300 mg TID PO 04/05/17 13:00 04/05/17 13:28 Reported Meds & Active Scripts Active [place] Carbonate 300 Mg Tab 300 Mg PO 1 PO AM, 2 PO HS Reported Eliquis (Apixaban) 2.5 Mg Tab 2.5 Mg PO BID Lisinopril 5 Mg Tab 5 Mg PO DAILY Family History Father from stroke at age 63 and Mother from "natural causes "at age 88 Social History Patient reports smoking one pack per week of cigarettes for the past 7 years Denies alcohol Denies any illicit drugs. Physical Exam Vital Signs Vital Signs Date Time Temp Pulse Resp B/P (MAP) Pulse Ox O2 Delivery O2 Flow Rate FiO2 04/05/17 12:00 97.8 81 20 140/85 (103) 94 04/05/17 08:00 98.4 84 18 133/78 (96) 93 04/05/17 00:00 98.3 90 22 138/78 (98) 95 04/04/17 20:30 99.6 88 22 126/72 (90) 95 04/04/17 16:00 97.2 85 20 142/82 (102) 97 Physical Exam The patient has mild disorganization of his thoughts. He seen on the medical floor. He indicates he wants something to eat. He has been nothing by mouth anticipating surgery. I explained to him the nature of the disorder of his right arm and he agreed to allowing me to evaluate him. HEENT: Normocephalic atraumatic pupils equal round reactive. NECK: Supple. No abnormal masses. Full range of motion. CHEST: Clear to auscultation with no rales or rhonchi's or wheezes. HEART: Regular rate and rhythm. No murmurs. ABDOMEN: Soft, nontender, no masses. Normal active bowel sounds. GENITOURINARY: Deferred MUSCULOSKELETAL: The right arm is in a sling. There is moderate swelling of the right arm. There is some sort of a cream in the region of the axilla. The patient is unclear as to why this is there. There is swelling in the region of the right biceps extending for the shoulder. No significant warmth or erythema he had radial pulses 2+. Sensation is normal. He resists motion of the right shoulder. Laboratory Laboratory Tests Test 04/04/17 19:10 04/05/17 06:30 04/05/17 07:36 Erythrocyte Sedimentation Rate GREATER THAN 140 C-Reactive Protein 6.30 Urine Color YELLOW Urine Turbidity HAZY Urine pH 7.5 Urine Specific [place] 1.014 Urine Protein NEG Urine Glucose (UA) NEG Urine Ketones NEG Urine Occult Blood NEG Urine Nitrite NEG Urine Bilirubin NEG Urine Urobilinogen 2.0 Urine Leukocyte Esterase NEG Urine RBC LESS THAN 1 Urine WBC 1 Urine Squamous Epithelial Cells <1 Urine Amorphous Sediment FEW Urine Mucus FEW Microscopic Urinalysis Comment CULT NOT INDICATED White Blood Count 6.7 Red Blood Count 3.55 Hemoglobin 10.9 Hematocrit 32.2 Mean Corpuscular Volume 90.5 Mean Corpuscular Hemoglobin 30.6 Mean Corpuscular Hemoglobin Concent 33.9 Red Cell Distribution Width 14.6 Platelet Count 374 Mean Platelet Volume 7.4 Neutrophils (%) (Auto) 65.4 Lymphocytes (%) (Auto) 23.4 Monocytes (%) (Auto) 8.8 Eosinophils (%) (Auto) 1.8 Basophils (%) (Auto) 0.6 Neutrophils # (Auto) 4.4 Lymphocytes # (Auto) 1.6 Monocytes # (Auto) 0.6 Eosinophils # (Auto) 0.1 Basophils # (Auto) 0.0 CBC Comment DIFF FINAL Differential Comment Prothrombin Time 14.8 Prothromb Time International Ratio 1.5 Blood Urea Nitrogen 8 Creatinine 0.56 Random Glucose 88 Calcium Level 8.7 Sodium Level 140 Potassium Level 3.8 Chloride Level 108 Carbon Dioxide Level 26.0 Anion Gap 6 Estimat Glomerular Filtration Rate 149 Date/Time Source Procedure Growth Status 04/04/17 16:45 Blood Peripheral Aerobic Blood Culture - Preliminary NO GROWTH IN 1 DAY Resulted 04/04/17 16:45 Blood Peripheral Anaerobic Blood Culture - Preliminary NO GROWTH IN 1 DAY Resulted Result Diagram: 04/05/17 0736 04/05/17 0736 Imaging Review of x-rays and CT of the right upper extremity shows no evidence of a fracture. Cellulitis is seen extending down into the lower arm with evidence of an abscess of the right biceps extending toward the shoulder Assessment & Plan Assessment and Plan Abscess right upper arm. Cellulitis right arm. Paranoid schizophrenia. Recent psychosis. PLAN: Surgical treatment for irrigation and debridement of the right arm with evacuation of abscess. We might need to pack this open and a wound VAC might be necessary. CONSENT: There are risks with this condition and surgery including infection, bleeding, loss of motion, need for further surgery, continuation of the infection that might need further debridement, possible skin grafting, neurologic or vascular injury. The patient understands these issues and has agreed to proceed forward with surgery as outlined above. We recognized this is a potentially life-threatening condition. If infection proceeds more proximally, the patient may develop necrotizing fasciitis which may shorten his life for cause significant arm area and for that reason, surgical treatment is felt to be reasonable and urgent for this condition. Kelvin Harley MD Apr 05, 2017 15:22
[2017-04-05] MEDS ORDERED: DO NOT ADM ANY ANTICOAGULANT DRUGS PRN (16:04)
--- NOTE | 2017-04-05 16:09 | EKG ---
Date Performed: 04/04/2017 Time Performed: 16:10:06 PTAGE: 61 years EKG: Sinus rhythm NORMAL ECG Since PREVIOUS TRACING , no significant change noted PREVIOUS TRACIN01/23/2017 16.40 DOCTOR: Gregory Hough Interpretating Date/Time 04/05/2017 16:07:56
--- NOTE | 2017-04-05 17:26 | PD.OP ---
cc: Kelvin Harley MD Operative Report Date of Surgery: Apr 05, 2017 Preoperative Diagnosis: Abscess of the right upper arm Postoperative Diagnosis: Abscess of the right biceps. Loculated abscess involving right biceps upper arm and anterior right shoulder Procedure: Irrigation and debridement of skin subcutaneous tissue muscle and fascia of the right upper arm. Placement of large wound VAC, 15 x 5 cm Anesthesia: Gen. Surgeon: Kelvin Harley Java Web Engineer(s): ROSI Carvalho Operation and Findings: EBL: 300 cc. NOTE: Kaylie Carvalho PA-C was present for the entire surgical procedure as my student assistant. In my medical opinion her skill and care was necessary for proper management of this patient. INDICATION: This patient is a 61-year-old male with severe pain in the right upper arm. Studies are consistent with an abscess of the right upper arm extending toward the shoulder. He presents for surgical treatment PROCEDURE: The patient brought the operating room and anesthetized in the supine position. He was placed on a standard table. He is placed in a semi- beachchair position. The right arm and shoulder was scrubbed with alcohol followed by Hibiclens followed by chloro prep and draped sterilely. Antibiotics had been previously given because of concern of cellulitis and an abscess. A timeout was done. An incision was made over the proximal biceps and carried proximally for the shoulder. An abscess was readily identified extending down to the bone and along the region of the biceps tendon. Cultures were taken and sent to microbiology. This was tracked up along the biceps tendon and for the shoulder but did not appear to go into the shoulder. This was extended further. The cephalic vein was protected. This was irrigated copiously with antibiotic irrigation. The wound was then closed with a wound VAC. This was then placed to proper suction. A sterile dressing was applied and the patient awakened to the recovery room in satisfactory condition FINDINGS: Was evidence of a large loculated abscess involving the proximal arm along the region of the biceps. Some this extended toward the shoulder. This was completely drained and cultures obtained. Kelvin Harley MD Apr 05, 2017 17:26
--- NOTE | 2017-04-05 17:28 | HHI.PR ---
Subjective Remarks Follow-up right arm abscess. Tolerated surgery complaining of moderate pain 5 out of 10. No finger numbness or weakness. Denies hallucinations. Discussed with RN Objective Vitals Vital Signs Date Time Temp Pulse Resp B/P (MAP) Pulse Ox O2 Delivery O2 Flow Rate FiO2 04/05/17 12:00 97.8 81 20 140/85 (103) 94 04/05/17 08:00 98.4 84 18 133/78 (96) 93 04/05/17 00:00 98.3 90 22 138/78 (98) 95 04/04/17 20:30 99.6 88 22 126/72 (90) 95 I/O 04/04/17 04/04/17 04/04/17 04/05/17 04/05/17 04/05/17 07:00 15:00 23:00 07:00 15:00 23:00 Intake Total 942 ml 1650 ml 410 ml 520 ml 800 ml Output Total 200 ml 50 ml Balance 942 ml 1650 ml 210 ml 520 ml 750 ml Intake Oral 942 ml 360 ml IV Total 1650 ml 50 ml 520 ml Other 800 ml Output Urine Total 200 ml Estimated Blood Loss 50 ml # Voids 1 4 3 # Bowel Movements 3 1 0 Result Diagram: 04/05/17 0736 04/05/17 0736 Imaging Last Impressions Upper Extremity Ultrasound 04/04/17 0320 Signed Impressions: Service Date/Time: Tuesday, April 04, 2017 04:31 - CONCLUSION: Negative exam no evidence of deep venous thrombosis. Hector Mancini MD Shoulder X-Ray 04/04/17 0310 Signed Impressions: Service Date/Time: Tuesday, April 04, 2017 03:24 - CONCLUSION: Degenerative changes in the glenohumeral joint. Hector Mancini MD Upper Extremity CT 04/04/17 0000 Signed Impressions: Service Date/Time: Tuesday, April 04, 2017 14:20 - CONCLUSION: 1. Findings characteristic of multilocular abscess involving the biceps muscle as described above without evidence of osteomyelitis Wyatt Alcala MD Objective Remarks GENERAL: Well-developed and well-nourished in no distress Skin: No rashes or lesions CARDIAC: Regular rhythm, regular rate. S1/S2 are heard. No murmurs gallops or rubs. LUNGS: Clear to auscultation bilaterally. No wheeze, rhonchi or rales. No use of accessory muscles on inspiration or expiration. ABDOMEN: Soft, nontender. Nondistended. Bowel sounds heard in all 4 quadrants. Negative rebound, negative guarding EXTREMITIES: Right upper extremity in a sling with dry dressing NEUROLOGY: No facial droop, no slurred speech, no unilateral lid lag. Procedures Incision and drainage right arm abscess A/P Problem List: (1) Right shoulder pain ICD Code: M25.511 - Pain in right shoulder (2) Cellulitis of right upper extremity ICD Code: L03.113 - Cellulitis of right upper limb Status: Acute (3) Cellulitis of right lower extremity ICD Code: L03.115 - Cellulitis of right lower limb Status: Acute (4) Bipolar disorder, current episode mixed, severe, with psychotic features ICD Code: F31.64 - Bipolar disorder, current episode mixed, severe, with psychotic features (5) Schizophrenia, paranoid, chronic ICD Code: F20.0 - Paranoid schizophrenia Status: Acute Assessment and Plan 61 year-old male who originally presented to hospital because of right shoulder pain. Bipolar disorder, mixed severe with psychosis -Continue lithium, Abilify, clonazepam and as needed Haldol. He is still under Rojas act. Psychiatry has accepted the patient to be transferred once medically stable Right arm abscess/cellulitis status post I and D with wound VAC placement. Continue postoperative care with PT, wound care, pain management with Lortab and IV morphine and antibiotics with Zosyn and vancomycin and follow up culture. Hypertension. Stable continue lisinopril DVT. Restart Eliquis when okay by orthopedic surgery Discharge Planning Transfer to psychiatry floor when wound VAC discontinued Marcel Hernandez MD Apr 05, 2017 17:28
[2017-04-05] MEDS ORDERED: diphenhydrAMINE HCL 25 MG CAP PO PRN (18:00)
[2017-04-05] MEDS: DOCUSATE SODIUM 50 MG/SENNA 8.6 MG TAB PO SCH (19:30)
[2017-04-05] MEDS: ARIPiprazole 5 MG TAB PO SCH (19:30)
[2017-04-05 20:30] VITALS: BP 134/79; PULSE 94; RESP 21; TEMP 97.6; O2SAT 95
[2017-04-05] MEDS ORDERED: DOCUSATE SODIUM 50 MG/SENNA 8.6 MG TAB PO SCH (21:00)
[2017-04-06] VITALS: BP 134/76; PULSE 94; RESP 20; TEMP 98.5; O2SAT 94
[2017-04-06] MEDS: PIPERACIL-TAZO 3.375 GM PREMIX 50 ML IV SCH ×2 (00:56→08:07)
[2017-04-06 01:12] VITALS: O2SAT 94
[2017-04-06 04:00] VITALS: BP 142/73; PULSE 85; RESP 20; TEMP 98.8; O2SAT 93
[2017-04-06] MEDS ORDERED: PHARMACY ORDERED LAB ONE (04:45)
[2017-04-06] MEDS: VANCOMYCIN INJ 2,000 MG in SODIUM CHLORID 0.9% 500 ML INJ 500 ML IV SCH (05:23)
[2017-04-06 07:56] LABS: AUTOMATED NEUTROPHIL # 8.5 TH/MM3 (1.8-7.7); BASOPHIL % 0.4 % (0.0-2.0); EOSINOPHIL % 0.1 % (0.0-4.0); HEMO FLAGS DIFF FINAL; LYMPH % 16.2 % (9.0-44.0); LYMPHOCYTE # 1.8 TH/MM3 (1.0-4.8); MEAN CELL VOLUME 91.2 FL (80.0-100.0); MEAN CORPUSCULAR HEMOGLOBIN 30.8 PG (27.0-34.0); MEAN CORPUSCULAR HGB CONC 33.8 % (32.0-36.0); MONO % 5.7 % (0.0-8.0); NEUT % 77.6 % (16.0-70.0); PLATELET COUNT 406 TH/MM3 (150-450); RED BLOOD COUNT 3.51 MIL/MM3 (4.50-5.90); RED CELL DISTRIBUTION WIDTH 14.7 % (11.6-17.2); WHITE BLOOD COUNT 10.9 TH/MM3 (4.0-11.0)
[2017-04-06 08:00] VITALS: BP 132/76; PULSE 89; RESP 19; TEMP 97.5; O2SAT 94
[2017-04-06] MEDS: DOCUSATE SODIUM 50 MG/SENNA 8.6 MG TAB PO SCH (08:08)
[2017-04-06] MEDS: clonazePAM 0.5 MG TAB PO SCH (08:08)
[2017-04-06] MEDS: LISINOPRIL 5 MG TAB PO SCH (08:08)
[2017-04-06] MEDS: LITHIUM CARBONATE 300 MG TAB PO SCH ×2 (08:09→12:08)
[2017-04-06 08:10] LABS: BICARBONATE 23.9 MEQ/L (21.0-32.0); POTASSIUM 3.8 MEQ/L (3.5-5.1)
--- NOTE | 2017-04-06 08:27 | PD.ORT.PN ---
Subjective Subjective Remarks Doing well. Pain appears to be controlled though it is difficult to get an answer. No complaints of new radiating arm pain. Denies new CP or SOB. Objective Vitals Vital Signs Date Time Temp Pulse Resp B/P (MAP) Pulse Ox O2 Delivery O2 Flow Rate FiO2 04/06/17 04:00 98.8 85 20 142/73 (96) 93 04/06/17 01:12 94 21 04/06/17 00:00 98.5 94 20 134/76 (95) 94 04/05/17 20:30 97.6 94 21 134/79 (97) 95 04/05/17 16:35 98.8 84 15 140/78 (98) 98 Nasal Cannula 2 04/05/17 16:15 82 15 140/81 (100) 98 Nasal Cannula 2 04/05/17 16:05 98.7 84 15 129/79 (96) 98 Nasal Cannula 2 04/05/17 12:00 97.8 81 20 140/85 (103) 94 I/O 04/05/17 04/05/17 04/05/17 04/06/17 04/06/17 04/06/17 07:00 15:00 23:00 07:00 15:00 23:00 Intake Total 410 ml 570 ml 2450 ml 550 ml Output Total 200 ml 1350 ml 200 ml Balance 210 ml 570 ml 1100 ml 350 ml Intake Oral 360 ml 1000 ml 500 ml IV Total 50 ml 570 ml 650 ml 50 ml Other 800 ml Output Urine Total 200 ml 1300 ml 200 ml Drainage Total 0 ml 0 ml Estimated Blood Loss 50 ml # Voids 3 2 # Bowel Movements 0 0 Result Diagram: 04/05/17 0736 04/06/17 0718 Imaging Last 24 hours Impressions Upper Extremity Ultrasound 04/04/17319 Signed Impressions: Service Date/Time: Tuesday, April 04, 2017 04:31 - CONCLUSION: Negative exam no evidence of deep venous thrombosis. Hector Mancini MD Shoulder X-Ray 04/04/17309 Signed Impressions: Service Date/Time: Tuesday, April 04, 2017 03:24 - CONCLUSION: Degenerative changes in the glenohumeral joint. Hector Mancini MD Upper Extremity CT 04/04/17 0000 Signed Impressions: Service Date/Time: Tuesday, April 04, 2017 14:20 - CONCLUSION: 1. Findings characteristic of multilocular abscess involving the biceps muscle as described above without evidence of osteomyelitis Wyatt Alcala MD Upper Extremity CT 04/04/17 0000 Signed Impressions: Service Date/Time: Tuesday, April 04, 2017 14:20 - CONCLUSION: 1. 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 Cellulitis right arm. Paranoid schizophrenia. Recent psychosis. pod#1 s/p I&D Right arm, VAC application Continue R arm VAC tomorrow then changes every M/W/F PO pain control as needed. Ok to restart Eliquis per Dr. Harley. F/U in 3 weeks outpatient. Meeta Palomares Apr 06, 2017 08:27
[2017-04-06] MEDS ORDERED: MULTIVITAMINS/MINERALS THERAPEUTIC TAB PO SCH (09:00)
--- NOTE | 2017-04-06 10:30 | HHI.PYPN ---
Subjective Remarks The patient was seen today for psychiatric reevaluation, the patient is very irritable, oppositional, requesting to be discharged and threatening to gavin me and gaivn the hospital with "[employer]" hyster driver Firm "this hyster driver has worked with Kenrick Cedeño and will destroy you". He says that the reason he has to leave the hospital is because he is about to be evicted from his apartment. Patient is disorganized, at time pressured and delusional. He has been taking his medications, no side effaces reported. At the end of the interview she became very loud and verbally hostile. Mental Status Examination Appearance: Dirty, Disheveled, Malodorous Consciousness: Alert Orientation: x4 Motor Activity: Normal gait Speech: Pressured, Incoherent Language: Adequate Fund of Knowledge: Adequate Attention and Concentration: Adequate Memory: Unremarkable Mood: Angry, Manic Affect: Labile Thought Process & Associations: Loose associations, Disorganized, Tangential Thought Content: Bizarre thinking, Racing thoughts, Preoccupations, Delusional Hallucination Type: None Delusion Type: Paranoid, Other (delusions of grandiosity) Suicidal Ideation: No Suicidal Plan: No Suicidal Intention: No Homicidal Ideation: No Homicidal Plan: No Homicidal Intention: No Insight: Poor Judgment: Poor Results Labs Test 04/06/17 04:45 04/06/17 07:18 Vancomycin Level Trough 11.9 MCG/ML White Blood Count 10.9 TH/MM3 Red Blood Count 3.51 MIL/MM3 Hemoglobin 10.8 GM/DL Hematocrit 32.0 % Mean Corpuscular Volume 91.2 FL Mean Corpuscular Hemoglobin 30.8 PG Mean Corpuscular Hemoglobin Concent 33.8 % Red Cell Distribution Width 14.7 % Platelet Count 406 TH/MM3 Mean Platelet Volume 7.3 FL Neutrophils (%) (Auto) 77.6 % Lymphocytes (%) (Auto) 16.2 % Monocytes (%) (Auto) 5.7 % Eosinophils (%) (Auto) 0.1 % Basophils (%) (Auto) 0.4 % Neutrophils # (Auto) 8.5 TH/MM3 Lymphocytes # (Auto) 1.8 TH/MM3 Monocytes # (Auto) 0.6 TH/MM3 Eosinophils # (Auto) 0.0 TH/MM3 Basophils # (Auto) 0.0 TH/MM3 CBC Comment DIFF FINAL Differential Comment Blood Urea Nitrogen 10 MG/DL Creatinine 0.54 MG/DL Random Glucose 135 MG/DL Calcium Level 9.0 MG/DL Magnesium Level 2.0 MG/DL Sodium Level 134 MEQ/L Potassium Level 3.8 MEQ/L Chloride Level 102 MEQ/L Carbon Dioxide Level 23.9 MEQ/L Anion Gap 8 MEQ/L Estimat Glomerular Filtration Rate 156 ML/MIN [place] Level 0.2 MEQ/L Date/Time Source Procedure Growth Status 04/04/17 16:45 Blood Peripheral Aerobic Blood Culture - Preliminary NO GROWTH IN 1 DAY Resulted 04/04/17 16:45 Blood Peripheral Anaerobic Blood Culture - Preliminary NO GROWTH IN 1 DAY Resulted 04/05/17 00:00 Wound Arm Fungal Smear Pending Received 04/05/17 00:00 Wound Arm Fungal Culture Pending Received Vitals/IOs Vital Signs Date Time Temp Pulse Resp B/P (MAP) Pulse Ox O2 Delivery O2 Flow Rate FiO2 04/06/17 08:00 97.5 89 19 132/76 (94) 94 04/06/17 01:12 21 04/05/17 16:35 Nasal Cannula 2 Intake and Output 04/06/17 04/06/17 04/07/17 08:00 16:00 00:00 Intake Total 550 ml Output Total 0 ml Balance 550 ml Assessment & Plan Problem List: (1) Bipolar disorder, current episode mixed, severe, with psychotic features ICD Codes: F31.64 - Bipolar disorder, current episode mixed, severe, with psychotic features Assessment & Plan: Patient continues to be acutely manic/psychotic. Shows modest response to psychotropics at the moment. [place] level ordered yesterday. We'll continue current psychotropic regimen today. The patient is to be transferred to psychiatry for stabilization his manic episode and safety. Assessment & Plan Estimated LOS: days Justification for Cont. Inpt. Patient is on the Rojas act psychiatric admission for stabilization and safety. Trent Franco MD Apr 06, 2017 10:30
[2017-04-06] MEDS ORDERED: ARIP1TAB11 PO (10:42)
[2017-04-06] MEDS ORDERED: LITH300T3 PO (10:42)
[2017-04-06] MEDS ORDERED: CLON.5 PO (10:42)
--- NOTE | 2017-04-06 10:42 | HHI.DCPOC ---
Discharge Care Plan Diagnosis: (1) Right shoulder pain Your Health Problems Are: Difficulty with ADL Exercise Tolerance Goals to Promote Your Health * To prevent worsening of your condition and complications * To maintain your health at the optimal level Directions to Meet Your Goals Take your medications as prescribed Follow your dietary instruction Follow activity as directed Keep your appointments as scheduled Take your immunizations and boosters as scheduled If your symptoms worsen call your PCP, if no PCP go to Urgent Care Center or Emergency Room Smoking is Dangerous to Your Health. Avoid second hand smoke Call the 24-hour hour crisis hotline for domestic abuse at Marcel Hernandez MD Apr 06, 2017 10:42
[2017-04-06] MEDS ORDERED: APIXABAN 2.5 MG TABLET PO ONE (11:00)
--- NOTE | 2017-04-06 11:17 | HHI.DS ---
Discharge Summary Admission Date Apr 04, 2017 at 11:13 Discharge Date: Apr 06, 2017 Admitting Diagnosis Abscess right arm cellulitis right upper extremity (1) Right shoulder pain ICD Code: M25.511 - Pain in right shoulder Diagnosis: Principal (2) Cellulitis of right upper extremity ICD Code: L03.113 - Cellulitis of right upper limb Diagnosis: Principal Status: Acute (3) Cellulitis of right lower extremity ICD Code: L03.115 - Cellulitis of right lower limb Diagnosis: Secondary Status: Acute (4) Bipolar disorder, current episode mixed, severe, with psychotic features ICD Code: F31.64 - Bipolar disorder, current episode mixed, severe, with psychotic features Diagnosis: Principal (5) Schizophrenia, paranoid, chronic ICD Code: F20.0 - Paranoid schizophrenia Diagnosis: Secondary Status: Acute Procedures Incision and drainage right arm abscess Brief History - From Admission Written by Fritz Wood, acting as scribe for Dr. Acosta on 04/04/17 at 12 :52. 61 year-old male with known history of hypertension, DVT of the right lower extremity, chronic right lower extremity cellulitis, paranoid schizophrenia, bipolar with history psychosis who presented to the hospital because of right shoulder pain. Patient indicates that he is had right shoulder pain for approximately 5 days. States that he is unable to move it, he is unable to use his right hand, he states that his arm is better if he keeps it straight. Patient had workup done with ultrasound of the upper extremity as well as x-ray of the right upper extremity which does not indicate any acute abnormality. However the patient is very resistant to examination. He is not allowing extension or movement of the arm for complete evaluation. Unfortunately, the shoulder that is not the main concern at this time, but his underlying psychiatric condition appears to be the most concerning. One is able to smell the patient outside of the room in the hallway because of he is unkept, disheveled and by his appearance unable to take care of himself. Patient is covered in what he states is diarrhea, dirt. He indicates that he had diarrhea that covered his legs and feet and because of his shoulder pain he is unable to bend over or wash himself with one arm. 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 Upon review medical records it does appears that the patient has had a plethora of admissions for psychiatric issues to include schizophrenia, psychosis, bipolar disorder. Most recent admission was 2 months ago when he was treated by psychiatry with Abilify and lithium. Patient's home medication records do not indicate that he has been taking the Abilify and his lithium level is less than 0.1 which would indicate that patient is not taking his medications. Because of his underlying psychiatric illness is difficult to obtain any information from the patient to include medical history, social history, family history, surgical history, it is difficult to examine the patient due to his resistance. Information was mainly taken from medical records, nursing staff. CBC/BMP: 04/06/17 0718 04/06/17 0718 Significant Findings Laboratory Tests Test 04/04/17 03:15 04/04/17 19:10 04/05/17 06:30 04/05/17 07:36 Red Blood Count 3.80 MIL/MM3 (4.50-5.90) 3.55 MIL/MM3 (4.50-5.90) Hemoglobin 11.1 GM/DL (13.0-17.0) 10.9 GM/DL (13.0-17.0) Hematocrit 33.5 % (39.0-51.0) 32.2 % (39.0-51.0) Platelet Count 469 TH/MM3 (150-450) Monocytes (%) (Auto) 9.5 % (0.0-8.0) 8.8 % (0.0-8.0) Prothrombin Time 15.2 SEC (9.8-11.6) 14.8 SEC (9.8-11.6) Total Protein 8.9 GM/DL (6.4-8.2) Albumin 2.3 GM/DL (3.4-5.0) Sodium Level 131 MEQ/L (136-145) [place] Level LESS THAN 0.1 MEQ/L Erythrocyte Sedimentation Rate GREATER THAN 140 mm/hr C-Reactive Protein 6.30 MG/DL (0.00-0.30) Urine Turbidity HAZY (CLEAR) Urine Mucus FEW /lpf (OCC) Creatinine 0.56 MG/DL (0.60-1.30) Chloride Level 108 MEQ/L (98-107) Test 04/06/17 04:45 04/06/17 07:18 Vancomycin Level Trough 11.9 MCG/ML (5.0-10.0) Red Blood Count 3.51 MIL/MM3 (4.50-5.90) Hemoglobin 10.8 GM/DL (13.0-17.0) Hematocrit 32.0 % (39.0-51.0) Neutrophils (%) (Auto) 77.6 % (16.0-70.0) Neutrophils # (Auto) 8.5 TH/MM3 (1.8-7.7) Creatinine 0.54 MG/DL (0.60-1.30) Random Glucose 135 MG/DL (74-106) Sodium Level 134 MEQ/L (136-145) [place] Level 0.2 MEQ/L (0.5-1.5) Imaging Last Impressions Upper Extremity Ultrasound 04/04/17 0320 Signed Impressions: Service Date/Time: Tuesday, April 04, 2017 04:31 - CONCLUSION: Negative exam no evidence of deep venous thrombosis. Hector Mancini MD Shoulder X-Ray 04/04/170 Signed Impressions: Service Date/Time: Tuesday, April 04, 2017 03:24 - CONCLUSION: Degenerative changes in the glenohumeral joint. Hector Mancini MD Upper Extremity CT 04/04/17 0000 Signed Impressions: Service Date/Time: Tuesday, April 04, 2017 14:20 - CONCLUSION: 1. Findings characteristic of multilocular abscess involving the biceps muscle as described above without evidence of osteomyelitis Wyatt Alcala MD PE at Discharge GENERAL: Well-developed and well-nourished in no distress Skin: No rashes or lesions CARDIAC: Regular rhythm, regular rate. S1/S2 are heard. No murmurs gallops or rubs. LUNGS: Clear to auscultation bilaterally. No wheeze, rhonchi or rales. No use of accessory muscles on inspiration or expiration. ABDOMEN: Soft, nontender. Nondistended. Bowel sounds heard in all 4 quadrants. Negative rebound, negative guarding EXTREMITIES: Right upper extremity in dry dressing right arm with mild pitting edema. NEUROLOGY: No facial droop, no slurred speech, no unilateral lid lag. Hospital Course 61 year-old male who originally presented to hospital because of right shoulder pain. Bipolar disorder, mixed severe with psychosis -Continue lithium, Abilify, clonazepam and as needed Haldol. He is still under Rojas act. Psychiatry has accepted the patient to be transferred once medically stable Right arm abscess/cellulitis status post I and D with wound VAC placement. Improved. Culture with strep switch to by mouth Levaquin discontinue IV Zosyn and vancomycin and follow up final culture. Continue postoperative care with PT /OT, wound care and pain management with Lortab and IV morphine Sepsis 2/2 UR abscess/cellulitis. Improved Hypertension. Stable continue lisinopril DVT. Restart Eliquis okayed by orthopedic surgery Medically stable and cleared for transfer to psychiatry for Pt Condition on Discharge: Stable Discharge Disposition: Disc to Psych Care Fac Discharge Time: > 30 minutes Discharge Instructions DIET: Follow Instructions for: As Tolerated, No Restrictions Activities you can perform: Regular-No Restrictions Activities to Avoid: Driving Follow up Referrals: Orthopedics - 04/07/17 PCP Follow-up - 2-3 Days New Medications: Levofloxacin (Levaquin) 750 Mg Tablet 750 MG PO DAILY for Infection, #10 TAB 0 Refills Aripiprazole (Aripiprazole) 5 Mg Tab 5 MG PO HS for psychosis, #30 TAB Clonazepam (Klonopin) 0.5 Mg Tab 0.5 MG PO Q12HR for psychosis, #6 TAB [place] Carbonate ([place] Carbonate) 300 Mg Tab 300 MG PO TID for psychosis, #90 TAB Continued Medications: Apixaban (Eliquis) 2.5 Mg Tab 2.5 MG PO BID for Blood Clot Prevention, TAB 0 Refills Lisinopril (Lisinopril) 5 Mg Tab 5 MG PO DAILY for Blood Pressure Management, #30 TAB 0 Refills Discontinued Medications: [place] Carbonate ([place] Carbonate) 300 Mg Tab 300 MG PO 1 po Am, 2 po hs for health, #90 TAB 0 Refills Marcel Hernandez MD Apr 06, 2017 11:17
[2017-04-06 12:00] VITALS: BP 129/78; PULSE 103; RESP 19; TEMP 96.9; O2SAT 95
[2017-04-06] MEDS ORDERED: LEVA750T9 PO (13:23)
[2017-04-06 13:32] VITALS: O2SAT 95
--- NOTE | 2017-04-06 15:02 | PD.WCN.NOT ---
Wound Consult Description: Received consult for wound management of buttocks and R foot Communicated with: ELY Hudson and Doctor Hernandez Recommendation: 1.Please cleanse buttock area with soap and water apply skin prep to periwound or R buttock wound before covering with Optifoam gentle 6x6 dressing. Please apply skin prep BID to L buttock area and leave open to air. 2.Please keep RLE clean and dry. Cleanse R lower posterior leg wound with normal saline or wound cleanser and cover with Optilock, secure dressing with rolled gauze and tape. Change dressing every other day or PRN if saturated or dislodged. 3. Keep BLE elevated while patient is sitting in chair or laying in bed. 4. Encourage patient to reposition self frequently to offload pressure from nelia prominences while in bed or in chair 5. [place] eschar to R plantar surface of foot with povidone-iodine BID and leave open to air. Additional Information: Patient seen on for evaluation of buttocks and R foot wound management. Patient seen with Nicky HWANG and commercial loan underwriter.Patient is observed sitting with legs elevated in recliner. Removed saturated socks and SCDs to BLE to reveal macerated moist with slight erythematous skin to RLE, and foul odor. Wound is noted to R posterior lower leg that measures ~1cm x ~1cm x~0.1cm. Wound bed presents with 100% pink tissue and macerated hyperkeratotic tissue is noted to periwound circumferentially. Cleansed Entire RLE with soap and water and dried thoroughly. Wound is also noted to R plantar surface of the foot measuring ~1cm x~1cm x eschar. Wound bed presents with 100% dry eschar that is stable. Periwound is unremarkable. Nicky HWANG painted eschar with povidone-iodine swabs and left open to air. Also Nicky HWANG cleansed wound to R posterior lower leg with normal saline and pat dry before applying Optilock dressing and securing with rolled gauze and tape. Patient stood with assistance for buttock wound assessment. Removed adhesive foam dressing in place to R and L buttock to reveal wound to R buttock with 100 % pink tissue with jagged wound margins.Wound drainage is scant serous and without odor. Wound measures ~4cm x ~3cm x ~0.1cm. L buttock present with blanchable erythema that is moist. Nicky cleansed wound to R buttock with normal saline and applied skin prep to L buttock . Applied bordered gauze to R buttock and applied skin prep to L buttock and open to air. Maria Teresa Richardson [facility] Apr 06, 2017 15:02
[2017-04-06] MEDS ORDERED: APIXABAN 2.5 MG TABLET PO SCH (21:00)
[2017-04-07] MEDS ORDERED: LEVOFLOXACIN 750 MG TAB PO SCH (09:00)
[2017-04-08] MEDS ORDERED: PHARMACY ORDERED LAB ONE (04:45)
== END 2017-04-06 14:50 | DRG 500 ==
LOC: PHED 02:52 → INTOOBSV 05:22 → PHEDA 05:22 → UNDOADMIN 05:33 → PH3B 06:48 → OBSVTOIN 11:13 → N07A 20:04
PROVIDERS: ADMIT Internal Medicine; ATTEND Internal Medicine
PROC: 0K970ZX Drainage of Right Upper Arm Muscle, Open Approach, Diagnostic (ICD-10-PCS; principal; 2017-04-05 14:46)
DX: M60.000 Infective myositis, unspecified right arm (principal); A41.9 Sepsis, unspecified organism; F31.64 Bipolar disorder, current episode mixed, severe, with psychotic features; D68.9 Coagulation defect, unspecified; F20.0 Paranoid schizophrenia; L03.113 Cellulitis of right upper limb; Z79.02 Long term (current) use of antithrombotics/antiplatelets; B95.5 Unspecified streptococcus as the cause of diseases classified elsewhere; I10 Essential (primary) hypertension; F17.210 Nicotine dependence, cigarettes, uncomplicated; Z85.038 Personal history of other malignant neoplasm of large intestine
CPT/HCPCS: 73030; 73201; 80048; 80053; 80178; 80202; 81001; 83735; 85025; 85610; 85652; 85730; 86140; 86403; 87015; 87040; 87070; 87102; 87116; 87205; 87206; 93005; 93971; 94150; J1100; J1170; J1580; J1630; J1956; J2250; J2270; J2370; J2405; J2543; J3010; J3370; J7040; J7120; Q9967

== ENCOUNTER 2017-04-06 11:58 | Inpatient (IN) | payer OTHER, MEDICARE ==
[~2017-04-06] VITALS: Ht 195.6 cm; Wt 91.1 kg
[~2017-04-06 11:58] MED LIST changes: +APIX2.5T PO; +ARIP1TAB11 PO; +CLON.5 PO; -COUM4TAB PO
[2017-04-06] MEDS ORDERED: LEVA750T9 PO (13:23)
[2017-04-06 15:36] VITALS: BP 138/74; PULSE 97; RESP 18; TEMP 98.1; O2SAT 100
[2017-04-06] MEDS ORDERED: MAGNESIUM HYDROXIDE SUSP 30 ML CUP PO PRN (16:00)
[2017-04-06] MEDS ORDERED: LORazepam 2 MG/ML VIAL IM PRN ×2 (16:00)
[2017-04-06] MEDS ORDERED: LORazepam 0.5 MG TAB PO PRN (16:00)
[2017-04-06] MEDS ORDERED: ALUMINUM/MAGNESIUM/SIMETH 30 ML CUP PO PRN (16:00)
[2017-04-06] MEDS: ACETAMINOPHEN 325 MG TAB PO PRN (16:21)
[2017-04-06] MEDS: LEVOFLOXACIN 750 MG TAB PO SCH (17:00)
[2017-04-06] MEDS: LISINOPRIL 5 MG TAB PO SCH (17:00)
[2017-04-06] MEDS: LITHIUM CARBONATE 300 MG TAB PO SCH (18:00)
[2017-04-06 18:25] VITALS: BP 143/80; PULSE 95; RESP 20; TEMP 98.1; O2SAT 95
[2017-04-06] MEDS ORDERED: clonazePAM 0.5 MG TAB PO SCH (21:00)
[2017-04-06] MEDS: LORazepam 1 MG TAB PO PRN (21:54)
[2017-04-06] MEDS: APIXABAN 2.5 MG TABLET PO SCH (21:55)
[2017-04-06] MEDS: ARIPiprazole 5 MG TAB PO SCH (21:55)
[2017-04-07 06:22] VITALS: BP 146/85; PULSE 78; RESP 18; O2SAT 96
--- NOTE | 2017-04-07 08:31 | HHI.HP ---
Provisional Diagnosis Admission Date Apr 06, 2017 at 14:58 [place] I. Bipolar disorder Certification of Person's Competence To Provide Express and Informed Consent I have personally examined Toribio Felix , a person being served at [facility] on, Apr 07, 2017 08:15. Express and informed consent means consent voluntarily given in writing, by a competent person, after sufficient explanation and disclosure of the subject matter involved to enable the person to make a knowing and willful decision without any element of force, fraud, deceit, duress, or other form of constraint or coercion. This person is 18 years of age or older, is not now known to be incompetent to consent to treatment with a guardian advocate, and does not have a health care surrogate or proxy currently making medical treatment decisions. I have found this person to be one of the following: [] Competent to provide express and informed consent, as defined above, for voluntary admission to this facility and is competent to provide express and informed consent for treatment. He/she has the consistent capacity to make well reasoned, willful, and knowing decisions concerning his or her medical or mental health treatment. The person fully and consistently understands the purpose of the admission for examination/placement and is fully capable of personally exercising all rights assured [place] [x] Incompetent to provide express and informed consent to voluntary admission, and this is incompetent to provide express and informed consent to treatment. The person must be transferred to involuntary status and a petition for a guardian advocate filed with the Circuit Court. [] Refusing to provide express and informed consent to voluntary admission but is competent to provide express and informed consent for treatment. The person must be discharged or transferred to involuntary status. Form shall be completed within 24 hours of a person's arrival at the receiving facility and filed in the clinical record of each person: 1. Admitted on a voluntary basis 2. Permitted to provide express and informed consent to his/her own treatment 3. Allowed to transfer from involuntary to voluntary status 4. Prior to permitting a person to consent to his or her own treatment after having been previously found incompetent to consent to treatment. History of Present Illness Capacity: Has Capacity (for medications only) HPI Patient is a 61-year-old man, single, domiciled alone, retired, with a past psychiatric history of bipolar disorder, schizoaffective disorder, multiple psychiatric hospitalizations, last time being December 2016 he was discharged due to [place] [facility], no previous suicide attempts, past medical history of hypertension, DVT of the right lower extremity, chronic lower extremity cellulitis, who presented to the hospital due to right shoulder pain. As per previous documentation : "Patient indicates that he is had right shoulder pain for approximately 5 days. States that he is unable to move it, he is unable to use his right hand, he states that his arm is better if he keeps it straight. Patient had workup done with ultrasound of the upper extremity as well as x-ray of the right upper extremity which does not indicate any acute abnormality. However the patient is very resistant to examination. He is not allowing extension or movement of the arm for complete evaluation. Unfortunately, the shoulder that is not the main concern at this time, but his underlying psychiatric condition appears to be the most concerning. One is able to smell the patient outside of the room in the hallway because of he is unkept, disheveled and by his appearance unable to take care of himself. Patient is covered in what he states is diarrhea, dirt. He indicates that he had diarrhea that covered his legs and feet and because of his shoulder pain he is unable to bend over or wash himself with one arm. 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 Upon review medical records it does appears that the patient has had a plethora of admissions for psychiatric issues to include schizophrenia, psychosis, bipolar disorder. Most recent admission was 2 months ago when he was treated by psychiatry with Abilify and lithium. Patient's home medication records do not indicate that he has been taking the Abilify and his lithium level is less than 0.1 which would indicate that patient is not taking his medications. Because of his underlying psychiatric illness is difficult to obtain any information from the patient to include medical history, social history, family history, surgical history, it is difficult to examine the patient due to his resistance. Information was mainly taken from medical records, nursing staff". As per Dr. Fine's consult note: Patient was noted to be "very disorganized, talkative, with marked pressured speech, tangentiality, flight of ideas, loosening of associations, grandiosity or delusions and paranoia. His lithium level were less than 0.1 which proved that the patient was not compliant with medications. As per revision of documentation the patient has been self-neglecting, not taking care of himself, not taking his medical medications either, and living in deprecatory conditions. " Patient was transferred to the inpatient psychiatry unit for further evaluation and management. Patient was found lying in hospital bed cooperative in interview stating that he had a good breakfast daily that he is here because of his her shoulder. Patient states that he had gotten behind his medications because he had dropped some of the tablets and attempted trying to open the bottle after having hurt his shoulder which he reports had subsequent weakness of his right hand. He states that he did not take medications for the week prior his admission. He states currently that his mood is "happy" and had planned to visit his granddaughter in [place] with his son and son's family with a $10,000 motor home that she had recently bought. Patient denies any SI, HI, AVH or delusions at this time. Patient later states that he plans a [place] to find a stating "no sex until after marriage". Past psychiatric history: Previous psychiatric diagnoses of bipolar disorder, schizoaffective disorder, multiple psychiatric hospitalizations, last being December but was discharged to [place] [facility], no previous suicide attempts, previous medication trials include lithium 600 mg by mouth twice a day and Abilify 10 mg by mouth daily. Substance use history: Tobacco(+), denies use of illegal substances. Past medical history: Hypertension, DVT of the right lower extremity, chronic lower extremity cellulitis Allergies: NKDA Social history: Patient was born and raised in [place], he lives alone in [place], he is unemployed, supported by Social Security, his highest level of education is high school Review of Systems Except as stated in HPI: all other systems reviewed are Neg Past Psych History Violence risk - others (6 mos) Low Violence risk - self (6 mos) Low Substance Abuse History Drugs/Alcohol past 12 months Tobacco(+), denies use of illegal substances. Past Family Social History Coded Allergies: No Known Allergies (Verified Allergy, Unknown, 04/04/17) Active Scripts Levofloxacin (Levaquin) 750 Mg Tablet, 750 MG PO DAILY for Infection, #10 TAB 0 Refills Prov:Marcel Hernandez MD 04/06/17 Stanfield Carbonate (Stanfield Carbonate) 300 Mg Tab, 300 MG PO TID for psychosis, # 90 TAB Prov:Marcel Hernandez MD 04/06/17 Aripiprazole (Aripiprazole) 5 Mg Tab, 5 MG PO HS for psychosis, #30 TAB Prov:Marcel Hernandez MD 04/06/17 Clonazepam (Klonopin) 0.5 Mg Tab, 0.5 MG PO Q12HR for psychosis, #6 TAB Prov:Marcel Hernandez MD 04/06/17 Reported Medications Apixaban (Eliquis) 2.5 Mg Tab, 2.5 MG PO BID for Blood Clot Prevention, TAB 0 Refills 04/04/17 Lisinopril (Lisinopril) 5 Mg Tab, 5 MG PO DAILY for Blood Pressure Management, # 30 TAB 0 Refills 02/16/17 Discontinued Reported Medications Warfarin (Coumadin) 4 Mg Tab, 4 MG PO DAILY for Prevent Blood Clot, #30 TAB 0 Refills 02/16/17 Discontinued Scripts Stanfield Carbonate (Stanfield Carbonate) 300 Mg Tab, 300 MG PO 1 po Am, 2 po hs for health, #90 TAB 0 Refills Prov:Toribio Dejesus MD 01/02/17 Current Medications Medications (Trade) Dose Ordered Sig/Cb Route Start Time Stop Time Status Last Admin (Ativan) 1 mg Q6H PRN PO 04/06/17 16:00 04/06/17 21:54 (Ativan Inj) 1 mg Q6H PRN IM 04/06/17 16:00 (Tylenol) 650 mg Q4H PRN PO 04/06/17 16:00 04/06/17 16:21 (Milk Of Magnesia Liq) 30 ml DAILY PRN PO 04/06/17 16:00 (Mag-Al Plus Susp Liq) 30 ml Q6H PRN PO 04/06/17 16:00 (Eliquis) 2.5 mg BID PO 04/06/17 21:00 04/06/17 21:55 (Abilify) 5 mg HS PO 04/06/17 21:00 04/06/17 21:55 (KlonoPIN) 0.5 mg Q12HR PO 04/06/17 21:00 Future Hold (Levaquin) 750 mg Q24H PO 04/06/17 17:00 04/06/17 17:00 (Prinivil) 5 mg DAILY PO 04/06/17 17:00 04/06/17 17:00 (Lithotabs) 300 mg TID PO 04/06/17 18:00 04/06/17 18:00 Family Psych History Denies Social History Patient was born and raised in [place], he lives alone in [place], he is unemployed, supported by Social Security, his highest level of education is high school Patient's Strengths (min. 2) Verbal and, communicative Physical Exam Patient not noted to be in acute distress, no gross motor abnormalities aside from noted right arm weakness, no tremors or EPS, no noted psychomotor retardation or agitation. Vital Signs Vital Signs Date Time Temp Pulse Resp B/P (MAP) Pulse Ox O2 Delivery O2 Flow Rate FiO2 04/07/17 06:22 78 18 146/85 (105) 96 04/06/17 18:25 98.1 I/O 04/07/17 04/07/17 04/08/17 08:00 16:00 00:00 Intake Total 960 ml Balance 960 ml Mental Status Examination Appearance: Disheveled Consciousness: Alert Orientation: Person, Place Speech: Unremarkable Language: Adequate Fund of Knowledge: Inadequate Attention and Concentration: Inadequate Memory: Impaired Mood: Other ("good") Affect: Anxious Thought Process & Associations: Loose associations Thought Content: Other Hallucination Type: None Delusion Type: None Suicidal Ideation: No Suicidal Plan: No Suicidal Intention: No Homicidal Ideation: No Homicidal Plan: No Homicidal Intention: No Insight: Poor Judgment: Poor Assessment & Plan Problem List: (1) Bipolar disorder, current episode mixed, severe, with psychotic features ICD Codes: F31.64 - Bipolar disorder, current episode mixed, severe, with psychotic features Assessment & Plan Estimated LOS: 5-7 days. Patient is a 11-year-old man who carries a diagnosis of bipolar disorder, schizoaffective disorder, multiple psychiatric hospitalizations, was presented to the ER due to shoulder pain was found to be acutely psychotic and manic and concerns of patient unable to care for self and he had been living in deprecatory conditions in the context of noncompliance with medications. Patient to continue lithium 300 mg by mouth 3 times a day as patient has had 2 or 3 days of dosing but will order lithium level tomorrow a.m. to assess lithium levels with adjustments as needed. Continue Abilify 5 mg by mouth daily. Continue recommendations as per primary medical team. Patient at this time requests discharge but will be petition for involuntary hospitalization due to concerns of patient inability to care for self due to his symptomatology at this time. We'll request second opinion. Discharge planning in progress Discharge Planning Patient to return back to his residence once psychiatrically stable. Joselito Holland MD Apr 07, 2017 08:31
--- NOTE | 2017-04-07 08:52 | PD.ORT.PN ---
Subjective Subjective Remarks pt has no complaints this morning transferred to inpatient psych medical unit, hx of Schizophrenia and Bipolar Objective Vitals Vital Signs Date Time Temp Pulse Resp B/P (MAP) Pulse Ox O2 Delivery O2 Flow Rate FiO2 04/07/17 06:22 78 18 146/85 (105) 96 04/06/17 18:25 98.1 95 20 143/80 (101) 95 04/06/17 17:21 20 04/06/17 15:36 98.1 97 18 138/74 (95) 100 I/O 04/06/17 04/06/17 04/06/17 04/07/17 04/07/17 04/07/17 07:00 15:00 23:00 07:00 15:00 23:00 Intake Total 2400 ml 960 ml Balance 2400 ml 960 ml Intake Oral 2400 ml 960 ml # Voids 5 3 Objective Remarks seen by Dr. Harmeet Harley R shoulder, wound vac in place, dressings dry, no erythema Assessment & Plan Assessment and Plan POD # 2 s/p R humerus I&D with application of wound vac IV abx per I.D. and medical continue of medical management of his psych disorder orthopedically stable Liya Anguiano Apr 07, 2017 08:52
[2017-04-07] MEDS: APIXABAN 2.5 MG TABLET PO SCH ×2 (08:58→20:55)
[2017-04-07] MEDS: LISINOPRIL 5 MG TAB PO SCH (08:58)
[2017-04-07] MEDS: LITHIUM CARBONATE 300 MG TAB PO SCH ×3 (08:58→18:00)
[2017-04-07 09:24] LABS: ANION GAP 8 MEQ/L (5-15); BICARBONATE 25.3 MEQ/L (21.0-32.0); BLOOD UREA NITROGEN 12 MG/DL (7-18); CHLORIDE 103 MEQ/L (98-107); GLOMERULAR FILTRATION RATE 126 ML/MIN (>89); POTASSIUM 4.2 MEQ/L (3.5-5.1); SODIUM (NA) 136 MEQ/L (136-145)
[2017-04-07 09:28] LABS: HDL CHOLESTEROL 50.4 MG/DL (40.0-60.0); LDL CHOLESTEROL 34 MG/DL (0-99)
[2017-04-07 12:51] LABS: HEMOGLOBIN A1b 1.1 %; HEMOGLOBIN Ao 81.4 %; HEMOGLOBIN F 1.4 %; HEMOGLOBIN LA1C 2.1 %; HEMOGLOBIN P3 3.9 %
[2017-04-07] MEDS: ACETAMINOPHEN 325 MG TAB PO PRN ×2 (13:41→20:56)
[2017-04-07] MEDS: LEVOFLOXACIN 750 MG TAB PO SCH (17:00)
--- NOTE | 2017-04-07 17:43 | PD.CONS ---
HPI Service [facility] Consult Requested By Primary Care Physician Kari Schulz Do, MD Diagnoses: History of Present Illness 61-year-old male with a history of hypertension, DVT of the right lower extremity, chronic right lower extremity cellulitis, paranoid schizophrenia, bipolar with history of psychosis who presented on 04/04 with right shoulder pain. Patient was found to have right arm abscess which underwent incision and drainage by orthopedics on 04/05 with cultures growing strep, not A,B,D. wound VAC was placed. Patient was discharged to inpatient psychiatry to continue by mouth Levaquin to complete treatment course. Patient states that pain is under control. 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 Review of Systems Except as stated in HPI: all other systems reviewed are Neg Past Family Social History Allergies: Coded Allergies: No Known Allergies (Verified Allergy, Unknown, 04/04/17) Past Medical History Schizophrenia, paranoid Bipolar disorder with recurrent episodes of psychosis History of colon cancer History DVT of the right lower extremity Hypertension Past Surgical History Patient had partial colectomy for colon cancer in 2003 IVC filter placement in April 2015. Incision and drainage of right arm abscess 04/05 Active Ordered Medications Current Medications Medications (Trade) Dose Ordered Sig/Cb Route Start Time Stop Time Status Last Admin (Ativan) 1 mg Q6H PRN PO 04/06/17 16:00 04/06/17 21:54 (Ativan Inj) 1 mg Q6H PRN IM 04/06/17 16:00 (Tylenol) 650 mg Q4H PRN PO 04/06/17 16:00 04/07/17 13:41 (Milk Of Magnesia Liq) 30 ml DAILY PRN PO 04/06/17 16:00 (Mag-Al Plus Susp Liq) 30 ml Q6H PRN PO 04/06/17 16:00 (Eliquis) 2.5 mg BID PO 04/06/17 21:00 04/07/17 08:58 (Abilify) 5 mg HS PO 04/06/17 21:00 04/06/17 21:55 (KlonoPIN) 0.5 mg Q12HR PO 04/06/17 21:00 Future Hold (Levaquin) 750 mg Q24H PO 04/06/17 17:00 04/06/17 17:00 (Prinivil) 5 mg DAILY PO 04/06/17 17:00 04/07/17 08:58 (Lithotabs) 300 mg TID PO 04/06/17 18:00 04/07/17 13:00 Family History Father from stroke at age 63 and Mother from "natural causes "at age 88 Social History Patient reports smoking one pack per week of cigarettes for the past 7 years Denies alcohol Denies any illicit drugs. Physical Exam Vital Signs Vital Signs Date Time Temp Pulse Resp B/P (MAP) Pulse Ox O2 Delivery O2 Flow Rate FiO2 04/07/17 06:22 78 18 146/85 (105) 96 04/06/17 18:25 98.1 95 20 143/80 (101) 95 Physical Exam GENERAL: This is a well-nourished, well-developed patient, appears somewhat agitated but comfortable. SKIN: No rashes, ecchymoses or lesions. Cool and dry. Wound VAC to right upper arm. Peripheral perfusion intact. HEAD: Atraumatic. Normocephalic. No temporal or scalp tenderness. EYES: Pupils equal round and reactive. Extraocular motions intact. No scleral icterus. No injection or drainage. ENT: Nose without bleeding, purulent drainage or septal hematoma. Throat without erythema, tonsillar hypertrophy or exudate. Uvula midline. Airway patent. NECK: Trachea midline. No JVD or lymphadenopathy. Supple, nontender, no meningeal signs. CARDIOVASCULAR: Regular rate and rhythm without murmurs, gallops, or rubs. RESPIRATORY: Clear to auscultation. Breath sounds equal bilaterally. No wheezes , rales, or rhonchi. GASTROINTESTINAL: Abdomen soft, non-tender, nondistended. No hepato-splenomegaly , or palpable masses. No guarding. MUSCULOSKELETAL: Extremities without clubbing, cyanosis, or edema. No joint tenderness, effusion, or edema noted. No calf tenderness. Negative Homans sign bilaterally. NEUROLOGICAL: Awake and alert. Cranial nerves II through XII intact. Motor and sensory grossly within normal limits. Five out of 5 muscle strength in all muscle groups. Pressured speech. Laboratory Laboratory Tests Test 04/07/17 08:05 Blood Urea Nitrogen 12 Creatinine 0.65 Random Glucose 82 Calcium Level 9.2 Sodium Level 136 Potassium Level 4.2 Chloride Level 103 Carbon Dioxide Level 25.3 Anion Gap 8 Estimat Glomerular Filtration Rate 126 Hemoglobin A1c 6.6 Triglycerides Level 78 Cholesterol Level 100 LDL Cholesterol 34 HDL Cholesterol 50.4 Cholesterol/HDL Ratio 1.98 Thyroid Stimulating Hormone 3rd Gen 2.990 Result Diagram: 04/07/17 0805 Assessment and Plan Assessment and Plan //Bipolar disorder with psychosis Management as per psychiatry. Appreciate assistance. //Right shoulder abscess/cellulitis = Status post I and D 04/[address] Licea with wound VAC placement. -Continues with wound VAC change Sunday, Sunday, Sunday. -Micro-from 04/05 wound culture grew strep. -Continue Levaquin. //Right lower extremity cellulitis. Chronic. Secondary to DVT. Keep leg elevated as able. //History of DVT. Continue Eliquis. Discussed Condition With Patient, nurse. Trino Maharaj MD Apr 07, 2017 17:43
[2017-04-07 18:00] VITALS: BP 152/86; PULSE 87; RESP 18; TEMP 97.7; O2SAT 96
[2017-04-07] MEDS: ARIPiprazole 5 MG TAB PO SCH (20:55)
[2017-04-07] MEDS: LORazepam 1 MG TAB PO PRN (20:55)
[2017-04-08] MEDS: ACETAMINOPHEN 325 MG TAB PO PRN ×3 (01:10→20:20)
[2017-04-08 05:59] VITALS: BP 143/88; PULSE 91; RESP 17; TEMP 97.8; O2SAT 96
--- NOTE | 2017-04-08 08:03 | HHI.PYPN ---
Subjective Remarks Patient seen for follow-up, chart reviewed. Discussion with nursing staff reported the patient yesterday afternoon was somewhat demanding and attention seeking but last evening patient had no behavioral issues. Patient found lying in hospital bed eating breakfast with only his left arm stating that his right arm feels weak and has pain which limits his movement. Patient states that he feels well, happy and that he is getting better as he is back on his lithium. Patient recalls that he had not taking his medication for a week and states that he knew he was not doing well which she brought himself to the hospital initially. Patient states having slept well, no problems eating and drinking, denies any racing thoughts denies any perceptual disturbances or delusions at this time. Labs were drawn this morning. Review of Systems Except as stated in HPI: all other systems reviewed are Neg Mental Status Examination Appearance: Disheveled Consciousness: Alert Orientation: Person, Place Speech: Unremarkable Language: Adequate Fund of Knowledge: Inadequate Attention and Concentration: Adequate Memory: Impaired Mood: Appropriate, Other ("good") Affect: Appropriate, Anxious (less so today) Thought Process & Associations: Loose associations Thought Content: Other Hallucination Type: None Delusion Type: None Suicidal Ideation: No Suicidal Plan: No Suicidal Intention: No Homicidal Ideation: No Homicidal Plan: No Homicidal Intention: No Insight: Poor Judgment: Poor Results Labs Labs reviewed. Test 04/07/17 08:05 04/08/17 07:36 Blood Urea Nitrogen 12 MG/DL Creatinine 0.65 MG/DL Random Glucose 82 MG/DL Calcium Level 9.2 MG/DL Sodium Level 136 MEQ/L Potassium Level 4.2 MEQ/L Chloride Level 103 MEQ/L Carbon Dioxide Level 25.3 MEQ/L Anion Gap 8 MEQ/L Estimat Glomerular Filtration Rate 126 ML/MIN Hemoglobin A1c 6.6 % Triglycerides Level 78 MG/DL Cholesterol Level 100 MG/DL LDL Cholesterol 34 MG/DL HDL Cholesterol 50.4 MG/DL Cholesterol/HDL Ratio 1.98 RATIO Thyroid Stimulating Hormone 3rd Gen 2.990 uIU/ML Vitals/IOs Vital Signs Date Time Temp Pulse Resp B/P (MAP) Pulse Ox O2 Delivery O2 Flow Rate FiO2 04/08/17 05:59 97.8 91 17 143/88 (106) 96 Intake and Output 04/08/17 04/08/17 04/08/17 07:59 15:59 23:59 Intake Total 960 ml Output Total 1700 ml Balance -740 ml Assessment & Plan Problem List: (1) Bipolar disorder, current episode mixed, severe, with psychotic features ICD Codes: F31.64 - Bipolar disorder, current episode mixed, severe, with psychotic features Assessment & Plan Patient at this time noted to be less disorganized with tangential, not noted to have pressured speech and other be slightly more organized with interview today. Patient reports tolerating treatment well but does endorse pain on his right arm were his wound VAC is. Patient states that he had planned to have home health services put in place by his primary care doctor which he has an appointment for on Sunday. Labs currently in process but his lithium level is subtherapeutic will increase and adjust dose. Continue to medications. Continue recommendations as per primary medical team. Discharge planning in progress. Justification for Cont. Inpt. At risk for further decompensation if at lower level of care Discharge Planning Patient is returning home with home health services if medically and psychiatrically stable. Joselito Holland MD Apr 08, 2017 08:03
[2017-04-08 08:13] LABS: BICARBONATE 26.4 MEQ/L (21.0-32.0)
[2017-04-08] MEDS: LITHIUM CARBONATE 300 MG TAB PO SCH ×3 (09:00→18:00)
[2017-04-08] MEDS: LORazepam 1 MG TAB PO PRN (09:46)
[2017-04-08] MEDS: APIXABAN 2.5 MG TABLET PO SCH ×2 (09:48→20:21)
[2017-04-08] MEDS: LISINOPRIL 5 MG TAB PO SCH (09:48)
--- NOTE | 2017-04-08 15:12 | PD.ID.CON ---
History of Present Illness Service ID Consult Requested By Reason for Consult Evaluation and Mment of Strep biceps muscle area abscess ? myositis. Primary Care Physician Kari Schulz Do, MD Diagnoses: History of Present Illness History is limited as patient does not appear reliable and no family available. Most of the history is obtained by review of medical records. is a 61 y/o CM with history of hypertension, DVT of the right lower extremity, chronic right lower extremity cellulitis, paranoid schizophrenia, bipolar with history of psychosis who presented on 04/04 with right shoulder pain. Patient was found to have right arm abscess which underwent incision and drainage by orthopedics on 04/05 with cultures growing strep, not A,B,D. Wound VAC was placed. Patient was discharged to inpatient psychiatry to continue by mouth Levaquin to complete treatment course. Patient states that pain is under control. 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 Patient was initially admitted at [facility] and was found to be in a disheveled state with feces and dirt on his skin and clothes and foul smell emanating from him from afar per review of initial Hepas notes. Patient denies IVDA but does not appear reliable. Patient has a prior h/o colon cancer with resection. GI pathology puts him at risk for Strep infections. ID consulted for evaluation and Mment of right arm abscess. Review of Systems ROS Limitations: Poor Historian Past Family Social History Allergies: Coded Allergies: No Known Allergies (Verified Allergy, Unknown, 04/04/17) Past Medical History Schizophrenia, paranoid Bipolar disorder with recurrent episodes of psychosis History of colon cancer History DVT of the right lower extremity Hypertension Past Surgical History Patient had partial colectomy for colon cancer in 2003 IVC filter placement in April 2015. Incision and drainage of right arm abscess 04/05 Reported Medications Reported Meds & Active Scripts Active Levaquin (Levofloxacin) 750 Mg Tablet 750 Mg PO DAILY [place]dwell Carbonate 300 Mg Tab 300 Mg PO TID Aripiprazole 5 Mg Tab 5 Mg PO HS Klonopin (Clonazepam) 0.5 Mg Tab 0.5 Mg PO Q12HR Reported Eliquis (Apixaban) 2.5 Mg Tab 2.5 Mg PO BID Lisinopril 5 Mg Tab 5 Mg PO DAILY Active Ordered Medications Current Medications Medications (Trade) Dose Ordered Sig/Cb Route Start Time Stop Time Status Last Admin (Ativan) 1 mg Q6H PRN PO 04/06/17 16:00 04/08/17 09:46 (Ativan Inj) 1 mg Q6H PRN IM 04/06/17 16:00 (Tylenol) 650 mg Q4H PRN PO 04/06/17 16:00 04/08/17 09:48 (Milk Of Magnesia Liq) 30 ml DAILY PRN PO 04/06/17 16:00 (Mag-Al Plus Susp Liq) 30 ml Q6H PRN PO 04/06/17 16:00 (Eliquis) 2.5 mg BID PO 04/06/17 21:00 04/08/17 09:48 (Abilify) 5 mg HS PO 04/06/17 21:00 04/07/17 20:55 (KlonoPIN) 0.5 mg Q12HR PO 04/06/17 21:00 Future Hold (Levaquin) 750 mg Q24H PO 04/06/17 17:00 04/07/17 17:00 (Prinivil) 5 mg DAILY PO 04/06/17 17:00 04/08/17 09:48 (Lithotabs) 300 mg TID PO 04/06/17 18:00 04/08/17 13:00 Family History could not be obtained. Social History Reports he lives in [place]. Reports smoking but denies alcohol. Denies IVDA but does not appear reliable. Physical Exam Vital Signs Vital Signs Date Time Temp Pulse Resp B/P (MAP) Pulse Ox O2 Delivery O2 Flow Rate FiO2 04/08/17 05:59 97.8 91 17 143/88 (106) 96 04/07/17 18:00 97.7 87 18 152/86 (108) 96 Physical Exam GENERAL: This is a well-nourished, well-developed patient, in no apparent distress. SKIN: No rashes, ecchymoses or lesions. Cool and dry. HEAD: Atraumatic. Normocephalic. No temporal or scalp tenderness. EYES: Pupils equal round and reactive. Extraocular motions intact. No scleral icterus. No injection or drainage. ENT: Nose without bleeding, purulent drainage or septal hematoma. Throat without erythema, tonsillar hypertrophy or exudate. Uvula midline. Airway patent. NECK: Trachea midline. No JVD or lymphadenopathy. Supple, nontender, no meningeal signs. CARDIOVASCULAR: Regular rate and rhythm without murmurs, gallops, or rubs. RESPIRATORY: Clear to auscultation. Breath sounds equal bilaterally. No wheezes , rales, or rhonchi. GASTROINTESTINAL: Abdomen soft, non-tender, nondistended. No hepato-splenomegaly , or palpable masses. No guarding. MUSCULOSKELETAL: Right arm with wound vac in area of biceps muscle. No surrounding erythema noted. NEUROLOGICAL: Awake and alert. Cranial nerves II through XII intact. Motor and sensory grossly within normal limits. Five out of 5 muscle strength in all muscle groups. Normal speech. Psych cooperative IV line sites with no e.o infection. Laboratory Laboratory Tests Test 04/08/17 07:36 Blood Urea Nitrogen 10 Creatinine 0.64 Random Glucose 98 Calcium Level 9.2 Sodium Level 134 Potassium Level 4.0 Chloride Level 100 Carbon Dioxide Level 26.4 Anion Gap 8 Estimat Glomerular Filtration Rate 128 Caldwell Level 0.4 Result Diagram: 04/08/17 0736 Imaging reviewed from prior inpatient admission. Assessment and Plan Assessment and Plan Strep not A,B,D biceps muscle abscess and myositis. Multiloculated abscess s.p drainage in OR and wound vac placement. Colon cancer s.p partial resection of colon. At risk for recurrence and also predisposes to disseminated Strep bacteremia and infection. Rule out endocarditis. Recs DC Levaquin Start Augmentin patient currently medically stable will assess based on ECHO findings. Follow blood cultures from 04/04/2017 till negative. Follow intra op cultures asked micro to work it up further Check Hepatitis panel Check HIV Antibody screen Check RPR Consult palliative care to help address POA and goals of therapy. If ECHO positive will need 6 weeks IV therapy. If GI lesions found recommend 6 weeks of IV therapy in addition to addressing GI lesion. Wound vac needed as well. Need PT/OT If pain persists consider adding anti-inflammatory agent and repeat imaging if Ortho agrees. d/w needs further workup to r/o endocarditis and see if GI is source. Other possibilities are IV drug abuse. I will be OOT from 04/09/2017 to 05/06/2016. Other ID MDs covering for me. Alondra Aaron MD Apr 08, 2017 15:12
--- NOTE | 2017-04-08 17:12 | HHI.PR ---
Subjective Remarks Patient seen today around 2 PM. Says he is feeling all right. Reports pain is controlled. Objective Vital Signs Date Time Temp Pulse Resp B/P (MAP) Pulse Ox O2 Delivery O2 Flow Rate FiO2 04/08/17 05:59 97.8 91 17 143/88 (106) 96 04/07/17 18:00 97.7 87 18 152/86 (108) 96 I/O 04/07/17 04/07/17 04/07/17 04/08/17 04/08/17 04/08/17 07:00 15:00 23:00 07:00 15:00 23:00 Intake Total 960 ml 480 ml 960 ml 1140 ml Output Total 800 ml 1700 ml Balance 960 ml -320 ml -740 ml 1140 ml Intake Oral 960 ml 480 ml 960 ml 1140 ml Output Urine Total 800 ml 1700 ml # Voids 3 Result Diagram: 04/08/17 0736 Objective Remarks GENERAL: patient sitting up in bed. Appears comfortable. SKIN: Warm and dry. HEAD: Normocephalic. EYES: No scleral icterus. No injection or drainage. NECK: Supple, trachea midline. No JVD. CARDIOVASCULAR: Regular rate and rhythm without murmurs, gallops, or rubs. RESPIRATORY: Breath sounds equal bilaterally. No accessory muscle use. GASTROINTESTINAL: Abdomen soft, non-tender, nondistended. MUSCULOSKELETAL: No cyanosis, or edema. right upper arm with wound VAC in place. BACK: Nontender without obvious deformity. No CVA tenderness. A/P Assessment and Plan //Bipolar disorder with psychosis Management as per psychiatry. Appreciate assistance. //Right shoulder abscess/cellulitis = Status post I and D 04/[address] Licea with wound VAC placement. -Continues with wound VAC change Sunday, Sunday, Sunday. -Micro-from 04/05 wound culture grew strep. -04/08. Discussed with infectious disease. Switch antibiotics. Consult GI for possible GI source for strep. Appreciate ID assistance. //Right lower extremity cellulitis. Chronic. Secondary to DVT. Keep leg elevated as able. //History of DVT. Continue Eliquis. Discharge Planning we will continue to follow. Trino Maharaj MD Apr 08, 2017 17:12
[2017-04-08 18:42] VITALS: BP 158/82; PULSE 90; RESP 17; TEMP 97.7; O2SAT 94
[2017-04-08] MEDS: AMOXICILLIN/CLAVULANATE K 875 MG TAB PO SCH (20:20)
[2017-04-08] MEDS: ARIPiprazole 5 MG TAB PO SCH (20:20)
[2017-04-09] MEDS: LORazepam 1 MG TAB PO PRN ×2 (02:23→21:04)
[2017-04-09] MEDS: ACETAMINOPHEN 325 MG TAB PO PRN ×3 (05:11→21:06)
[2017-04-09 06:00] VITALS: BP 134/74; PULSE 95; RESP 16; TEMP 97.5; O2SAT 93
--- NOTE | 2017-04-09 07:37 | HHI.PYPN ---
Mental Status Examination Appearance: Disheveled Consciousness: Alert Orientation: Person, Place Speech: Unremarkable Language: Adequate Fund of Knowledge: Inadequate Attention and Concentration: Adequate Memory: Impaired Mood: Appropriate, Other ("good") Affect: Appropriate, Anxious (less so today) Thought Process & Associations: Loose associations Thought Content: Other Hallucination Type: None Delusion Type: None Suicidal Ideation: No Suicidal Plan: No Suicidal Intention: No Homicidal Ideation: No Homicidal Plan: No Homicidal Intention: No Insight: Poor Judgment: Poor Results Labs Test 04/08/17 07:36 Blood Urea Nitrogen 10 MG/DL Creatinine 0.64 MG/DL Random Glucose 98 MG/DL Calcium Level 9.2 MG/DL Sodium Level 134 MEQ/L Potassium Level 4.0 MEQ/L Chloride Level 100 MEQ/L Carbon Dioxide Level 26.4 MEQ/L Anion Gap 8 MEQ/L Estimat Glomerular Filtration Rate 128 ML/MIN Salix Level 0.4 MEQ/L Vitals/IOs Vital Signs Date Time Temp Pulse Resp B/P (MAP) Pulse Ox O2 Delivery O2 Flow Rate FiO2 04/09/17 06:00 97.5 95 16 134/74 (94) 93 Intake and Output 04/09/17 04/09/17 04/10/17 08:00 16:00 00:00 Intake Total 480 ml Output Total 800 ml Balance -320 ml Assessment & Plan Problem List: (1) Bipolar disorder, current episode mixed, severe, with psychotic features ICD Codes: F31.64 - Bipolar disorder, current episode mixed, severe, with psychotic features Assessment & Plan: Will order psychiatric consult for second opinion to continue involuntary admission. Will increase Salix to 600 mg bid. Brief supportive psychotherapy and psychoeducation provided. Assessment & Plan Estimated LOS: days Justification for Cont. Inpt. Patient continues to be acutely manic needs to continue his psychiatric hospitalization for stabilization and also for safety. Trent Franco MD Apr 09, 2017 07:36
[2017-04-09] MEDS: LISINOPRIL 5 MG TAB PO SCH (08:25)
[2017-04-09] MEDS: APIXABAN 2.5 MG TABLET PO SCH (08:25)
[2017-04-09] MEDS: AMOXICILLIN/CLAVULANATE K 875 MG TAB PO SCH ×2 (08:26→21:04)
[2017-04-09] MEDS: LITHIUM CARBONATE 300 MG TAB PO SCH ×2 (08:26→21:05)
--- NOTE | 2017-04-09 09:20 | HHI.PYPN ---
Subjective Remarks Patient was seen today for psychiatric reevaluation. Chart was reviewed. Case was discussed with nursing charge, also with weekend Rounder Dr. Holland. The interview the patient today seems to be more engageable in a conversation, he reports feeling better, been taking his medication, no significant side effects reported. He is fully oriented 3, no fluctuation of consciousness, attention deficit. Still talkative, at times disorganized and delusional. 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 No agitation or aggressive behavior reported. She has been mostly calm and cooperative. Review of Systems Psychiatric: COMPLAINS OF: Delusions Except as stated in HPI: all other systems reviewed are Neg Mental Status Examination Appearance: Disheveled Consciousness: Alert Orientation: x4 Speech: Unremarkable Language: Adequate Fund of Knowledge: Inadequate Attention and Concentration: Adequate Memory: Unremarkable Mood: Other ("good") Affect: Anxious (less so today) Thought Process & Associations: Circumstantial Thought Content: Other Hallucination Type: None Delusion Type: None Suicidal Ideation: No Suicidal Plan: No Suicidal Intention: No Homicidal Ideation: No Homicidal Plan: No Homicidal Intention: No Insight: Fair Judgment: Impulsive Results Vitals/IOs Vital Signs Date Time Temp Pulse Resp B/P (MAP) Pulse Ox O2 Delivery O2 Flow Rate FiO2 04/09/17 06:00 97.5 95 16 134/74 (94) 93 Intake and Output 04/09/17 04/09/17 04/10/17 08:00 16:00 00:00 Intake Total 480 ml Output Total 800 ml Balance -320 ml Assessment & Plan Problem List: (1) Bipolar disorder, current episode mixed, severe, with psychotic features ICD Codes: F31.64 - Bipolar disorder, current episode mixed, severe, with psychotic features Assessment & Plan: She continues to be acutely manic. Increase lithium to 600 mg twice a day. [place] levels tomorrow. Supportive psychotherapy and psychoeducation provided. Assessment & Plan Estimated LOS: days Justification for Cont. Inpt. Patient acutely manic, he needs to continue psychiatric hospitalization for stabilization. Trent Franco MD Apr 09, 2017 09:20
--- NOTE | 2017-04-09 11:11 | PD.CONS ---
Consult Service Palliative Care . Consult Requested By Dr. Nikolay Aaron . Primary Care Physician Kari Schulz Do, MD . Reason for Consultation a. To assist with evaluation and management of symptoms including: Pain, Swelling, Debility b. To assist medical decision maker(s) with: better understanding of current medical conditions; weighing benefits/burdens of medical treatment options; making medical treatment decisions. . HPI History of Present Illness Mr. Felix is a 61 year old male with a history of hypertension, DVT of the right lower extremity, chronic right lower extremity cellulitis, paranoid schizophrenia, bipolar with recurrent episodes of psychosis and a history of colon cancer status post resection and chemotherapy who presented to [facility] ED on 04/04/17 with complaints of right shoulder pain and right upper extremity swelling x 5 days. Pain is rated 9 out of 10 which is better when he keeps his arm straight; he states he is unable to use his right hand. Additional diagnostic data includes: * Pulse 111, respirations 20, BP 134/83, oral temperature 98.1, oxygen saturation 96% on room air * WBC: 8.3, hemoglobin 11.1, hematocrit 33.5, platelets 469, neutrophils 68.0% * Sodium: 131, potassium 4.1, chloride 98, carbon dioxide 24.6, glucose 104, calcium 8.6 * BUN: 11, creatinine 0.64, GFR 128 * Total bilirubin: 0.4, AST 27, ALT 26, alkaline phosphatase 105 * C-reactive protein: 6.30 * Total protein: 8.9, albumin 2.3 * PT: 15.2, INR 1.5, APTT 29.5 * Negative urinalysis * Shoulder x-ray revealed degenerative changes in the glenohumeral joint * Ultrasound of the right upper extremity showed no evidence of deep venous thrombosis * CT of the humerus findings are characteristic of multilocular abscess involving the biceps muscle, no evidence of osteomyelitis * CT of the forearm showed cellulitis at the level of the elbow but no evidence of abscess osteomyelitis * [place]: <0.1 Patient was admitted for further evaluation and medical management. Orthopedics was consulted and the patient was transferred to [facility]. Of note, the patient has an extensive psychiatric history that includes schizophrenia, psychosis and bipolar disorder. His most recent admission was approximately 2 months ago when he was treated by psychiatry with Abilify and [place], however his lithium level is <0.1 which would indicate the patient was not taking his medication. Psychiatry was consulted and recommends psychiatric admission for stabilization and safety once he is medically stable. Dr. Harley, orthopedics, evaluated the patient who was taken to the OR for irrigation and debridement of a large loculated abscess involving the right proximal arm along the region of the biceps with placement of wound VAC. Cultures were obtained-preliminary results + Strep C. Patient receiving IV Zosyn and Vancomycin. Fungal and mycobacterial cultures pending. Patient was transferred to [facility] on 04/07/2017. ID was consulted for recommendations on management of right arm abscess. Levaquin was discontinued, and the patient was started on Augmentin. Patient denies IVDA but does not appear reliable, echocardiogram pending. Patient does have a history of colon cancer with resection, and pathology puts him at his first strep infections. Will check hepatitis panel, HIV antibody screen and RPR. If the echocardiogram is positive for a GI lesion is found (in addition to addressing the lesion), recommendations for 6 weeks of IV therapy If ECHO positive will need 6 weeks IV therapy. GI consult pending. Awaiting results of CEA level and CT abdomen/pelvis to be done later today. Palliative Care was consulted to assist with symptom management and to discuss with the patient/family the benefits and burdens of his current illnesses and the options regarding future care. . Function/Cognitive Trajectory Patient has an extensive history of mental illness with recurrent hospitalizations, most recent admission was approximately 2 months ago when he was treated by psychiatry with Abilify and [place]. There is a history of noncompliance with medications. When compliant, the patient is independent with self-care and ADLs, driving his automobile and attending to IADLs. Recently the patient's ability to care for himself was limited by his right shoulder pain. Upon presentation to the ED, patient was disheveled and covered and what he described as diarrhea dirt. Review of Systems Constitutional: DENIES: Fever, Change in appetite, Pain Cardiovascular: DENIES: Lower Extremity Edema Gastrointestinal: DENIES: Constipation, Diarrhea, Nausea, Vomiting Musculoskeletal: COMPLAINS OF: Decreased range of motion (RUE) Neurologic: COMPLAINS OF: Localized weakness (RUE) Past Family Social History Coded Allergies: No Known Allergies (Verified Allergy, Unknown, 04/04/17) Past Medical History Schizophrenia, paranoid Bipolar disorder with recurrent episodes of psychosis History of colon cancer status post resection and chemotherapy in 2003 History of recurrent DVT History of chronic swelling and chronic venous stasis changes to the right lower extremity Hypertension Chronic anticoagulation with Eliquis Anxiety depression History of cellulitis lower extremities . Past Surgical History Left EYE enucleation History of colon cancer resection Left eye prosthesis status post enucleation Vasectomy IVC filter placement . Reported Medications Eliquis (Apixaban) 2.5 Mg Tab 2.5 Mg PO BID Lisinopril 5 Mg Tab 5 Mg PO DAILY . Current Medications Medications (Trade) Dose Ordered Sig/Cb Route Start Time Stop Time Status Last Admin (Ativan) 1 mg Q6H PRN PO 04/06/17 16:00 04/09/17 02:23 (Ativan Inj) 1 mg Q6H PRN IM 04/06/17 16:00 (Tylenol) 650 mg Q4H PRN PO 04/06/17 16:00 04/09/17 05:11 (Milk Of Magnesia Liq) 30 ml DAILY PRN PO 04/06/17 16:00 (Mag-Al Plus Susp Liq) 30 ml Q6H PRN PO 04/06/17 16:00 (Eliquis) 2.5 mg BID PO 04/06/17 21:00 04/09/17 08:25 (Abilify) 5 mg HS PO 04/06/17 21:00 04/08/17 20:20 (KlonoPIN) 0.5 mg Q12HR PO 04/06/17 21:00 Future Hold (Prinivil) 5 mg DAILY PO 04/06/17 17:00 04/09/17 08:25 (Augmentin) 875 mg Q12HR PO 04/08/17 21:00 04/09/17 08:26 (Lithotabs) 600 mg BID PO 04/09/17 09:00 04/09/17 08:26 Family History Father from stroke at age 63 Mother from "natural causes "at age 88 . Substance Use Tobacco: Patient reports smoking 1PPD since the age of 12. Alcohol: None known Prescription med abuse: None known Illicits: None known . Psychosocial History Patient was born in [place], [place]. Patient states he has 3 children and 9 grand-daughters. Patient reportedly lives alone in [facility]. He is unemployed, supported by Social Security. He previously worked in [place]. His highest level of education is high school. . Spiritual/Cultural Factors Denominational sara . Date completed: 04/09/2017 . Health Care Surrogate(s): Patient's sister, Brenda Avalos, is designated as the healthcare surrogate decision maker. . Documented care wishes: No documented of care wishes are available, however the patient states he has completed a living will with [facility]. He does not them to be contacted at this time. . Today's verbally stated goals: Patient verbalizes aggressive goals. He describes a detailed plan stating he will live at the [facility] in [place] and have home health care nurses coming to see him regularly. Patient states he has money to pay for what he needs, and he has his own car that was left in the [facility] ED parking lot. He plans to follow up with his PCP and the orthopedic as directed. . Family/friends goals: No family/friends are present at time of exam, and Mr. Felix does not want family members contacted at this time. . Ethical and Legal Issues No known ethical or legal issues at this time. . Physical Exam Vital Signs Date Time Temp Pulse Resp B/P (MAP) Pulse Ox O2 Delivery O2 Flow Rate FiO2 04/09/17 06:00 97.5 95 16 134/74 (94) 93 04/08/17 18:42 97.7 90 17 158/82 (107) 94 . Exam CONSTITUTIONAL/GENERAL: This is an adequately nourished patient, in no apparent distress. TUBES/LINES/DRAINS: PIV, wound VAC SKIN: Wound VAC on right upper extremity to continuous suction. Skin temperature appropriate. Not diaphoretic. HEAD: Atraumatic. Normocephalic. EYES: Pupils equal and round and reactive. Extraocular motions intact. No scleral icterus. No injection or drainage. Fundi not examined. ENT: Hearing grossly normal. Nose without bleeding or purulent drainage. NECK: Trachea midline. Supple, nontender. No palpable thyroid enlargement or nodularity. CARDIOVASCULAR: Regular rate and rhythm without murmurs, gallops, or rubs. No JVD. Peripheral pulses symmetric. RESPIRATORY/CHEST: Symmetric, unlabored respirations. Clear to auscultation. Breath sounds equal bilaterally. No wheezes, rales, or rhonchi. GASTROINTESTINAL: Abdomen soft, non-tender, nondistended.No guarding. Bowel sounds present. GENITOURINARY: Without palpable bladder distension. MUSCULOSKELETAL: Extremities without clubbing, cyanosis, or edema. No mottling or clubbing. LYMPHATICS: No palpable cervical or supraclavicular adenopathy. NEUROLOGICAL: Awake and alert. Follows commands. Cognitively sharp. Moves all extremities. PSYCHIATRIC: No obvious anxiety/depression. No apparent hallucinations or other psychotic thought process. . Diagnostic Tests Laboratory Laboratory Tests Test 04/07/17 08:05 04/08/17 07:36 Blood Urea Nitrogen 12 MG/DL (7-18) 10 MG/DL (7-18) Creatinine 0.65 MG/DL (0.60-1.30) 0.64 MG/DL (0.60-1.30) Random Glucose 82 MG/DL (74-106) 98 MG/DL (74-106) Calcium Level 9.2 MG/DL (8.5-10.1) 9.2 MG/DL (8.5-10.1) Sodium Level 136 MEQ/L (136-145) 134 MEQ/L (136-145) Potassium Level 4.2 MEQ/L (3.5-5.1) 4.0 MEQ/L (3.5-5.1) Chloride Level 103 MEQ/L (98-107) 100 MEQ/L (98-107) Carbon Dioxide Level 25.3 MEQ/L (21.0-32.0) 26.4 MEQ/L (21.0-32.0) Anion Gap 8 MEQ/L (5-15) 8 MEQ/L (5-15) Estimat Glomerular Filtration Rate 126 ML/MIN (>89) 128 ML/MIN (>89) Hemoglobin A1c 6.6 % (4.3-6.0) Triglycerides Level 78 MG/DL (42-150) Cholesterol Level 100 MG/DL (120-200) LDL Cholesterol 34 MG/DL (0-99) HDL Cholesterol 50.4 MG/DL (40.0-60.0) Cholesterol/HDL Ratio 1.98 RATIO Thyroid Stimulating Hormone 3rd Gen 2.990 uIU/ML (0.358-3.740) [place] Level 0.4 MEQ/L (0.5-1.5) . Result Diagram: 04/08/17 0736 Patient/Family Conference Present at Family Conference: Met with patient at bedside. Also present Palliative Care CERTIFIED ATHLETIC TRAINER, Kaylie Senior. . Family Conference Location: Bedside Issues Discussed: * Palliative care role, purpose, approach * Additional medical, psychosocial, and spiritual history * Patients general health, functional status, and cognitive changes in the months leading up to the current hospitalization * Patient/family understanding of the current medical problems * Patient/family understanding of prognosis * Patients goals of care as best understood from advance directives and/or conversations and/or values * Current medical treatment options and benefits/burdens of those options * Likely scenarios comparing ongoing aggressive care with a transition to comfort measures only * Questions answered to the best of my ability * Palliative care contact information provided Assessment and Plan Disease Oriented Problem List: (1) Recurrent deep vein thrombosis (DVT) (2) Recurrent cellulitis (3) Hypertension (4) bipolar disorder (5) Schizophrenia, paranoid, chronic (6) Hx of malignant neoplasm of colon Comment: Status post resection and chemotherapy in 2003 (7) Peripheral vascular disease Symptom Scale: (1) Pain 0-10 Scale: 0 (2) Debility 0-10 Scale: Unable to quantify (3) Swelling 0-10 Scale: Unable to quantify Pertinent Non-Medical Issues Psychosocial: Patient was born in [place], [place]. Patient states he has 3 children and 9 grand-daughters. Patient reportedly lives alone in [facility]. He is unemployed, supported by Social Security. He previously worked in [place]. His highest level of education is high school. Spiritual: Denominational sara Legal: On exam today the patient showed insight and judgment related to his current medical condition, however his capacity is variable. Patient's sister, Brenda Avalos, is designated as the healthcare surrogate decision maker. Ethical issues impacting care: No known ethical issues at this time. . Important Contacts Megan Avalos, sister: [phone] . Prognosis Mr. Felix is a 61-year-old man with a complex medical history. Most significant is his extensive psychiatric history with multiple hospitalizations , most recent hospitalization was approximately 2 months ago when he was treated by psychiatry with [place] and Abilify. It appears the patient has a history of medical non-compliance which negatively affects the patient's overall prognosis. Given his advanced age, multiple comorbid conditions and medical noncompliance, the patient is high risk for future hospitalizations and setbacks. . Code Status: Full Code Plan * FULL CODE * Decision-making: On exam today the patient showed insight and judgment related to his current medical condition, however his capacity is variable. Patient's sister, Brenda Avalos, is designated as the healthcare surrogate decision maker. * Goals: Patient verbalizes aggressive goals. He describes a detailed plan stating he will live at the [facility] in [place] and have home health care nurses coming to see him regularly. Patient states he has money to pay for what he needs, and he has his own car that was left in the [facility] ED parking lot. He plans to follow up with his PCP and the orthopedic as directed. * Discussed patient with Dr. Franco and Lisa Bose [facility] * Per conversation with Dr. Franco and Palliative care CERTIFIED ATHLETIC TRAINER ( Kaylie Cook) on 04/09/2017, patient is capacitated to make his own decision related to his medical conditions. * Symptom management-pain: Patient reporting severe pain in his right should at admission which has since resolved. Patient denies pain on exam. PRN acetaminophen is available for pain; 2 doses have been administered in the past 24 hours. * Symptom management-debility: When compliant with his psychiatric medications, the patient is independent with self-care and ADLs, driving his automobile and attending to IADLs. Recently the patient's ability to care for himself was limited by his right shoulder pain. Upon presentation to the ED, patient was disheveled and covered and what he described as diarrhea dirt. OT following. * Symptom management-swelling: Right upper arm swelling has decreased status post I&D with wound VAC in place. No recommendations at this time. * Palliative care will continue to follow this patient throughout his hospitalization to establish trust, assist with symptom management and clarification of medical treatment goals. * Palliative care will continue to follow this patient throughout his/her hospitaization to build rapport, assist with symptom management and goal clarification. . Thank you for the opportunity to participate in the care of Mr. Felix. . Attestation To help prompt me to consider important information that might be impacting today's encounter and assessment, information from prior notes written by myself or my colleagues may have been "brought forward" into today's note. My signature on this note, however, is an attestation that I personally performed the exam, history, and/or decision-making noted today, and, unless otherwise indicated, the interactions with patient, family, and staff as well as the review of records all occurred today. I also attest that the listed assessment and stated plan reflect my best clinical judgment today based on the combination of historical information, prior notes, and today's exam/ interactions. When time spent is documented, it refers only to time spent today by the signer, or if indicated, combined time spent today by collaborating physician/nurse practitioner. . Mckenna Betancourt Apr 09, 2017 11:05
--- NOTE | 2017-04-09 11:54 | PD.CONS ---
HPI History of Present Illness This is a 61 year old with rt. shoulder pain and rt. arm cellulitis. Patient had an I&D on 04 05 which showed strep not a B or D . Dr. Cheng has done an ID consult and has the patient on Augmentin by mouth. Patient has significant history of colon cancer; concern per ID is whether this strep bacteremia has anything to do with history of colonic cancer. Patient is currently being treated on the psychiatric [place] for bipolar disorder with mixed psychotic features and has been noted to be in his manic phase. He is currently receiving his medical management and according to the staff may possibly be discharged tomorrow on 04-10-17. Currently patient denies any nausea, vomiting , diarrhea, or constipation. Last bowel movement was today brown, formed. Patient also states he has a 2 week follow-up at [facility] for his cancer, physician's name is Dr. Pearce. No current CT scan of abdomen or pelvis for review noted ([place]) PFSH Past Medical History Schizophrenia, paranoid Bipolar disorder with recurrent episodes of psychosis History of colon cancer status post resection and chemotherapy in 2003 History of recurrent DVT History of chronic swelling and chronic venous stasis changes to the right lower extremity Hypertension Chronic anticoagulation with Eliquis Anxiety depression History of cellulitis lower extremities .l Past Surgical History Left EYE enucleation History of colon cancer resection Left eye prosthesis status post enucleation Vasectomy IVC filter placement I&D right arm, recent . ([place]) Coded Allergies: No Known Allergies (Verified Allergy, Unknown, 04/04/17) Medications Administered Medications Medications (Trade) Dose Ordered Sig/Cb Route PRN Reason Start Time Stop Time Status Last Admin Dose Admin Lorazepam (Ativan) 1 mg Q6H PRN PO MODERATE TO SEVERE ANXIETY 04/06/17 16:00 04/09/17 02:23 Acetaminophen (Tylenol) 650 mg Q4H PRN PO Pain 1-5 or Temp >101F 04/06/17 16:00 04/09/17 05:11 Apixaban (Eliquis) 2.5 mg BID PO 04/06/17 21:00 04/09/17 08:25 Aripiprazole (Abilify) 5 mg HS PO 04/06/17 21:00 04/08/17 20:20 Lisinopril (Prinivil) 5 mg DAILY PO 04/06/17 17:00 04/09/17 08:25 Amoxicillin/ Clavulanate Potassium (Augmentin) 875 mg Q12HR PO 04/08/17 21:00 04/09/17 08:26 [place] Carbonate (Lithotabs) 600 mg BID PO 04/09/17 09:00 04/09/17 08:26 Family History Father from stroke at age 63 Mother from "natural causes "at age 88 . Social History No tobacco, EtOH or illicit drugs noted ([place]) Review of Systems Psychiatric: COMPLAINS OF: Anxiety (occasional) ([place]) GI Exam Vitals I&O Vital Signs Date Time Temp Pulse Resp B/P (MAP) Pulse Ox O2 Delivery O2 Flow Rate FiO2 04/09/17 06:00 97.5 95 16 134/74 (94) 93 04/08/17 18:42 97.7 90 17 158/82 (107) 94 I/O 04/08/17 04/08/17 04/08/17 04/09/17 04/09/17 04/09/17 07:00 15:00 23:00 07:00 15:00 23:00 Intake Total 960 ml 1140 ml 2580 ml 1680 ml 480 ml Output Total 1700 ml 1225 ml 2550 ml Balance -740 ml 1140 ml 1355 ml -870 ml 480 ml Intake Oral 960 ml 1140 ml 2580 ml 1680 ml 480 ml Output Urine Total 1700 ml 1225 ml 2550 ml Laboratory Test 04/09/17 09:21 Physical Examination HEENT: Pupils round and reactive to light; normocephalic; atraumatic; no jaundice. NECK: Neck is supple, no JVD, no lymphadenopathy. CHEST: Chest is clear to auscultation and percussion. CARDIAC: Regular rate and rhythm with no murmur gallop or rubs. ABDOMEN: Round, Soft, nondistended, nontender; no hepatosplenomegaly; bowel sounds are present in all four quadrants. EXTREMITIES: No clubbing, cyanosis, or edema. 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: No focal deficits; alert and seems to answer questions appropriately, speech is clear ([place]) Assessment and Plan Assessment: (1) Bacterial infection due to Streptococcus ICD Codes: A49.1 - Streptococcal infection, unspecified site (2) Hx of malignant neoplasm of colon ICD Codes: Z85.038 - Personal history of other malignant neoplasm of large intestine (3) DVT (deep venous thrombosis) ICD Codes: I82.409 - Acute embolism and thrombosis of unspecified deep veins of unspecified lower extremity Status: Acute (4) Schizophrenia, paranoid, chronic ICD Codes: F20.0 - Paranoid schizophrenia Status: Acute Plan History of colon cancer, patient denies any symptoms of nausea, vomiting, diarrhea, constipation or blood loss. There is no CT scan noted for comparison since 2009. Abdomen nondistended nontender, normal BM formed stool today. Right shoulder/ cellulitis with strep bacteremia. Questionable concern of strep and history of colonic cancer. Are they related? History of paranoid schizophrenia and bipolar disorder, currently being managed per the medical team and the psych team. There is a possibility patient could go home from the psych perspective tomorrow. Plan CT scan abdomen/pelvis today for comparison since 2009. This will give us a baseline for any abnormalities seen in his colon, i.e. metastasis. Labs CEA today Colonoscopy is an option in 2 days from now since patient is on Eliquis. Our options are hold Eliquis today, and plan colonoscopy on Sunday, or consider doing colonoscopy as an outpatient. This needs to be reviewed by his attending for the plan of care needed. Patient is offering information that he has follow-up with Dr. Pearce at [facility] in 2 weeks for his cancer. If this is a true fact this is also an option for his follow-up. Gastroenterology is available to do any option attendings feel is the best for his situation, 1. colonoscopy Sunday after Eliquis stopped 2. Outpatient colonoscopy within the next week or 2 3. Follow up at [facility] in 2 weeks. Plan of care will be based on findings of CEA lab, CT scan to be done today. Patient was seen by myself and Dr. Machado, case has been discussed, note has been initiated on his behalf ([place]) Physician Comments Patient seen and examined Agree with above Continue with current supportive care Monitor labs CEA is unremarkable CT of the abdomen pending The plan will be to pursue a colonoscopy on Sunday Larrypierre is on hold tomorrow the patient will be prepped (Cain De Jesus MD) [place] Apr 09, 2017 11:54 Cain De Jesus MD Apr 09, 2017 19:27
--- NOTE | 2017-04-09 13:27 | HHI.PR ---
Subjective Remarks Patient says he is feeling all right. Denies any chest pain or shortness of breath. Reports pain is controlled. Objective Vital Signs Date Time Temp Pulse Resp B/P (MAP) Pulse Ox O2 Delivery O2 Flow Rate FiO2 04/09/17 06:00 97.5 95 16 134/74 (94) 93 04/08/17 18:42 97.7 90 17 158/82 (107) 94 I/O 04/08/17 04/08/17 04/08/17 04/09/17 04/09/17 04/09/17 07:00 15:00 23:00 07:00 15:00 23:00 Intake Total 960 ml 1140 ml 2580 ml 1680 ml 840 ml Output Total 1700 ml 1225 ml 2550 ml Balance -740 ml 1140 ml 1355 ml -870 ml 840 ml Intake Oral 960 ml 1140 ml 2580 ml 1680 ml 840 ml Output Urine Total 1700 ml 1225 ml 2550 ml Result Diagram: 04/08/17 0736 Objective Remarks GENERAL: patient sitting up in bed. Appears comfortable. No change on exam today. SKIN: Warm and dry. HEAD: Normocephalic. EYES: No scleral icterus. No injection or drainage. NECK: Supple, trachea midline. No JVD. CARDIOVASCULAR: Regular rate and rhythm without murmurs, gallops, or rubs. RESPIRATORY: Breath sounds equal bilaterally. No accessory muscle use. GASTROINTESTINAL: Abdomen soft, non-tender, nondistended. MUSCULOSKELETAL: No cyanosis, or edema. right upper arm with wound VAC in place. BACK: Nontender without obvious deformity. No CVA tenderness. A/P Assessment and Plan //Bipolar disorder with psychosis Management as per psychiatry. Appreciate assistance. //Right shoulder abscess/cellulitis = Status post I and D 04/[address] Licea with wound VAC placement. -Continues with wound VAC change Sunday, Sunday, Sunday. -Micro-from 04/05 wound culture grew strep. -04/08. Discussed with infectious disease. Switch antibiotics. Consult GI for possible GI source for strep. Appreciate ID assistance. = 04/09. Awaiting CT abdomen today to rule out GI source for strep infection. Eliquis will be held for now as patient may be able to have colonoscopy on Sunday. Further labs ordered by ID are pending. //Right lower extremity cellulitis. Chronic. Secondary to DVT. Keep leg elevated as able. //History of DVT. Hold Eliquis for possible colonoscopy on Sunday.. Discharge Planning we will continue to follow. Trino Maharaj MD Apr 09, 2017 13:27
--- NOTE | 2017-04-09 15:27 | ECHRPT ---
Indication: endocarditis CONCLUSIONS The left ventricular systolic function is normal with an estimated ejection fraction in the range of 65-70%. Normal left ventricular size. Wall thickness is measured at the upper limits of normal. No regional wall motion abnormalities are present. BP: 134 / 74 HR: 95 Rhythm: MEASUREMENTS (Male / Female) Normal Values Technical Quality: 2D ECHO LV Diastolic Diameter PLAX 4.9 cm 4.2 - 5.9 / 3.9 - 5.3 cm LV Systolic Diameter PLAX 2.9 cm IVS Diastolic Thickness 1.2 cm 0.6 - 1.0 / 0.6 - 0.9 cm LVPW Diastolic Thickness 1.2 cm 0.6 - 1.0 / 0.6 - 0.9 cm LV Relative Wall Thickness 0.5 RV Internal Dim ED PLAX 2.6 cm LVOT Diameter 1.8 cm LA Systolic Diameter LX 2.9 cm 3.0 - 4.0 / 2.7 - 3.8 cm LV Ejection Fraction MOD 4C 68.6 % LV Cardiac Index MOD 4C 2971.7 cm/minm LV Ejection Fraction 4C AL 70.7 % LV Cardiac Index 4C AL 3158.1 cm/minm M-MODE Aortic Root Diameter MM 2.9 cm AV Cusp Separation MM 2.3 cm DOPPLER AV Peak Velocity 122.0 cm/s AV Peak Gradient 6.0 mmHg LVOT Peak Velocity 95.8 cm/s LVOT Peak Gradient 3.7 mmHg AV Area Cont Eq pk 2.0 cm MV Area PHT 2.6 cm Mitral E Point Velocity 61.2 cm/s Mitral A Point Velocity 66.1 cm/s Mitral E to A Ratio 0.9 PV Peak Velocity 84.2 cm/s PV Peak Gradient 2.8 mmHg FINDINGS LEFT VENTRICLE The left ventricular systolic function is normal with an estimated ejection fraction in the range of 65-70%. Normal left ventricular size. Wall thickness is measured at the upper limits of normal. No regional wall motion abnormalities are present. RIGHT VENTRICLE Normal right ventricular size and systolic function. LEFT ATRIUM The left atrial size is normal. RIGHT ATRIUM The right atrial size is normal. ATRIAL SEPTUM Normal atrial septal thickness without atrial level shunting by limited color doppler interrogation. AORTA The aortic root and proximal ascending aorta are normal in size on limited imaging. MITRAL VALVE Structurally normal mitral valve. No mitral valve stenosis or regurgitation. AORTIC VALVE Trileaflet aortic valve. No aortic valve stenosis or regurgitation. TRICUSPID VALVE PULMONARY VALVE The pulmonary valve is not well visualized. VESSELS The inferior vena cava is normal in size. PERICARDIUM No pericardial effusion. Mayank Roy MD (Electronically Signed) Final Date:09 April 2017 15:26
--- NOTE | 2017-04-09 17:13 | PD.WCN.NOT ---
Neg Pressure Wound Therapy Wound Location Wound Location: R upper arm Wound Description Periwound appearance: Unremarkable Settings Suction: 125 mmHg, Continuous Intensity: Low Other Information: Windowpaned Foam type: Black Number of pieces: 1 Additonal Information Patient seen on [address] [place] [address] unit. ELY Garcia requesting assistance with VAC malfunction. Dressing was removed to reveal Sensi trac pad sensors were not in contact with foam. Cleansed wound to R upper arm with normal saline. Skin prep was applied to periwound before window paning wound with VAC drape.Applied 1 piece of granufoam to wound bed. Sensi trac pad was then placed on foam with sensors in contact with granufoam all foam was sealed with VAC drape. Machine was suctioning at 125 mm/hg low continuous suction with low leak rate.Call placed to call center for [facility] [place] to notify Doctor of VAC dressing change and obtain orders for wound VAC dressing changes. Maria Teresa Richardson [facility] Apr 09, 2017 17:13
[2017-04-09 18:00] VITALS: BP 128/77; PULSE 95; RESP 18; TEMP 97.6; O2SAT 95
--- NOTE | 2017-04-09 20:03 | PD.PSY.CON ---
Provisional Diagnosis Admission Date Apr 06, 2017 at 14:58 [place]. Bipolar disorder History of Present Illness Service Psychiatry Consult Requested By Dr. Franco Reason for Consult Second opinion Primary Care Physician Kari Schulz Do, MD HPI Patient is a 61-year-old man, single, domiciled alone, retired, with a past psychiatric history of bipolar disorder, schizoaffective disorder, multiple psychiatric hospitalizations, last time being December 2016 he was discharged due to [place] [facility], no previous suicide attempts, past medical history of hypertension, DVT of the right lower extremity, chronic lower extremity cellulitis, who presented to the hospital due to right shoulder pain. As per previous documentation : "Patient indicates that he is had right shoulder pain for approximately 5 days. States that he is unable to move it, he is unable to use his right hand, he states that his arm is better if he keeps it straight. Patient had workup done with ultrasound of the upper extremity as well as x-ray of the right upper extremity which does not indicate any acute abnormality. However the patient is very resistant to examination. He is not allowing extension or movement of the arm for complete evaluation. Unfortunately, the shoulder that is not the main concern at this time, but his underlying psychiatric condition appears to be the most concerning. One is able to smell the patient outside of the room in the hallway because of he is unkept, disheveled and by his appearance unable to take care of himself. Patient is covered in what he states is diarrhea, dirt. He indicates that he had diarrhea that covered his legs and feet and because of his shoulder pain he is unable to bend over or wash himself with one arm. Patient also with obvious psychosis because he indicates that he is on-call for [employer] and expects a call at any time. Upon review medical records it does appears that the patient has had a plethora of admissions for psychiatric issues to include schizophrenia, psychosis, bipolar disorder. Most recent admission was 2 months ago when he was treated by psychiatry with Abilify and lithium. Patient's home medication records do not indicate that he has been taking the Abilify and his lithium level is less than 0.1 which would indicate that patient is not taking his medications. Because of his underlying psychiatric illness is difficult to obtain any information from the patient to include medical history, social history, family history, surgical history, it is difficult to examine the patient due to his resistance. Information was mainly taken from medical records, nursing staff". As per Dr. Fine's consult note: Patient was noted to be "very disorganized, talkative, with marked pressured speech, tangentiality, flight of ideas, loosening of associations, grandiosity or delusions and paranoia. His lithium level were less than 0.1 which proved that the patient was not compliant with medications. As per revision of documentation the patient has been self-neglecting, not taking care of himself, not taking his medical medications either, and living in deprecatory conditions. " Patient was transferred to the inpatient psychiatry unit for further evaluation and management. Patient was found lying in hospital bed cooperative in interview stating that he had a good breakfast daily that he is here because of his her shoulder. Patient states that he had gotten behind his medications because he had dropped some of the tablets and attempted trying to open the bottle after having hurt his shoulder which he reports had subsequent weakness of his right hand. He states that he did not take medications for the week prior his admission. He states currently that his mood is "happy" and had planned to visit his granddaughter in [place] with his son and son's family with a $10,000 motor home that she had recently bought. Patient denies any SI, HI, AVH or delusions at this time. Patient later states that he plans a [place] to find a stating "no sex until after marriage". Past psychiatric history: Previous psychiatric diagnoses of bipolar disorder, schizoaffective disorder, multiple psychiatric hospitalizations, last being December but was discharged to [facility] [facility], no previous suicide attempts, previous medication trials include lithium 600 mg by mouth twice a day and Abilify 10 mg by mouth daily. Substance use history: Tobacco(+), denies use of illegal substances. Past medical history: Hypertension, DVT of the right lower extremity, chronic lower extremity cellulitis Allergies: NKDA Social history: Patient was born and raised in [place], he lives alone in [place], he is unemployed, supported by Social Security, his highest level of education is high school 04/09/17 - Second opinion Patient found lying on hospital bed, calm and cooperative. Patient states that he is feeling well, tolerating his medications and wants to be discharged. He continues to be noted to be slightly hyperverbal and stating that he has a recently bought $10,000 motorcoach which he just bought and plans on going to [place] to see his new granddaughter. Patient has been noted to be somewhat intrusive at times and demanding with staff. Patient aware of his subtherapeutic lithium level. He continues with grandiose delusions, at times disorganized and tangential. Past Family Social History Coded Allergies: No Known Allergies (Verified Allergy, Unknown, 04/04/17) Active Scripts Levofloxacin (Levaquin) 750 Mg Tablet, 750 MG PO DAILY for Infection, #10 TAB 0 Refills Prov:Marcel Hernandez MD 04/06/17 [place] Carbonate ([place] Carbonate) 300 Mg Tab, 300 MG PO TID for psychosis, # 90 TAB Prov:Marcel Hernandez MD 04/06/17 Aripiprazole (Aripiprazole) 5 Mg Tab, 5 MG PO HS for psychosis, #30 TAB Prov:Marcel Hernandez MD 04/06/17 Clonazepam (Klonopin) 0.5 Mg Tab, 0.5 MG PO Q12HR for psychosis, #6 TAB Prov:Marcel Hernandez MD 04/06/17 Reported Medications Apixaban (Eliquis) 2.5 Mg Tab, 2.5 MG PO BID for Blood Clot Prevention, TAB 0 Refills 04/04/17 Lisinopril (Lisinopril) 5 Mg Tab, 5 MG PO DAILY for Blood Pressure Management, # 30 TAB 0 Refills 02/16/17 Discontinued Reported Medications Warfarin (Coumadin) 4 Mg Tab, 4 MG PO DAILY for Prevent Blood Clot, #30 TAB 0 Refills 02/16/17 Discontinued Scripts [place] Carbonate ([place] Carbonate) 300 Mg Tab, 300 MG PO 1 po Am, 2 po hs for health, #90 TAB 0 Refills Prov:Toribio Dejesus MD 01/02/17 Current Medications Medications (Trade) Dose Ordered Sig/Cb Route Start Time Stop Time Status Last Admin (Ativan) 1 mg Q6H PRN PO 04/06/17 16:00 04/09/17 02:23 (Ativan Inj) 1 mg Q6H PRN IM 04/06/17 16:00 (Tylenol) 650 mg Q4H PRN PO 04/06/17 16:00 04/09/17 16:57 (Milk Of Magnesia Liq) 30 ml DAILY PRN PO 04/06/17 16:00 (Mag-Al Plus Susp Liq) 30 ml Q6H PRN PO 04/06/17 16:00 (Eliquis) 2.5 mg BID PO 04/06/17 21:00 Future Hold 04/09/17 08:25 (Abilify) 5 mg HS PO 04/06/17 21:00 04/08/17 20:20 (KlonoPIN) 0.5 mg Q12HR PO 04/06/17 21:00 Future Hold (Prinivil) 5 mg DAILY PO 04/06/17 17:00 04/09/17 08:25 (Augmentin) 875 mg Q12HR PO 04/08/17 21:00 04/09/17 08:26 (Lithotabs) 600 mg BID PO 04/09/17 09:00 04/09/17 08:26 Patient's Strengths (min. 2) Verbal and, communicative Physical Exam Vital Signs Vital Signs Date Time Temp Pulse Resp B/P (MAP) Pulse Ox O2 Delivery O2 Flow Rate FiO2 04/09/17 18:00 97.6 95 18 128/77 (94) 95 I/O 04/09/17 04/09/17 04/10/17 08:00 16:00 00:00 Intake Total 960 ml 1080 ml 240 ml Output Total 800 ml Balance 160 ml 1080 ml 240 ml Lab Results Test 04/09/17 09:21 04/09/17 12:27 Hepatitis A IgM Antibody NEGATIVE Hepatitis B Surface Antigen NEGATIVE Hepatitis B Core IgM Antibody NEGATIVE Hepatitis C Antibody NEGATIVE HIV (1&2) Antibody NEGATIVE Carcinoembryonic Antigen 2.3 NG/ML Mental Status Examination Appearance: Disheveled Consciousness: Alert Orientation: x4 Speech: Unremarkable Language: Adequate Fund of Knowledge: Inadequate Attention and Concentration: Adequate Memory: Unremarkable Mood: Other ("good") Affect: Anxious (less so today) Thought Process & Associations: Circumstantial, Disorganized (at times) Thought Content: Other Hallucination Type: None Delusion Type: None Suicidal Ideation: No Suicidal Plan: No Suicidal Intention: No Homicidal Ideation: No Homicidal Plan: No Homicidal Intention: No Insight: Fair Judgment: Impulsive Assessment & Plan Problem List: (1) Bipolar disorder, current episode mixed, severe, with psychotic features ICD Codes: F31.64 - Bipolar disorder, current episode mixed, severe, with psychotic features Assessment & Plan I have seen and examined this patient, reviewed the documentation, discussed personally with Dr. Franco, and I agree and concur with his assessment and plan. Joselito Holland MD Apr 09, 2017 20:03
[2017-04-09] MEDS: ARIPiprazole 5 MG TAB PO SCH (21:04)
[2017-04-09] MEDS ORDERED: IOHEXOL 350 MG/ML 10 ML VIAL (for RAD DIAG) IVCONTRAST ONE (21:35)
--- NOTE | 2017-04-09 22:00 | RADRPT ---
EXAM DATE/TIME: 04/09/2017 21:32 [place] COMPARISON: No previous studies available for comparison. INDICATIONS : Strep infection. IV CONTRAST: 100 cc Omnipaque 350 (iohexol) IV ORAL CONTRAST: No oral contrast ingested. RADIATION DOSE: 15.61 CTDIvol (mGy) MEDICAL HISTORY : Cardiovascular disease. Hypertension. Carcinoma, colon. SURGICAL HISTORY : None. ENCOUNTER: Initial ACUITY: 1 day PAIN SCALE: 3/10 LOCATION: abdomen TECHNIQUE: Volumetric scanning of the abdomen and pelvis was performed. Using automated exposure control and ad justment of the mA and/or kV according to patient size, radiation dose was kept as low as reasonably achievable to obtain optimal diagnostic quality images. DICOM format image data is available electro nically for review and comparison. FINDINGS: Mild dependent atelectasis present in the lungs. No pleural or pericardial effusion. No acute findings in the liver, spleen, pancreas. Mild left-sided nodular adrenal enlargement. Small bilateral renal cysts. No hydronephrosis. Mild constipation. No free air or free fluid. No bowel obstruction. CONCLUSION: 1. No acute findings on abdomen and pelvic CT. Mild constipation. Eleazar Murillo MD on April 09, 2017 at 21:55 Board Certified Radiologist. This report was verified electronically.
[2017-04-10 06:05] VITALS: BP 126/67; PULSE 86; RESP 17; TEMP 97.8; O2SAT 98
--- NOTE | 2017-04-10 08:22 | PD.ORT.PN ---
Subjective Subjective Remarks no c/o On inpt psych [place] Objective Vitals Vital Signs Date Time Temp Pulse Resp B/P (MAP) Pulse Ox O2 Delivery O2 Flow Rate FiO2 04/10/17 06:05 97.8 86 17 126/67 (86) 98 04/09/17 18:00 97.6 95 18 128/77 (94) 95 I/O 04/09/17 04/09/17 04/09/17 04/10/17 04/10/17 04/10/17 07:00 15:00 23:00 07:00 15:00 23:00 Intake Total 1680 ml 1560 ml 720 ml 840 ml Output Total 2550 ml 800 ml 900 ml Balance -870 ml 1560 ml -80 ml -60 ml Intake Oral 1680 ml 1560 ml 720 ml 840 ml Output Urine Total 2550 ml 800 ml 900 ml # Voids 6 Result Diagram: 04/08/17 0736 Objective Remarks R shoulder, wound vac in place, dressings dry, no erythema mild swelling Assessment & Plan Ortho Post Op Day #: 5 Problem List: Assessment and Plan Abcess Right arm I/d, wound vac: POD#5 PLAN: cont wound VAC IV AB per medical stable ortho Kelvin Harley MD Apr 10, 2017 08:22
[2017-04-10] MEDS: LITHIUM CARBONATE 300 MG TAB PO SCH (09:00)
[2017-04-10] MEDS: AMOXICILLIN/CLAVULANATE K 875 MG TAB PO SCH (09:00)
[2017-04-10] MEDS: LISINOPRIL 5 MG TAB PO SCH (09:00)
[2017-04-10] MEDS ORDERED: ARIP1TAB11 PO (09:33)
[2017-04-10] MEDS ORDERED: LISI-519 PO (09:33)
[2017-04-10] MEDS ORDERED: LITH300T3 PO (09:33)
--- NOTE | 2017-04-10 09:37 | HHI.PR ---
Subjective Remarks does not want colonoscopy here had it done at [facility] about 5 months ago for colon cancer explained to pt regarding ID and GI opinions and duration of treatment based on findings agree for it now denies any blood in urine no vomiting but then thinks his stool is dark denies diarrhea though K is low Objective Vital Signs Date Time Temp Pulse Resp B/P (MAP) Pulse Ox O2 Delivery O2 Flow Rate FiO2 04/10/17 06:05 97.8 86 17 126/67 (86) 98 04/09/17 18:00 97.6 95 18 128/77 (94) 95 I/O 04/09/17 04/09/17 04/09/17 04/10/17 04/10/17 04/10/17 07:00 15:00 23:00 07:00 15:00 23:00 Intake Total 1680 ml 1560 ml 720 ml 840 ml Output Total 2550 ml 800 ml 900 ml Balance -870 ml 1560 ml -80 ml -60 ml Intake Oral 1680 ml 1560 ml 720 ml 840 ml Output Urine Total 2550 ml 800 ml 900 ml # Voids 6 Result Diagram: 04/08/17 0736 Objective Remarks LLE significantly bigger than the right stated chronic, from prior DVT A/P Assessment and Plan \right shoulder abscess - strep, I+D 04/05- wound site clean with wound vac, followed by wound care nurse hgb dropping- report of dark stool- check occult blood RLE asymmetric swelling- chronic per pt, hx of RLE DVT - on eliquis - on hold for upcoming colonoscopy ongoing pain bipolar dx stable bph eliquis on hold inform GI of pt's consent will call sister Sarah to update npo past midnight ultram prn for pain sacral decub- small per patient, being followed by wound care nurse need to resume eliquis post colonoscopy Yumiko Al MD Apr 10, 2017 09:37
--- NOTE | 2017-04-10 09:44 | HHI.DS ---
Psychiatry Discharge Summary Inpatient Psychiatric care?: Yes Advance Directive: No Reason Not Provided: Due to Patient Condition Mental Health AdvanceDirective: No Health Care Proxy: No Admission Admission Date Apr 06, 2017 at 14:58 Admission Diagnosis: (1) bipolar disorder Brief History Patient is a 61-year-old man, single, domiciled alone, retired, with a past psychiatric history of bipolar disorder, schizoaffective disorder, multiple psychiatric hospitalizations, last time being December 2016 he was discharged due to [place] [facility], no previous suicide attempts, past medical history of hypertension, DVT of the right lower extremity, chronic lower extremity cellulitis, who presented to the hospital due to right shoulder pain. As per previous documentation : "Patient indicates that he is had right shoulder pain for approximately 5 days. States that he is unable to move it, he is unable to use his right hand, he states that his arm is better if he keeps it straight. Patient had workup done with ultrasound of the upper extremity as well as x-ray of the right upper extremity which does not indicate any acute abnormality. However the patient is very resistant to examination. He is not allowing extension or movement of the arm for complete evaluation. Unfortunately, the shoulder that is not the main concern at this time, but his underlying psychiatric condition appears to be the most concerning. One is able to smell the patient outside of the room in the hallway because of he is unkept, disheveled and by his appearance unable to take care of himself. Patient is covered in what he states is diarrhea, dirt. He indicates that he had diarrhea that covered his legs and feet and because of his shoulder pain he is unable to bend over or wash himself with one arm. 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 Upon review medical records it does appears that the patient has had a plethora of admissions for psychiatric issues to include schizophrenia, psychosis, bipolar disorder. Most recent admission was 2 months ago when he was treated by psychiatry with Abilify and lithium. Patient's home medication records do not indicate that he has been taking the Abilify and his lithium level is less than 0.1 which would indicate that patient is not taking his medications. Because of his underlying psychiatric illness is difficult to obtain any information from the patient to include medical history, social history, family history, surgical history, it is difficult to examine the patient due to his resistance. Information was mainly taken from medical records, nursing staff". As per Dr. Fine's consult note: Patient was noted to be "very disorganized, talkative, with marked pressured speech, tangentiality, flight of ideas, loosening of associations, grandiosity or delusions and paranoia. His lithium level were less than 0.1 which proved that the patient was not compliant with medications. As per revision of documentation the patient has been self-neglecting, not taking care of himself, not taking his medical medications either, and living in deprecatory conditions. " Patient was transferred to the inpatient psychiatry unit for further evaluation and management. Patient was found lying in hospital bed cooperative in interview stating that he had a good breakfast daily that he is here because of his her shoulder. Patient states that he had gotten behind his medications because he had dropped some of the tablets and attempted trying to open the bottle after having hurt his shoulder which he reports had subsequent weakness of his right hand. He states that he did not take medications for the week prior his admission. He states currently that his mood is "happy" and had planned to visit his granddaughter in [place] with his son and son's family with a $10,000 motor home that she had recently bought. Patient denies any SI, HI, AVH or delusions at this time. Patient later states that he plans a [place] to find a stating "no sex until after marriage". Past psychiatric history: Previous psychiatric diagnoses of bipolar disorder, schizoaffective disorder, multiple psychiatric hospitalizations, last being December but was discharged to [place] [facility], no previous suicide attempts, previous medication trials include lithium 600 mg by mouth twice a day and Abilify 10 mg by mouth daily. Substance use history: Tobacco(+), denies use of illegal substances. Past medical history: Hypertension, DVT of the right lower extremity, chronic lower extremity cellulitis Allergies: NKDA Social history: Patient was born and raised in [place], he lives alone in [place], he is unemployed, supported by Social Security, his highest level of education is high school 04/09/17 - Second opinion Patient found lying on hospital bed, calm and cooperative. Patient states that he is feeling well, tolerating his medications and wants to be discharged. He continues to be noted to be slightly hyperverbal and stating that he has a recently bought $10,000 motorcoach which he just bought and plans on going to [place] to see his new granddaughter. Patient has been noted to be somewhat intrusive at times and demanding with staff. Patient aware of his subtherapeutic lithium level. He continues with grandiose delusions, at times disorganized and tangential. Tobacco Use In Past 30 Days: 5 or More Cigarettes/Day Alcohol Use: Never Hospital Course Patient was admitted in the med psych unit transfer from [facility]. The patient was admitted medically due to right arm cellulitis periods, but the patient was found to be very manic, with racing thoughts, pressured speech, delusions of grandiosity, hyperactivity, disruptive behavior. The patient was [place], safety measures were taken, psychosocial a psychiatric assessment completed. Initially his lithium level were suboptimal confirmed that the patient was not compliant with medications. He was started lithium and 300 mg twice a day in the medical floor, also in Abilify 2 mg daily and clonazepam 0.5 mg twice a day. This medication were titrated up as needed and as the patient could tolerate. The patient showed basically an immediate positive response to this psychotropics. Like the last time he was hospitalized in December 2016, the patient seems to be positive to lithium and Abilify. At the beginning the patient was kind of agitated, irritable, at times verbally hostile very labile, but most of the time, cooperative, compliant medications, with no significant side effects reported. Patient achieved baseline with lithium 600 mg twice a day and Abilify 5 mg daily. Patient was extensively psycho educated about the importance of been adherent and compliant with his psychotropics and outpatient psychiatric follow-ups. The moment of discharge the patient denies mood symptoms, he denies perceptual disturbances, he denies suicidal and homicidal ideation, he denies visual and auditory hallucinations. No sergio, no delusions , no paranoia, are observed. Results Blood Pressure 126 / 67 Vital Signs Date Time Temp Pulse Resp B/P (MAP) Pulse Ox O2 Delivery O2 Flow Rate FiO2 04/10/17 06:05 97.8 86 17 126/67 (86) 98 Laboratory Tests Test 04/08/17 07:36 04/09/17 09:21 04/09/17 12:27 Sodium Level 134 MEQ/L (136-145) Steen Level 0.4 MEQ/L (0.5-1.5) Laboratory Results Test 04/07/17 08:05 04/08/17 07:36 Cholesterol Level 100 MG/DL (120-200) HDL Cholesterol 50.4 MG/DL (40.0-60.0) Hemoglobin A1c 6.6 % (4.3-6.0) LDL Cholesterol 34 MG/DL (0-99) Triglycerides Level 78 MG/DL (42-150) Steen Level 0.4 MEQ/L (0.5-1.5) Summary of Major Lab Results Patient was admitted in the med psych unit, is transferred from [facility] the patient Summary of Procedures None Imaging Last Impressions Abdomen/Pelvis CT 04/09/17 0000 Signed Impressions: Service Date/Time: Sunday, April 09, 2017 21:32 - CONCLUSION: 1. No acute findings on abdomen and pelvic CT. Mild constipation. Eleazar Murillo MD Pending results at discharge: No Medications # of Antipsychotic meds at D/C: 1 Approp Antipsych med options 1 - Minimum of three failed multiple trials of monotherapy. 2 - Documented plan to taper to monotherapy due to previous use of multiple meds OR cross-taper in progress at D/C. 3 - Documentation of augmentation of Clozapine. 4 - Justification other than those listed in allowable values 1-3, document here : Discharge Discharge Date: Apr 11, 2017 Discharge Diagnosis: (1) bipolar disorder Diagnosis: Principal Pt Condition on Discharge: Stable Discharge Disposition: Discharge Home Discharge Instructions Diet Instructions: Heart Healthy Diet Activities you can perform: Weight Bearing as Patricia Scheduled Appointment: Discharge Time > 30 minutes Mental Status Examination Appearance: Disheveled Consciousness: Alert Orientation: x4 Speech: Unremarkable Language: Adequate Fund of Knowledge: Inadequate Attention and Concentration: Adequate Memory: Unremarkable Mood: Other ("good") Affect: Anxious (less so today) Thought Process & Associations: Circumstantial, Disorganized (at times) Thought Content: Other Hallucination Type: None Delusion Type: None Suicidal Ideation: No Suicidal Plan: No Suicidal Intention: No Homicidal Ideation: No Homicidal Plan: No Homicidal Intention: No Insight: Fair Judgment: Impulsive Discharge/Advance Care Plan Health Problems: (1) Bipolar disorder, current episode mixed, severe, with psychotic features Goals to promote your health * To prevent worsening of your condition and complications * To maintain your health at the optimal level Directions to meet your goals Take your medications as prescribed Follow your dietary instruction Follow activity as directed Keep your appointments as scheduled Take your immunizations and boosters as scheduled If your symptoms worsen call your PCP, if no PCP go to Urgent Care Center or Emergency Room For 20/11 questions related to your inpatient stay or results of tests pending at discharge, please contact Dr. Trent Franco at Smoking is Dangerous to Your Health. Avoid second hand smoking Trent Franco MD Apr 10, 2017 09:44
[2017-04-10] MEDS ORDERED: traMADol HCL 50 MG TAB PO PRN (10:00)
[2017-04-10 10:15] LABS: AUTOMATED NEUTROPHIL # 5.9 TH/MM3 (1.8-7.7); BASOPHIL # 0.1 TH/MM3 (0-0.2); BASOPHIL % 0.8 % (0.0-2.0); EOSINOPHIL # 0.5 TH/MM3 (0-0.4); EOSINOPHIL % 5.8 % (0.0-4.0); HEMATOCRIT 37.1 % (39.0-51.0); HEMO FLAGS DIFF FINAL; LYMPHOCYTE # 2.1 TH/MM3 (1.0-4.8); MEAN CELL VOLUME 90.8 FL (80.0-100.0); MEAN CORPUSCULAR HEMOGLOBIN 30.9 PG (27.0-34.0); MONO % 5.3 % (0.0-8.0); NEUT % 65.1 % (16.0-70.0); PLATELET COUNT 394 TH/MM3 (150-450); RED BLOOD COUNT 4.08 MIL/MM3 (4.50-5.90); WHITE BLOOD COUNT 9.1 TH/MM3 (4.0-11.0)
[2017-04-10 10:41] LABS: BICARBONATE 24.3 MEQ/L (21.0-32.0); MAGNESIUM 1.9 MG/DL (1.5-2.5); POTASSIUM 3.7 MEQ/L (3.5-5.1)
[2017-04-10] MEDS ORDERED: MAGNESIUM CITRATE SOLN 300 ML BTL PO ONE ×2 (14:00→19:00)
--- NOTE | 2017-04-10 14:07 | HHI.GIFU ---
Subjective Remarks resting in bed No acute distress. NO N&V, abd. pain Objective Vitals I&O Vital Signs Date Time Temp Pulse Resp B/P (MAP) Pulse Ox O2 Delivery O2 Flow Rate FiO2 04/10/17 06:05 97.8 86 17 126/67 (86) 98 04/09/17 18:00 97.6 95 18 128/77 (94) 95 I/O 04/09/17 04/09/17 04/09/17 04/10/17 04/10/17 04/10/17 07:00 15:00 23:00 07:00 15:00 23:00 Intake Total 1680 ml 1560 ml 720 ml 840 ml 720 ml Output Total 2550 ml 800 ml 900 ml Balance -870 ml 1560 ml -80 ml -60 ml 720 ml Intake Oral 1680 ml 1560 ml 720 ml 840 ml 720 ml Output Urine Total 2550 ml 800 ml 900 ml # Voids 6 Laboratory Laboratory Tests Test 04/10/17 09:19 04/10/17 09:23 Blood Urea Nitrogen 12 Creatinine 0.71 Random Glucose 112 Albumin 2.5 Calcium Level 9.3 Phosphorus Level 2.8 Magnesium Level 1.9 Sodium Level 133 Potassium Level 3.7 Chloride Level 101 Carbon Dioxide Level 24.3 Anion Gap 8 Estimat Glomerular Filtration Rate 114 White Blood Count 9.1 Red Blood Count 4.08 Hemoglobin 12.6 Hematocrit 37.1 Mean Corpuscular Volume 90.8 Mean Corpuscular Hemoglobin 30.9 Mean Corpuscular Hemoglobin Concent 34.0 Red Cell Distribution Width 15.0 Platelet Count 394 Mean Platelet Volume 7.8 Neutrophils (%) (Auto) 65.1 Lymphocytes (%) (Auto) 23.0 Monocytes (%) (Auto) 5.3 Eosinophils (%) (Auto) 5.8 Basophils (%) (Auto) 0.8 Neutrophils # (Auto) 5.9 Lymphocytes # (Auto) 2.1 Monocytes # (Auto) 0.5 Eosinophils # (Auto) 0.5 Basophils # (Auto) 0.1 CBC Comment DIFF FINAL Differential Comment Imaging Last Impressions Abdomen/Pelvis CT 04/09/17 0000 Signed Impressions: Service Date/Time: Sunday, April 09, 2017 21:32 - CONCLUSION: 1. No acute findings on abdomen and pelvic CT. Mild constipation. Eleazar Murillo MD Physical Exam HEENT: Pupils round and reactive to light; normocephalic; atraumatic; no jaundice. sppech clear NECK: Neck is supple, no JVD, no lymphadenopathy. CHEST: Chest is clear without rhonchi CARDIAC: Regular rate and rhythm with no murmur gallop or rubs. ABDOMEN: Soft, nondistended, nontender; no hepatosplenomegaly; bowel sounds are present in all four quadrants. EXTREMITIES: No clubbing, cyanosis, or edema. SKIN: Normal; no rash; no jaundice. 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, responds Assessment and Plan Assessment: (1) Bacterial infection due to Streptococcus ICD Codes: A49.1 - Streptococcal infection, unspecified site (2) Hx of malignant neoplasm of colon ICD Codes: Z85.038 - Personal history of other malignant neoplasm of large intestine (3) DVT (deep venous thrombosis) ICD Codes: I82.409 - Acute embolism and thrombosis of unspecified deep veins of unspecified lower extremity Status: Acute (4) Schizophrenia, paranoid, chronic ICD Codes: F20.0 - Paranoid schizophrenia Status: Acute Plan History of colon cancer, patient denies any symptoms of nausea, vomiting, diarrhea, constipation or blood loss. There is no CT scan noted for comparison since 2009. Abdomen nondistended nontender, patient appears comfortable. Right shoulder/ cellulitis with strep bacteremia. Questionable concern of strep and history of colonic cancer. History of paranoid schizophrenia and bipolar disorder, currently being managed per the medical team and the psych team. Plan to transition to medical floor today. Plan for colonoscopy tomorrow. Mag Citrate prep. Plan: Clear liquids today, Colonoscopy planned for am Medhat has been held X 2 days for tomorrow am. Mag. prep ordered. NPO at midnight. Patient can still follow up with OP appt. at [facility]. Plan of care will be based on findings of CEA lab. Patient was seen by myself and Dr. Machado, case has been discussed, note has been initiated on his behalf Belle Cunha Apr 10, 2017 14:07
[2017-04-11] MEDS ORDERED: MAGNESIUM CITRATE SOLN 300 ML BTL PO ONE (06:00)
== END 2017-04-10 16:15 | disposition short-term general hospital (02) | DRG 885 ==
LOC: H4EA 14:58
PROVIDERS: ADMIT Psychiatry & Neurology Psychiatry; ATTEND Psychiatry & Neurology Psychiatry
DX: F31.64 Bipolar disorder, current episode mixed, severe, with psychotic features (principal); L89.159 Pressure ulcer of sacral region, unspecified stage; L03.115 Cellulitis of right lower limb; Z91.14 Patient's other noncompliance with medication regimen; L02.413 Cutaneous abscess of right upper limb; L03.113 Cellulitis of right upper limb; I10 Essential (primary) hypertension; M60.9 Myositis, unspecified; B95.5 Unspecified streptococcus as the cause of diseases classified elsewhere; F17.210 Nicotine dependence, cigarettes, uncomplicated; Z85.038 Personal history of other malignant neoplasm of large intestine; Z86.718 Personal history of other venous thrombosis and embolism; Z92.21 Personal history of antineoplastic chemotherapy; Z79.01 Long term (current) use of anticoagulants
CPT/HCPCS: 74177; 80048; 80061; 80069; 80074; 80178; 82378; 83036; 83735; 84443; 85025; 86592; 86703; 93306; Q9967

== ENCOUNTER 2017-04-10 12:45 | Inpatient (IN) | payer OTHER, MEDICARE ==
[~2017-04-10] VITALS: Ht 182.9 cm; Wt 90.4 kg
[~2017-04-10 12:45] MED LIST changes: +LEVA750T9 PO
[2017-04-10] MEDS ORDERED: NALOXONE HCL 0.4 MG/ML AMP IV PUSH PRN ×2 (13:45→17:00)
[2017-04-10] MEDS ORDERED: SODIUM CHLORIDE 0.9% FLUSH 10 ML FLUSH IV FLUSH PRN ×2 (13:45→17:00)
--- NOTE | 2017-04-10 14:54 | HHI.HP ---
HPI Service [facility] Primary Care Physician Kari Schulz Do, MD Admission Diagnosis Diagnoses: Travel History International Travel<30 Days: No Contact w/Intl Traveler <30 Da: No Traveled to Known Affected Are: No History of Present Illness History from patient, psychiatry nurses, and review of medical records. Patient was seen in psychiatry unit. I was informed by the psychiatry nurse the patient is cleared by his psychiatrist. Patient was admitted to medical floors initially from April 04 to April 06, 2017. At that time, he was managed for his right shoulder abscess which was evaluated by orthopedics surgeon and underwent incision and drainage of that abscess on April 05, 2017 with wound VAC placement. He was receiving wound care and changes on Sunday, Sunday, Sunday. The wound cultures was growing strep C. He was evaluated by infectious disease specialist. Notes reviewed. It was recommended for patient to have GI evaluation with colonoscopy because patient has had recent colonoscopy at [place] about 5 months ago for his colon cancer and did undergo partial colectomy. Patient was evaluated by GI service while in hospital including in psychiatry unit. His other concern is was on hold starting yesterday and he is planned for colonoscopy tomorrow. When talking about this colonoscopy, patient initially was refusing for colonoscopy. explained to pt regarding ID and GI opinions and duration of treatment for his infection based on findings Patient now is agreeable to the procedure At present, patient denies any nausea or vomiting. He actually denies any urinary burning or pain on urination or frequent urination. He however thinks that his stool is quite dark. He denies diarrhea. He is noted to have low potassium. Review of Systems Except as stated in HPI: all other systems reviewed are Neg Past Family Social History Past Medical History Schizophrenia Bipolar disorder with recurrent episodes of psychosis History of colon cancer status post partial colectomy in 2003. History of right lower extremity DVT. Status post IVC filter in 2014. Removal of this IVC filter in June 2016. Hypertension Chronic anticoagulation on eliquis Past Surgical History Colonoscopy Partial colectomy in 2003 IVC filter placement and removal Reported Medications Patient's medications listed on EMR reviewed Allergies: Coded Allergies: No Known Allergies (Verified Allergy, Unknown, 04/04/17) Family History Unknown. Father from stroke at age 63 and Mother from "natural causes "at age 88 Social History Per EMR: Patient reports smoking one pack per week of cigarettes for the past 7 years Denies alcohol Denies any illicit drugs. Physical Exam Physical Exam GENERAL: This is a well-nourished, well-developed patient, in no apparent distress. SKIN: Dry scaly skin. HEAD: Atraumatic. Normocephalic. No temporal or scalp tenderness. EYES: No scleral icterus. No injection or drainage. Left eye mild ptosis ENT: Nose without bleeding, purulent drainage or septal hematoma. Airway patent. NECK: Trachea midline. No JVD CARDIOVASCULAR: Regular rate and rhythm without murmurs, gallops, or rubs. RESPIRATORY: Clear to auscultation. Breath sounds equal bilaterally. No wheezes , rales, or rhonchi. Decreased air entry bilaterally GASTROINTESTINAL: Abdomen soft, non-tender, nondistended. No guarding. MUSCULOSKELETAL: Extremities without clubbing, cyanosis, or edema. . No calf tenderness. Right shoulder deltoid area wound VAC insertion site. Clean site. Wound VAC is draining serosanguineous NEUROLOGICAL: Awake and alert. Motor and sensory grossly within normal limits. Normal speech. Caprini VTE Risk Assessment Caprini VTE Risk Assessment: Mod/High Risk (score >= 2) Caprini Risk Assessment Model Point Value = 1 Point Value = 2 Point Value = 3 Point Value = 5 Age 41-60 Minor surgery BMI > 25 kg/m2 Swollen legs Varicose veins or History of unexplained or recurrent spontaneous Oral contraceptives or hormone replacement Sepsis (< 1 month) Serious lung disease, including pneumonia (< 1 month) Abnormal pulmonary function Acute myocardial infarction Congestive heart failure (< 1 month) History of inflammatory bowel disease Medical patient at bed rest Age 61-74 Arthroscopic surgery Major open surgery (> 45 min) Laparoscopic surgery (> 45 min) Malignancy Confined to bed (> 72 hours) Immobilizing plaster cast Central venous access Age >= 75 History of VTE Family history of VTE Factor V Leiden Prothrombin [id number] Lupus anticoagulant Anticardiolipin antibodies Elevated serum homocysteine Heparin-induced thrombocytopenia Other congenital or acquired thrombophilia Stroke (< 1 month) Elective arthroplasty Hip, pelvis, or leg fracture Acute spinal cord injury (< 1 month) Prophylaxis Regimen Total Risk Factor Score Risk Level Prophylaxis Regimen 0-1 Low Early ambulation 2 Moderate Order ONE of the following: *Sequential Compression Device (SCD) *Heparin 5000 units SQ BID 3-4 Higher Order ONE of the following medications: *Heparin 5000 units SQ TID *Enoxaparin/Lovenox 40 mg SQ daily (WT < 150 kg, CrCl > 30 mL/min) *Enoxaparin/Lovenox 30 mg SQ daily (WT < 150 kg, CrCl > 10-29 mL/min) *Enoxaparin/Lovenox 30 mg SQ BID (WT < 150 kg, CrCl > 30 mL/min) AND/OR *Sequential Compression Device (SCD) 5 or more Highest Order ONE of the following medications: *Heparin 5000 units SQ TID (Preferred with Epidurals) *Enoxaparin/Lovenox 40 mg SQ daily (WT < 150 kg, CrCl > 30 mL/min) *Enoxaparin/Lovenox 30 mg SQ daily (WT < 150 kg, CrCl > 10-29 mL/min) *Enoxaparin/Lovenox 30 mg SQ BID (WT < 150 kg, CrCl > 30 mL/min) AND *Sequential Compression Device (SCD) Assessment and Plan Assessment and Plan Impression: right shoulder abscess - strep, I+D 04/05- wound site clean with wound vac, followed by wound care nurse hgb dropping- report of dark stool- check occult blood RLE asymmetric swelling- chronic per pt, hx of RLE DVT - on eliquis - on hold for upcoming colonoscopy ongoing pain bipolar dx stable bph Co morbid conditions: Schizophrenia Bipolar disorder with recurrent episodes of psychosis History of colon cancer status post partial colectomy in 2003. History of right lower extremity DVT. Status post IVC filter in 2014. Removal of this IVC filter in June 2016. Hypertension Chronic anticoagulation on eliquis Plan: transfer pt to medical floor for ongoing treatment as he is psychiatrically cleared. eliquis on hold inform GI of pt's consent - pt was evaluated by GI today- will do colonoscopy in am Have discussed with patient's sister Chantal with an update. npo past midnight ultram prn for pain sacral decub- small per patient, being followed by wound care nurse need to resume eliquis post colonoscopy Resume rest of his inpatient medications. DVT prophylaxis: Eliquis post procedure. case management consult for placement Discussed Condition With patient, his psychiatry nurse Physician Certification 2 Midnight Certification Type: Admission for Inpatient Services Order for Inpatient Services The services are ordered in accordance with Medicare regulations or non- Medicare payer requirements, as applicable. In the case of services not specified as inpatient-only, they are appropriately provided as inpatient services in accordance with the 2-midnight benchmark. Estimated LOS (days): 3 days is the estimated time the patient will need to remain in the hospital, assuming treatment plan goals are met and no additional complications. Post-Hospital Plan: SNF Yumiko Al MD Apr 10, 2017 14:54
[2017-04-10 17:07] VITALS: BP 120/76; PULSE 82; RESP 17; TEMP 97.8; O2SAT 99
[2017-04-10] MEDS ORDERED: MAGNESIUM CITRATE SOLN 300 ML BTL PO ONE (19:00)
[2017-04-10 20:00] VITALS: BP 121/70; PULSE 84; RESP 20; TEMP 97; O2SAT 94
[2017-04-10] MEDS: APIXABAN 2.5 MG TABLET PO SCH (21:00)
[2017-04-10] MEDS ORDERED: SODIUM CHLORIDE 0.9% FLUSH 10 ML FLUSH IV FLUSH SCH (21:00)
[2017-04-10] MEDS: LITHIUM CARBONATE 300 MG TAB PO SCH (21:00)
[2017-04-10] MEDS: SODIUM CHLORIDE 0.9% FLUSH 10 ML FLUSH IV FLUSH SCH (21:00)
[2017-04-10] MEDS: AMOXICILLIN/CLAVULANATE K 875 MG TAB PO SCH (21:00)
[2017-04-10] MEDS: ARIPiprazole 5 MG TAB PO SCH (21:00)
[2017-04-10] MEDS ORDERED: LACTATED RINGER'S 1000 ML IV PRN (21:15)
[2017-04-10] MEDS ORDERED: METOPROLOL TARTRATE 25 MG TAB PO PRN (21:15)
[2017-04-10] MEDS ORDERED: SODIUM CHLORID 0.9% 500 ML IV PRN (21:15)
--- NOTE | 2017-04-10 21:58 | PD.CONS ---
HPI History of Present Illness This is a 61 year old male who is being transferred from the psych unit to the medical floor we had been seeing the patient on the psych floor. Patient being treated for a right shoulder abscess he required I&D the wound cultures grew strep C and as a result a GI consult was requested for a colonoscopy the patient's last colonoscopy was done at [facility] 5 months ago and he has a history of colon cancer for which he underwent partial colectomy Patient is currently comfortable in bed with no complaints PFSH Past Medical History Schizophrenia Bipolar disorder with recurrent episodes of psychosis History of colon cancer status post partial colectomy in 2003. History of right lower extremity DVT. Status post IVC filter in 2014. Removal of this IVC filter in June 2016. Hypertension Chronic anticoagulation on eliquis Past Surgical History Colonoscopy Partial colectomy in 2003 IVC filter placement and removal Coded Allergies: No Known Allergies (Verified Allergy, Unknown, 04/04/17) Medications Current Medications Sodium Chloride (NS Flush) 2 ml UNSCH PRN IV FLUSH FLUSH AFTER USING IV ACCESS ; Start 04/10/17 at 13:45 Sodium Chloride (NS Flush) 2 ml BID IV FLUSH Last administered on 04/10/17 21 :00; Start 04/10/17 at 21:00 Naloxone HCl (Narcan Inj) 0.4 mg UNSCH PRN IV PUSH SEE LABEL COMMENTS; Start 04/10/17 at 13:45; Stop 04/10/17 at 17:01; Status DC Apixaban (Eliquis) 2.5 mg BID PO ; Start 04/10/17 at 21:00 Aripiprazole (Abilify) 5 mg HS PO Last administered on 04/10/17 21:00; Start 04/10/17 at 21:00 Lisinopril (Prinivil) 5 mg DAILY PO ; Start 04/11/17 at 09:00 [place] Carbonate (Lithotabs) 600 mg BID PO Last administered on 04/10/17 21: 00; Start 04/10/17 at 21:00 Magnesium Citrate (Citroma Liq) 300 ml ONCE ONCE PO Last administered on 04/10 18:45; Start 04/10/17 at 19:00; Stop 04/10/17 at 19:01; Status DC Magnesium Citrate (Citroma Liq) 300 ml ONCE ONCE PO ; Start 04/11/17 at 06:00 ; Stop 04/11/17 at 06:01 Amoxicillin/ Clavulanate Potassium (Augmentin) 875 mg Q12HR PO Last administered on 04/10/17t 21:00; Start 04/10/17 at 21:00 Sodium Chloride (NS Flush) 2 ml UNSCH PRN IV FLUSH FLUSH AFTER USING IV ACCESS ; Start 04/10/17 at 17:00; Stop 04/10/17 at 17:01; Status DC Sodium Chloride (NS Flush) 2 ml BID IV FLUSH ; Start 04/10/17 at 21:00; Stop 04/10/17 at 21:00; Status DC Naloxone HCl (Narcan Inj) 0.4 mg UNSCH PRN IV PUSH SEE LABEL COMMENTS; Start 04/10/17 at 17:00 Lactated Ringer's 1,000 ml @ 30 mls/hr Q24H PRN IV SEE LABEL COMMENTS; Start 04/10/17 at 21:15; Stop 04/13/17 at 21:14 Sodium Chloride 500 ml @ 30 mls/hr [id number] PRN IV SEE LABEL COMMENTS; Start at 21:15; Stop 04/13/17 at 21:14 Metoprolol Tartrate (Lopressor) 25 mg LEAD TECHNICAL ARCHITECT PRN PO SEE LABEL COMMENTS; Start 04/10/17 at 21:15; Stop 04/13/17 at 21:14 Family History Father from stroke at age 63 and Mother from "natural causes "at age 88 Social History Patient reports smoking one pack per week of cigarettes for the past 7 years Denies alcohol Denies any illicit drugs. Review of Systems ROS Review of systems Patient denies any headache dizziness blurry vision, denies any chest pain shortness of breath cough fever chills, Denies any palpitations or fatigue denies any polyuria dysuria hematuria, denies any numbness tingling or weakness, denies any skin rash pruritus or jaundice, denies any easy bruising or bleeding tendency, denies any recent change in mood GI Exam Vitals I&O Vital Signs Date Time Temp Pulse Resp B/P (MAP) Pulse Ox O2 Delivery O2 Flow Rate FiO2 04/10/17 17:07 97.8 82 17 120/76 (91) 99 I/O 04/09/17 04/09/17 04/09/17 04/10/17/12/17 12/12/17 07:00 15:00 23:00 07:00 15:00 23:00 Output Total 200 ml Balance -200 ml Output Urine Total 200 ml Physical Examination HEENT: Pupils round and reactive to light; normocephalic; atraumatic; no jaundice. Throat is clear. NECK: Neck is supple, no JVD, no lymphadenopathy. CHEST: Chest is clear to auscultation and percussion. CARDIAC: Regular rate and rhythm with no murmur gallop or rubs. ABDOMEN: Soft, nondistended, nontender; no hepatosplenomegaly; bowel sounds are present in all four quadrants. EXTREMITIES: No clubbing, cyanosis, or edema. SKIN: Normal; no rash; no jaundice. STAGE ELECTRICIAN HELPER: No focal deficits; alert and oriented times three. Assessment and Plan Plan (1) Bacterial infection due to Streptococcus ICD Codes: A49.1 - Streptococcal infection, unspecified site (2) Hx of malignant neoplasm of colon ICD Codes: Z85.038 - Personal history of other malignant neoplasm of large intestine Plan History of colon cancer, patient denies any symptoms of nausea, vomiting, diarrhea, constipation or blood loss. His most recent CT done yesterday was basically unremarkable. Abdomen nondistended nontender, normal BM formed stool today. Right shoulder/ cellulitis with strep bacteremia. Questionable concern of strep and history of colonic cancer. Are they related? History of paranoid schizophrenia and bipolar disorder, patient was cleared by psych and so he was transferred to the internal medicine floor for further evaluation and treatment. Plan We will proceed with a colonoscopy tomorrow Continue with current supportive care Cain De Jesus MD Apr 10, 2017 21:58
[2017-04-11] VITALS: BP 114/64; PULSE 74; PULSE 79; RESP 20; TEMP 97.2; O2SAT 95
[2017-04-11 04:00] VITALS: BP 122/68; PULSE 72; PULSE 75; RESP 20; TEMP 97.3; O2SAT 94
[2017-04-11] MEDS ORDERED: MAGNESIUM CITRATE SOLN 300 ML BTL PO ONE ×3 (06:00→21:00)
[2017-04-11 08:00] VITALS: BP 112/68; PULSE 78; RESP 16; TEMP 96.9; O2SAT 95
[2017-04-11] MEDS: AMOXICILLIN/CLAVULANATE K 875 MG TAB PO SCH ×2 (08:15→22:21)
[2017-04-11] MEDS: SODIUM CHLORIDE 0.9% FLUSH 10 ML FLUSH IV FLUSH SCH ×2 (08:16→22:22)
[2017-04-11] MEDS: APIXABAN 2.5 MG TABLET PO SCH ×2 (08:16→21:00)
[2017-04-11] MEDS: LISINOPRIL 5 MG TAB PO SCH (08:16)
[2017-04-11] MEDS: LITHIUM CARBONATE 300 MG TAB PO SCH ×2 (08:16→22:21)
--- NOTE | 2017-04-11 08:18 | HHI.PR ---
Subjective Remarks This is a pleasant 61 y/o Male admitted 04/10/17, his PCP Doctor Kari Schulz Do, Readmission of this patient who was just discharged on 04/06/17 due to Right shoulder abscess, had I and D on 04/05/17, wound VAC placement, was on wound care management, he had growth of Strep C, he has Colon Cancer and did undergo partial colectomy had a planned colonoscopy for Today, he was Cleared from the Psychiatric unit yesterday, he has been admitted due to Bipolar Disorder, Schizoaffective disorder, Multiple psychiatric hospitalizations, has Hypertension, DVT to the right lower extremity, Chronic lower extremity cellulitis, treated by Psychiatry with Abilify 10 mg and [place] 600 mg BID. the patient was discharged from Psychiatric unit and transferred to the floor for planned Colonoscopy. With Diagnosis of Schizophrenia, Bipolar disorder with recurrent episodes of Psychosis, History of colon cancer status post partial Colectomy Right lower extremity DVT status post IVC filter in March 2015, Removal of this IVC filter June 2016, Hypertension, chronic anticoagulation with Eliquis, Tobacco dependence. Seen in his bedroom, discussed with nurse Miss Sinha and Multidisciplinary round, okay to discharge Home with [facility] if okay by Orthopedic Surgery will place a call to Doctor Kelvin Harley, will consult licensing specialist to follow, also will get clearance by GI specialist after colonoscopy performed and PT evaluation. no complaint by patient no nausea , vomit or diarrhea. Objective Vital Signs Date Time Temp Pulse Resp B/P (MAP) Pulse Ox O2 Delivery O2 Flow Rate FiO2 04/11/17 04:00 72 04/11/17 04:00 97.3 75 20 122/68 (86) 94 04/11/17 00:00 97.2 74 20 114/64 (81) 95 04/11/17 00:00 79 04/10/17 20:00 97.0 84 20 121/70 (87) 94 04/10/17 20:00 84 04/10/17 17:07 97.8 82 17 120/76 (91) 99 I/O 04/10/17 04/10/17 04/10/17 04/11/17 04/11/17 04/11/17 07:00 15:00 23:00 07:00 15:00 23:00 Intake Total 300 ml Output Total 200 ml 850 ml Balance -200 ml -550 ml Intake Oral 300 ml Output Urine Total 200 ml 850 ml Drainage Total 0 ml # Bowel Movements 1 Imaging No new imaging studies. Procedures None Other Results No new laboratory. Objective Remarks GENERAL: This is a well-nourished, well-developed patient, in no apparent distress. SKIN: Dry scaly skin. HEAD: Atraumatic. Normocephalic. No temporal or scalp tenderness. EYES: No scleral icterus. No injection or drainage. Left eye mild ptosis ENT: Nose without bleeding, purulent drainage or septal hematoma. Airway patent. NECK: Trachea midline. No JVD CARDIOVASCULAR: Regular rate and rhythm without murmurs, gallops, or rubs. RESPIRATORY: Clear to auscultation. Breath sounds equal bilaterally. No wheezes , rales, or rhonchi. Decreased air entry bilaterally GASTROINTESTINAL: Abdomen soft, non-tender, nondistended. No guarding. MUSCULOSKELETAL: Extremities without clubbing, cyanosis, or edema. . No calf tenderness. Right shoulder deltoid area wound VAC insertion site. Clean site. Wound VAC is draining serosanguineous NEUROLOGICAL: Awake and alert. Motor and sensory grossly within normal limits. Normal speech. Medications and IVs Current Medications Medications (Trade) Dose Ordered Sig/Cb Route Start Time Stop Time Status Last Admin (NS Flush) 2 ml UNSCH PRN IV FLUSH 04/10/17 13:45 (NS Flush) 2 ml BID IV FLUSH 04/10/17 21:00 04/11/17 08:16 (Eliquis) 2.5 mg BID PO 04/10/17 21:00 (Abilify) 5 mg HS PO 04/10/17 21:00 04/10/17 21:00 (Prinivil) 5 mg DAILY PO 04/11/17 09:00 04/11/17 08:16 (Lithotabs) 600 mg BID PO 04/10/17 21:00 04/11/17 08:16 (Augmentin) 875 mg Q12HR PO 04/10/17 21:00 04/11/17 08:15 (Narcan Inj) 0.4 mg UNSCH PRN IV PUSH 04/10/17 17:00 Lactated Ringer's 1,000 ml @ 30 mls/hr Q24H PRN IV 04/10/17 21:15 04/13/17 21:14 Sodium Chloride 500 ml @ 30 mls/hr [id number] PRN IV 04/10/17 21:15 04/13/17 21:14 (Lopressor) 25 mg FRUIT PACKER PRN PO 04/10/17 21:15 04/13/17 21:14 A/P Assessment and Plan right shoulder abscess - strep, I+D 04/05- wound site clean with wound vac, followed by wound care nurse hgb dropping- report of dark stool- check occult blood RLE asymmetric swelling- chronic per pt, hx of RLE DVT - on eliquis - on hold for upcoming colonoscopy ongoing pain bipolar dx stable bph Schizophrenia Bipolar disorder with recurrent episodes of psychosis History of colon cancer status post partial colectomy in 2003. History of right lower extremity DVT. Status post IVC filter in 2014. Removal of this IVC filter in June 2016. Hypertension Chronic anticoagulation on Eliquis on hold for procedure today. resume after procedure. Sacral Decubitus small per patient wound care following sacral decub- small per patient, being followed by wound care nurse DVT prophylaxis: Eliquis post procedure. case management consult for placement Discussed Condition With patient, Nurse Miss Sinha and Multidisciplinary round. Discharge Planning Expected later today or in am tomorrow if no further management by GI specialist. Jordan Ritchie MD Apr 11, 2017 8:18 am
[2017-04-11 11:50] LABS: AUTOMATED NEUTROPHIL # 5.6 TH/MM3 (1.8-7.7); BASOPHIL # 0.1 TH/MM3 (0-0.2); BASOPHIL % 0.9 % (0.0-2.0); EOSINOPHIL # 0.4 TH/MM3 (0-0.4); EOSINOPHIL % 4.5 % (0.0-4.0); HEMATOCRIT 39.1 % (39.0-51.0); HEMO FLAGS DIFF FINAL; LYMPH % 23.6 % (9.0-44.0); MEAN CELL VOLUME 90.8 FL (80.0-100.0); MEAN CORPUSCULAR HEMOGLOBIN 29.4 PG (27.0-34.0); MEAN CORPUSCULAR HGB CONC 32.3 % (32.0-36.0); MONO % 6.3 % (0.0-8.0); NEUT % 64.7 % (16.0-70.0); PLATELET COUNT 394 TH/MM3 (150-450); RED CELL DISTRIBUTION WIDTH 15.2 % (11.6-17.2); WHITE BLOOD COUNT 8.7 TH/MM3 (4.0-11.0)
[2017-04-11 12:00] VITALS: BP 115/75; PULSE 83; RESP 18; TEMP 97.5; O2SAT 95
[2017-04-11 12:01] LABS: INTERNATIONAL NORMALIZED RATIO 1.1 RATIO; PROTHROMBIN TIME - PATIENT 11.1 SEC (9.8-11.6)
[2017-04-11 12:13] LABS: BICARBONATE 27.3 MEQ/L (21.0-32.0); POTASSIUM 3.9 MEQ/L (3.5-5.1)
[2017-04-11] MEDS ORDERED: LEVOFLOXACIN 750 MG TAB PO SCH (13:00)
--- NOTE | 2017-04-11 14:36 | PD.PROCEDR ---
GI Procedure PROCEDURE PERFORMED Incomplete colonoscopy due to poor prep INDICATION FOR PROCEDURE History of colon cancer and strep cc sepsis PROCEDURE: The procedure, risks and benefits were discussed with Mr. Felix and informed consent was obtained. Anesthesia sedated him with Diprivan. He was placed in the left lateral decubitus position. Colonoscopy: The Pentax videoscope was introduced through the rectum and advanced to sigmoid. Retroflexion was performed in the rectum. Colonic prep was poor prep FINDINGS: Solid stool was noted in the rectum and sigmoid and as such the procedure was then terminated ESTIMATED BLOOD LOSS: None SPECIMENS REMOVED: None COMPLICATIONS: None IMPRESSION: Poor colonic prep PLAN: Repeat colonoscopy tomorrow Cain De Jesus MD Apr 11, 2017 14:36
--- NOTE | 2017-04-11 15:02 | PD.ID.CON ---
History of Present Illness Service ID Consult Requested By Dr Huff Reason for Consult R UE abscess Primary Care Physician Kari Schulz Do, MD Diagnoses: History of Present Illness Pt is not a good historian He was previously seen by Dr Aaron Her note was reviewed 61 yo mmale with history of hypertension, DVT of the right lower extremity, chronic right lower extremity cellulitis, paranoid schizophrenia, bipolar with history of psychosis presented on 04/04 with right shoulder pain. Patient was found to have right arm abscess which underwent incision and drainage by orthopedics on 04/05 with cultures growing strep, not A,B,D. Wound VAC was placed. Patient was discharged to inpatient psychiatry to continue by mouth Levaquin to complete treatment course. He still co R arm pain He has no fever His sed rate is 140 Blood clx were finalysed negative He had a colonoscopy today which was aborted 2/2 poor prep Past Family Social History Allergies: Coded Allergies: No Known Allergies (Verified Allergy, Unknown, 04/04/17) Past Medical History Schizophrenia, paranoid Bipolar disorder with recurrent episodes of psychosis History of colon cancer History DVT of the right lower extremity Hypertension Past Surgical History Patient had partial colectomy for colon cancer in 2003 IVC filter placement in April 2015. Incision and drainage of right arm abscess 04/05 Active Ordered Medications Medications where reviewed in EMR Antibiotics Include: levaquin Family History could not be obtained. Social History Reports he lives in [place]. Reports smoking but denies alcohol. Denies IVDA but does not appear reliable. Physical Exam Vital Signs Vital Signs Date Time Temp Pulse Resp B/P (MAP) Pulse Ox O2 Delivery O2 Flow Rate FiO2 04/11/17 12:00 97.5 83 18 115/75 (88) 95 04/11/17 08:00 96.9 78 16 112/68 (83) 95 04/11/17 04:00 72 04/11/17 04:00 97.3 75 20 122/68 (86) 94 04/11/17 00:00 97.2 74 20 114/64 (81) 95 04/11/17 00:00 79 04/10/17 20:00 97.0 84 20 121/70 (87) 94 04/10/17 20:00 84 04/10/17 17:07 97.8 82 17 120/76 (91) 99 Physical Exam GENERAL: This is a well-nourished, well-developed patient, in no apparent distress. SKIN: No rashes, ecchymoses or lesions. Cool and dry. HEAD: Atraumatic. Normocephalic. No temporal or scalp tenderness. EYES: Pupils equal round and reactive. Extraocular motions intact. No scleral icterus. No injection or drainage. ENT: Nose without bleeding, purulent drainage or septal hematoma. Throat without erythema, tonsillar hypertrophy or exudate. Uvula midline. Airway patent. NECK: Trachea midline. No JVD or lymphadenopathy. Supple, nontender, no meningeal signs. CARDIOVASCULAR: Regular rate and rhythm without murmurs, gallops, or rubs. RESPIRATORY: Clear to auscultation. Breath sounds equal bilaterally. No wheezes , rales, or rhonchi. GASTROINTESTINAL: Abdomen soft, non-tender, nondistended. No hepato-splenomegaly , or palpable masses. No guarding. MUSCULOSKELETAL: Right arm with wound vac in area of biceps muscle. No surrounding erythema, edema or induration noted. + midly tender to palpation NEUROLOGICAL: Awake and alert. Cranial nerves II through XII intact. Motor and sensory grossly within normal limits. Five out of 5 muscle strength in all muscle groups. Normal speech. Psych cooperative Laboratory Laboratory Tests Test 04/11/17 10:00 04/11/17 10:20 Prothrombin Time 11.1 Prothromb Time International Ratio 1.1 Blood Urea Nitrogen 15 Creatinine 0.61 Random Glucose 88 Calcium Level 9.3 Sodium Level 134 Potassium Level 3.9 Chloride Level 100 Carbon Dioxide Level 27.3 Anion Gap 7 Estimat Glomerular Filtration Rate 135 White Blood Count 8.7 Red Blood Count 4.30 Hemoglobin 12.6 Hematocrit 39.1 Mean Corpuscular Volume 90.8 Mean Corpuscular Hemoglobin 29.4 Mean Corpuscular Hemoglobin Concent 32.3 Red Cell Distribution Width 15.2 Platelet Count 394 Mean Platelet Volume 8.0 Neutrophils (%) (Auto) 64.7 Lymphocytes (%) (Auto) 23.6 Monocytes (%) (Auto) 6.3 Eosinophils (%) (Auto) 4.5 Basophils (%) (Auto) 0.9 Neutrophils # (Auto) 5.6 Lymphocytes # (Auto) 2.0 Monocytes # (Auto) 0.5 Eosinophils # (Auto) 0.4 Basophils # (Auto) 0.1 CBC Comment DIFF FINAL Differential Comment Result Diagram: 04/11/17 1020 04/11/17 1000 Assessment and Plan Assessment and Plan Strep not A,B,D biceps muscle abscess and myositis. Multiloculated abscess s.p drainage in OR and wound vac placement. no e/o osteo on CT or intra -op Colon cancer s.p partial resection of colon. At risk for recurrence and also predisposes to disseminated Strep bacteremia and infection. No e/o endocarditis. Hepatitis panel HIV Antibody screen and RPR are negative Recs DC Levaquin cont Augmentin to complete 14 days pos-op Wound vac needed as well. OK to dc home from ID standpoint Maida Hough MD Apr 11, 2017 15:02
[2017-04-11] MEDS ORDERED: ACETAMINOPHEN/HYDROcodone 325 MG/7.5 MG TAB PO PRN (17:45)
[2017-04-11] MEDS ORDERED: ACETAMINOPHEN/HYDROcodone 325 MG/5 MG TAB PO PRN (17:45)
[2017-04-11 20:00] VITALS: BP 116/74; PULSE 90; PULSE 93; RESP 17; TEMP 96; O2SAT 96
[2017-04-11] MEDS: ARIPiprazole 5 MG TAB PO SCH (22:21)
[2017-04-12] VITALS (10 sets, daily range): BP systolic 113–133; BP diastolic 70–78; PULSE 72–82; RESP 16–19; TEMP 96–98.6; O2SAT 92–97
[2017-04-12] MEDS ORDERED: MAGNESIUM CITRATE SOLN 300 ML BTL PO ONE (05:00)
[2017-04-12] MEDS: APIXABAN 2.5 MG TABLET PO SCH ×2 (07:48→21:02)
[2017-04-12] MEDS: SODIUM CHLORIDE 0.9% FLUSH 10 ML FLUSH IV FLUSH SCH ×2 (07:48→21:00)
[2017-04-12] MEDS: AMOXICILLIN/CLAVULANATE K 875 MG TAB PO SCH ×2 (08:50→21:01)
[2017-04-12] MEDS: LISINOPRIL 5 MG TAB PO SCH (08:50)
[2017-04-12] MEDS: LITHIUM CARBONATE 300 MG TAB PO SCH ×2 (08:50→21:01)
[2017-04-12] MEDS ORDERED: LACTATED RINGER'S 1000 ML IV PRN (09:30)
[2017-04-12] MEDS ORDERED: SODIUM CHLORID 0.9% 500 ML IV PRN (09:30)
[2017-04-12] MEDS ORDERED: DIMETHICONE/OXYBENZONE/PADMIATE LIP BALM 4.25 GM TOPICAL PRN (10:00)
[2017-04-12] MEDS ORDERED: SODIUM CHLORID 0.9% 500 ML INJ 500 ML IV ONE (10:00)
[2017-04-12] MEDS: SODIUM CHLOR 0.9% 1000 ML INJ 1,000 ML IV SCH (10:10)
[2017-04-12 11:53] LABS: INTERNATIONAL NORMALIZED RATIO 1.2 RATIO
--- NOTE | 2017-04-12 14:17 | HHI.PR ---
Subjective Remarks This is a pleasant 61 y/o Male admitted 04/10/17, his PCP Doctor Kari Schulz Do, Readmission of this patient who was just discharged on 04/06/17 due to Right shoulder abscess, had I and D on 04/05/17, wound VAC placement, was on wound care management, he had growth of Strep C, he has Colon Cancer and did undergo partial colectomy had a planned colonoscopy for Today, he was Cleared from the Psychiatric unit yesterday, he has been admitted due to Bipolar Disorder, Schizoaffective disorder, Multiple psychiatric hospitalizations, has Hypertension, DVT to the right lower extremity, Chronic lower extremity cellulitis, treated by Psychiatry with Abilify 10 mg and [place] 600 mg BID. the patient was discharged from Psychiatric unit and transferred to the floor for planned Colonoscopy. With Diagnosis of Schizophrenia, Bipolar disorder with recurrent episodes of Psychosis, History of colon cancer status post partial Colectomy Right lower extremity DVT status post IVC filter in March 2015, Removal of this IVC filter June 2016, Hypertension, chronic anticoagulation with Eliquis, Tobacco dependence. Seen in his bedroom, discussed with nurse Miss Sinha and Multidisciplinary round, okay to discharge Home with [facility] if okay by Orthopedic Surgery will place a call to Doctor Kelvin Harley, will consult cash posting specialist to follow, also will get clearance by GI specialist after colonoscopy performed and PT evaluation. no complaint by patient. 04/12: Stable in his office discussed with nurse Miss Stover, no nausea, vomit or diarrhea awaiting diagnostic Colonoscopy to be performed today and if cleared by Gastroenterology he will go to [facility] and rehabilitation. discussed in Multidisciplinary meeting awaiting final by GI arrangements performed for discharge. Objective Vital Signs Date Time Temp Pulse Resp B/P (MAP) Pulse Ox O2 Delivery O2 Flow Rate FiO2 04/12/17 12:00 97.5 75 17 127/75 (92) 94 04/12/17 08:00 97.9 78 16 129/78 (95) 93 04/12/17 04:00 98.6 79 17 133/76 (95) 92 04/12/17 00:00 96.0 76 17 113/74 (87) 93 04/11/17 20:00 96.0 90 17 116/74 (88) 96 04/11/17 20:00 93 04/11/17 14:59 97.8 81 18 102/67 (79) 94 I/O 04/11/17 04/11/17 04/11/17 04/12/17 04/12/17 04/12/17 07:00 15:00 23:00 07:00 15:00 23:00 Intake Total 300 ml 150 ml 120 ml 240 ml Output Total 850 ml 200 ml 1000 ml 725 ml Balance -550 ml -50 ml -880 ml -485 ml Intake Oral 300 ml 120 ml 240 ml Other 150 ml Output Urine Total 850 ml 200 ml 1000 ml 700 ml Drainage Total 0 ml 25 ml # Voids 1 2 # Bowel Movements 1 3 1 Result Diagram: 04/11/17 1020 04/11/17 1000 Imaging No new Imaging studies. Procedures None Other Results Laboratory Tests Test 04/11/17 10:00 04/11/17 10:20 04/12/17 10:59 Blood Urea Nitrogen 15 MG/DL Creatinine 0.61 MG/DL Random Glucose 88 MG/DL Calcium Level 9.3 MG/DL Sodium Level 134 MEQ/L Potassium Level 3.9 MEQ/L Chloride Level 100 MEQ/L Carbon Dioxide Level 27.3 MEQ/L Anion Gap 7 MEQ/L Estimat Glomerular Filtration Rate 135 ML/MIN White Blood Count 8.7 TH/MM3 Red Blood Count 4.30 MIL/MM3 Hemoglobin 12.6 GM/DL Hematocrit 39.1 % Mean Corpuscular Volume 90.8 FL Mean Corpuscular Hemoglobin 29.4 PG Mean Corpuscular Hemoglobin Concent 32.3 % Red Cell Distribution Width 15.2 % Platelet Count 394 TH/MM3 Mean Platelet Volume 8.0 FL Neutrophils (%) (Auto) 64.7 % Lymphocytes (%) (Auto) 23.6 % Monocytes (%) (Auto) 6.3 % Eosinophils (%) (Auto) 4.5 % Basophils (%) (Auto) 0.9 % Neutrophils # (Auto) 5.6 TH/MM3 Lymphocytes # (Auto) 2.0 TH/MM3 Monocytes # (Auto) 0.5 TH/MM3 Eosinophils # (Auto) 0.4 TH/MM3 Basophils # (Auto) 0.1 TH/MM3 CBC Comment DIFF FINAL Differential Comment Prothrombin Time 12.0 SEC Prothromb Time International Ratio 1.2 RATIO Objective Remarks GENERAL: This is a well-nourished, well-developed patient, in no apparent distress. SKIN: Dry scaly skin. HEAD: Atraumatic. Normocephalic. No temporal or scalp tenderness. EYES: No scleral icterus. No injection or drainage. Left eye mild ptosis ENT: Nose without bleeding, purulent drainage or septal hematoma. Airway patent. NECK: Trachea midline. No JVD CARDIOVASCULAR: Regular rate and rhythm without murmurs, gallops, or rubs. RESPIRATORY: Clear to auscultation. Breath sounds equal bilaterally. No wheezes , rales, or rhonchi. Decreased air entry bilaterally GASTROINTESTINAL: Abdomen soft, non-tender, nondistended. No guarding. MUSCULOSKELETAL: Extremities without clubbing, cyanosis, or edema. . No calf tenderness. Right shoulder deltoid area wound VAC insertion site. Clean site. Wound VAC is draining serosanguineous NEUROLOGICAL: Awake and alert. Motor and sensory grossly within normal limits. Normal speech. Medications and IVs Current Medications Medications (Trade) Dose Ordered Sig/Cb Route Start Time Stop Time Status Last Admin (NS Flush) 2 ml UNSCH PRN IV FLUSH 04/10/17 13:45 (NS Flush) 2 ml BID IV FLUSH 04/10/17 21:00 04/11/17 22:22 (Eliquis) 2.5 mg BID PO 04/10/17 21:00 (Abilify) 5 mg HS PO 04/10/17 21:00 04/11/17 22:21 (Prinivil) 5 mg DAILY PO 04/11/17 09:00 04/12/17 08:50 (Lithotabs) 600 mg BID PO 04/10/17 21:00 04/12/17 08:50 (Augmentin) 875 mg Q12HR PO 04/10/17 21:00 04/12/17 08:50 (Narcan Inj) 0.4 mg UNSCH PRN IV PUSH 04/10/17 17:00 Lactated Ringer's 1,000 ml @ 30 mls/hr Q24H PRN IV 04/10/17 21:15 04/13/17 21:14 Sodium Chloride 500 ml @ 30 mls/hr [id number] PRN IV 04/10/17 21:15 04/13/17 21:14 (Lopressor) 25 mg HORSE RACING MANAGER PRN PO 04/10/17 21:15 12/15/17 21:14 ([place] 5-325 Mg) 1 tab Q4H PRN PO 04/11/17 17:45 ([place] 7.5-325 Mg) 1 tab Q4H PRN PO 04/11/17 17:45 Lactated Ringer's 1,000 ml @ 30 mls/hr Q24H PRN IV 04/12/17 09:30 04/15/17 09:29 Sodium Chloride 500 ml @ 30 mls/hr [id number] PRN IV 04/12/17 09:30 04/15/17 09:29 Sodium Chloride 1,000 ml @ 100 mls/hr Q10H IV 04/12/17 10:00 04/12/17 10:10 (Blistex Lip [place]) 1 applic UNSCH PRN TOPICAL 04/12/17 10:00 A/P Assessment and Plan 1. Right Shoulder Abscess status post Vacuum placement as Multiloculated abscess status post I and D and Wound vac recommended by ID specialist to remove Levaquin, continue Augmentin to complete 14 days post OP. continue with wound vac and okay to discharge from ID specialist standpoint 2. Bipolar disorder with recurrent episodes of Psychosis, followed by Psychiatry specialist and to follow recommendations given for management 3. BPH stable 4. Colon Cancer status post partial Resection of Colon, At risk for recurrence and also predisposes to disseminated Strep bacteremia and Infection no Endocarditis. following GI specialist recommendations after Diagnostic Colonoscopy to be performed today. 5. Schizophrenia by history to continue medicines given by Psychiatry specialist 6. History of right lower extremity DVT. Status post IVC filter in 2014. Removal of this IVC filter in June 2016. re start Eliquis after Colonoscopy performed 7. Hypertension controlled. 8. Sacral Decubitus small per patient wound care following DVT prophylaxis: Eliquis post procedure. Discussed Condition With patient, Nurse Miss Stover and with Multidisciplinary round, he will be discharge after colonoscopy if no further management recommended by GI specialist. Discharge Planning Discharge to [facility] if okay with GI specialist after colonoscopy. Jordan Ritchie MD Apr 12, 2017 14:17
--- NOTE | 2017-04-12 16:02 | PD.PROCEDR ---
GI Procedure PROCEDURE PERFORMED Colonoscopy with snare polypectomy and biopsy INDICATION FOR PROCEDURE History of colon cancer PROCEDURE: The procedure, risks and benefits were discussed with Mr. Felix and informed consent was obtained. Anesthesia sedated him with Diprivan. He was placed in the left lateral decubitus position. Colonoscopy: The Pentax videoscope was introduced through the rectum and advanced to cecum where the ileocecal valve and appendiceal orifice were identified. Retroflexion was performed in the rectum. Colonic prep was fair FINDINGS: Colonic withdrawal time greater than 6 minutes as the scope was slowly withdrawn colonic mucosa was carefully inspected the patient was noted to have a sessile polyp in the ascending colon this was medium and was excised using cold snare technique there was an adjacent smaller polyp that was removed using biopsy forceps there was a third polyp in the mid transverse colon ED in the size sessile this was excised using cold snare technique all polyps were retrieved for further evaluation colonic examination otherwise unremarkable so as retroflexion in rectal examination ESTIMATED BLOOD LOSS: None SPECIMENS REMOVED: Colonic biopsies COMPLICATIONS: None IMPRESSION: Colon polyps PLAN: Await biopsies Advanced diet as tolerated Colonoscopy in 1 year Not much to add from a GI standpoint we will sign off Cain De Jesus MD Apr 12, 2017 16:02
[2017-04-12] MEDS: ARIPiprazole 5 MG TAB PO SCH (21:01)
[2017-04-13] VITALS: BP 120/72; PULSE 60; RESP 17; TEMP 98.6; O2SAT 94
[2017-04-13 04:00] VITALS: BP 129/69; PULSE 67; RESP 17; TEMP 98.7; O2SAT 95
[2017-04-13] MEDS: SODIUM CHLOR 0.9% 1000 ML INJ 1,000 ML IV SCH (04:55)
[2017-04-13 08:00] VITALS: BP 123/72; PULSE 59; RESP 16; TEMP 97.7; O2SAT 91
[2017-04-13] MEDS: SODIUM CHLORIDE 0.9% FLUSH 10 ML FLUSH IV FLUSH SCH (09:00)
--- NOTE | 2017-04-13 09:20 | HHI.PR ---
Subjective Remarks This is a pleasant 61 y/o Male admitted 04/10/17, his PCP Doctor Kari Schulz Do, Readmission of this patient who was just discharged on 04/06/17 due to Right shoulder abscess, had I and D on 04/05/17, wound VAC placement, was on wound care management, he had growth of Strep C, he has Colon Cancer and did undergo partial colectomy had a planned colonoscopy for Today, he was Cleared from the Psychiatric unit yesterday, he has been admitted due to Bipolar Disorder, Schizoaffective disorder, Multiple psychiatric hospitalizations, has Hypertension, DVT to the right lower extremity, Chronic lower extremity cellulitis, treated by Psychiatry with Abilify 10 mg and [place] 600 mg BID. the patient was discharged from Psychiatric unit and transferred to the floor for planned Colonoscopy. With Diagnosis of Schizophrenia, Bipolar disorder with recurrent episodes of Psychosis, History of colon cancer status post partial Colectomy Right lower extremity DVT status post IVC filter in March 2015, Removal of this IVC filter June 2016, Hypertension, chronic anticoagulation with Eliquis, Tobacco dependence. Seen in his bedroom, discussed with nurse Miss Sinha and Multidisciplinary round, okay to discharge Home with [facility] if okay by Orthopedic Surgery will place a call to Doctor Kelvin Harley, will consult waste/materials exchange specialist to follow, also will get clearance by GI specialist after colonoscopy performed and PT evaluation. no complaint by patient. 04/12: Stable in his office discussed with nurse Miss Stover, no nausea, vomit or diarrhea awaiting diagnostic Colonoscopy to be performed today and if cleared by Gastroenterology he will go to [facility] and rehabilitation. discussed in Multidisciplinary meeting awaiting final by GI arrangements performed for discharge. 04/13: Seen in his bedroom, no further recommendations by GI specialist did not found pathology, biopsies taken, okay to discharge to SNF he will go to [facility] later today. No nausea, vomit or diarrhea. Objective Vital Signs Date Time Temp Pulse Resp B/P (MAP) Pulse Ox O2 Delivery O2 Flow Rate FiO2 04/13/17 04:00 98.7 67 17 129/69 (89) 95 04/13/17 00:00 98.6 60 17 120/72 (88) 94 04/12/17 23:46 74 04/12/17 20:00 98.6 72 17 127/70 (89) 97 04/12/17 19:30 73 12/14/17 17:29 95 21 04/12/17 16:00 98.0 82 19 125/78 (94) 95 04/12/17 15:55 97.8 79 20 130/80 (97) 99 04/12/17 13:31 93 04/12/17 12:00 97.5 75 17 127/75 (92) 94 I/O 04/12/17 04/12/17 04/12/17 04/13/17 04/13/17 04/13/17 07:00 15:00 23:00 07:00 15:00 23:00 Intake Total 240 ml 500 ml 900 ml Output Total 725 ml 675 ml 800 ml Balance -485 ml 500 ml 225 ml -800 ml Intake Oral 240 ml 600 ml IV Total 500 ml Other 300 ml Output Urine Total 700 ml 675 ml 800 ml Drainage Total 25 ml # Voids 2 1 # Bowel Movements 1 2 Result Diagram: 04/11/17 1020 04/11/17 1000 Imaging No new imaging studies performed. Procedures Colonoscopy 04/12/17 Other Results Laboratory Tests Test 04/11/17 10:00 04/11/17 10:20 04/12/17 10:59 Blood Urea Nitrogen 15 MG/DL Creatinine 0.61 MG/DL Random Glucose 88 MG/DL Calcium Level 9.3 MG/DL Sodium Level 134 MEQ/L Potassium Level 3.9 MEQ/L Chloride Level 100 MEQ/L Carbon Dioxide Level 27.3 MEQ/L Anion Gap 7 MEQ/L Estimat Glomerular Filtration Rate 135 ML/MIN White Blood Count 8.7 TH/MM3 Red Blood Count 4.30 MIL/MM3 Hemoglobin 12.6 GM/DL Hematocrit 39.1 % Mean Corpuscular Volume 90.8 FL Mean Corpuscular Hemoglobin 29.4 PG Mean Corpuscular Hemoglobin Concent 32.3 % Red Cell Distribution Width 15.2 % Platelet Count 394 TH/MM3 Mean Platelet Volume 8.0 FL Neutrophils (%) (Auto) 64.7 % Lymphocytes (%) (Auto) 23.6 % Monocytes (%) (Auto) 6.3 % Eosinophils (%) (Auto) 4.5 % Basophils (%) (Auto) 0.9 % Neutrophils # (Auto) 5.6 TH/MM3 Lymphocytes # (Auto) 2.0 TH/MM3 Monocytes # (Auto) 0.5 TH/MM3 Eosinophils # (Auto) 0.4 TH/MM3 Basophils # (Auto) 0.1 TH/MM3 CBC Comment DIFF FINAL Differential Comment Prothrombin Time 12.0 SEC Prothromb Time International Ratio 1.2 RATIO Objective Remarks GENERAL: This is a well-nourished, well-developed patient, in no apparent distress. SKIN: Dry scaly skin. HEAD: Atraumatic. Normocephalic. No temporal or scalp tenderness. EYES: No scleral icterus. No injection or drainage. Left eye mild ptosis ENT: Nose without bleeding, purulent drainage or septal hematoma. Airway patent. NECK: Trachea midline. No JVD CARDIOVASCULAR: Regular rate and rhythm without murmurs, gallops, or rubs. RESPIRATORY: Clear to auscultation. Breath sounds equal bilaterally. No wheezes , rales, or rhonchi. Decreased air entry bilaterally GASTROINTESTINAL: Abdomen soft, non-tender, nondistended. No guarding. MUSCULOSKELETAL: Extremities without clubbing, cyanosis, or edema. . No calf tenderness. Right shoulder deltoid area wound VAC insertion site. Clean site. Wound VAC is draining serosanguineous NEUROLOGICAL: Awake and alert. Motor and sensory grossly within normal limits. Normal speech. Medications and IVs Current Medications Medications (Trade) Dose Ordered Sig/Cb Route Start Time Stop Time Status Last Admin (NS Flush) 2 ml UNSCH PRN IV FLUSH 04/10/17 13:45 (NS Flush) 2 ml BID IV FLUSH 04/10/17 21:00 04/11/17 22:22 (Eliquis) 2.5 mg BID PO 04/10/17 21:00 (Abilify) 5 mg HS PO 04/10/17 21:00 04/12/17 21:01 (Prinivil) 5 mg DAILY PO 04/11/17 09:00 04/12/17 08:50 (Lithotabs) 600 mg BID PO 04/10/17 21:00 04/12/17 21:01 (Augmentin) 875 mg Q12HR PO 04/10/17 21:00 04/12/17 21:01 (Narcan Inj) 0.4 mg UNSCH PRN IV PUSH 04/10/17 17:00 Lactated Ringer's 1,000 ml @ 30 mls/hr Q24H PRN IV 04/10/17 21:15 04/13/17 21:14 Sodium Chloride 500 ml @ 30 mls/hr [id number] PRN IV 04/10/17 21:15 04/13/17 21:14 (Lopressor) 25 mg WRAPPER [employer] PRESERVER PRN PO 04/10/17 21:15 04/13/17 21:14 ([place] 5-325 Mg) 1 tab Q4H PRN PO 04/11/17 17:45 ([place] 7.5-325 Mg) 1 tab Q4H PRN PO 04/11/17 17:45 Lactated Ringer's 1,000 ml @ 30 mls/hr Q24H PRN IV 04/12/17 09:30 04/15/17 09:29 Sodium Chloride 500 ml @ 30 mls/hr [id number] PRN IV 04/12/17 09:30 04/15/17 09:29 Sodium Chloride 1,000 ml @ 100 mls/hr Q10H IV 04/12/17 10:00 04/13/17 04:55 (Blistex Lip [place]) 1 applic UNSCH PRN TOPICAL 04/12/17 10:00 A/P Assessment and Plan 1. Right Shoulder Abscess status post Vacuum placement as Multiloculated abscess status post I and D and Wound vac recommended by ID specialist to remove Levaquin, continue Augmentin to complete 14 days post OP. continue with wound vac and okay to discharge from ID specialist standpoint 2. Bipolar disorder with recurrent episodes of Psychosis, followed by Psychiatry specialist and to follow recommendations given for management 3. BPH stable 4. Colon Cancer status post partial Resection of Colon, At risk for recurrence and also predisposes to disseminated Strep bacteremia and Infection no Endocarditis. status post Diagnostic Colonoscopy did not found pathology biopsies taken, GI signed off has to go to follow biopsy report with GI specialist continue Eliquis. 5. Schizophrenia by history to continue medicines given by Psychiatry specialist 6. History of right lower extremity DVT. Status post IVC filter in 2014. Removal of this IVC filter in June 2016. re start Eliquis after Colonoscopy performed 7. Hypertension controlled. 8. Sacral Decubitus small per patient wound care following, will continue wound care at SNF. DVT prophylaxis: Eliquis post procedure. Discussed Condition With patient Discharge Planning Discharge to [facility] now. Jordan Ritchie MD Apr 13, 2017 09:20
[2017-04-13] MEDS ORDERED: AMOX875T2 PO (09:26)
[2017-04-13] MEDS ORDERED: ARIP1TAB11 PO (09:26)
[2017-04-13] MEDS ORDERED: LITH300T3 PO (09:26)
[2017-04-13] MEDS ORDERED: LISI-519 PO (09:26)
[2017-04-13] MEDS ORDERED: HYDR-3516 PO (09:26)
[2017-04-13] MEDS ORDERED: BLISTEX LIP BALM TOPICAL (09:26)
[2017-04-13] MEDS ORDERED: APIXABAN 2.5 MG TABLET PO SCH (09:30)
--- NOTE | 2017-04-13 09:32 | HHI.DS ---
Discharge Summary Admission Date Apr 10, 2017 at 16:26 Discharge Date: Apr 13, 2017 Admitting Diagnosis (1) Right shoulder pain ICD Code: M25.511 - Pain in right shoulder (2) Bacterial infection due to Streptococcus ICD Code: A49.1 - Streptococcal infection, unspecified site (3) bipolar disorder (4) Recurrent cellulitis ICD Code: L03.90 - Cellulitis, unspecified Procedures Colonoscopy 04/12/17 Brief History - From Admission History from patient, psychiatry nurses, and review of medical records. Patient was seen in psychiatry unit. I was informed by the psychiatry nurse the patient is cleared by his psychiatrist. Patient was admitted to medical floors initially from April 04 to April 06, 2017. At that time, he was managed for his right shoulder abscess which was evaluated by orthopedics surgeon and underwent incision and drainage of that abscess on April 05, 2017 with wound VAC placement. He was receiving wound care and changes on Sunday, Sunday, Sunday. The wound cultures was growing strep C. He was evaluated by infectious disease specialist. Notes reviewed. It was recommended for patient to have GI evaluation with colonoscopy because patient has had recent colonoscopy at [facility] about 5 months ago for his colon cancer and did undergo partial colectomy. Patient was evaluated by GI service while in hospital including in psychiatry unit. His other concern is was on hold starting yesterday and he is planned for colonoscopy tomorrow. When talking about this colonoscopy, patient initially was refusing for colonoscopy. explained to pt regarding ID and GI opinions and duration of treatment for his infection based on findings Patient now is agreeable to the procedure At present, patient denies any nausea or vomiting. He actually denies any urinary burning or pain on urination or frequent urination. He however thinks that his stool is quite dark. He denies diarrhea. He is noted to have low potassium. CBC/BMP: 04/11/17 1020 04/11/17 1000 Significant Findings Laboratory Tests Test 04/11/17 10:00 04/11/17 10:20 04/12/17 10:59 Sodium Level 134 MEQ/L (136-145) Red Blood Count 4.30 MIL/MM3 (4.50-5.90) Hemoglobin 12.6 GM/DL (13.0-17.0) Eosinophils (%) (Auto) 4.5 % (0.0-4.0) Prothrombin Time 12.0 SEC (9.8-11.6) Imaging No new imaging studies. PE at Discharge GENERAL: This is a well-nourished, well-developed patient, in no apparent distress. SKIN: Dry scaly skin. HEAD: Atraumatic. Normocephalic. No temporal or scalp tenderness. EYES: No scleral icterus. No injection or drainage. Left eye mild ptosis ENT: Nose without bleeding, purulent drainage or septal hematoma. Airway patent. NECK: Trachea midline. No JVD CARDIOVASCULAR: Regular rate and rhythm without murmurs, gallops, or rubs. RESPIRATORY: Clear to auscultation. Breath sounds equal bilaterally. No wheezes , rales, or rhonchi. Decreased air entry bilaterally GASTROINTESTINAL: Abdomen soft, non-tender, nondistended. No guarding. MUSCULOSKELETAL: Extremities without clubbing, cyanosis, or edema. . No calf tenderness. Right shoulder deltoid area wound VAC insertion site. Clean site. Wound VAC is draining serosanguineous NEUROLOGICAL: Awake and alert. Motor and sensory grossly within normal limits. Normal speech. Hospital Course This is a pleasant 61 y/o Male admitted 04/10/17, his PCP Doctor Kari Schulz Do, Readmission of this patient who was just discharged on 04/06/17 due to Right shoulder abscess, had I and D on 04/05/17, wound VAC placement, was on wound care management, he had growth of Strep C, he has Colon Cancer and did undergo partial colectomy had a planned colonoscopy for Today, he was Cleared from the Psychiatric unit yesterday, he has been admitted due to Bipolar Disorder, Schizoaffective disorder, Multiple psychiatric hospitalizations, has Hypertension, DVT to the right lower extremity, Chronic lower extremity cellulitis, treated by Psychiatry with Abilify 10 mg and [place] 600 mg BID. the patient was discharged from Psychiatric unit and transferred to the floor for planned Colonoscopy. With Diagnosis of Schizophrenia, Bipolar disorder with recurrent episodes of Psychosis, History of colon cancer status post partial Colectomy Right lower extremity DVT status post IVC filter in March 2015, Removal of this IVC filter June 2016, Hypertension, chronic anticoagulation with Eliquis, Tobacco dependence. Seen in his bedroom, discussed with nurse Miss Sinha and Multidisciplinary round, okay to discharge Home with [facility] if okay by Orthopedic Surgery will place a call to Doctor Kelvin Harley, will consult flight communications specialist to follow, also will get clearance by GI specialist after colonoscopy performed and PT evaluation. no complaint by patient. 04/12: Stable in his office discussed with nurse Miss Stover, no nausea, vomit or diarrhea awaiting diagnostic Colonoscopy to be performed today and if cleared by Gastroenterology he will go to [facility]. discussed in Multidisciplinary meeting awaiting final by GI arrangements performed for discharge. 04/13: Seen in his bedroom, no further recommendations by GI specialist did not found pathology, biopsies taken, okay to discharge to SNF he will go to [facility] today. No nausea, vomit or diarrhea. Assessment and Plan 1. Right Shoulder Abscess status post Vacuum placement as Multiloculated abscess status post I and D and Wound vac recommended by ID specialist to remove Levaquin, continue Augmentin to complete 14 days post OP. continue with wound vac and okay to discharge from ID specialist standpoint 2. Bipolar disorder with recurrent episodes of Psychosis, followed by Psychiatry specialist and to follow recommendations given for management 3. BPH stable 4. Colon Cancer status post partial Resection of Colon, At risk for recurrence and also predisposes to disseminated Strep bacteremia and Infection no Endocarditis. status post Diagnostic Colonoscopy did not found pathology biopsies taken, GI signed off has to go to follow biopsy report with GI specialist continue Eliquis. 5. Schizophrenia by history to continue medicines given by Psychiatry specialist 6. History of right lower extremity DVT. Status post IVC filter in 2014. Removal of this IVC filter in June 2016. re start Eliquis after Colonoscopy performed 7. Hypertension controlled. 8. Sacral Decubitus small per patient wound care following, will continue wound care at [facility]. DVT prophylaxis: Eliquis post procedure. Discussed Condition With patient Discharge Planning Discharge to [facility] now. Pt Condition on Discharge: Good Discharge Disposition: Discharge to SNF Discharge Time: > 30 minutes Discharge Instructions DIET: Follow Instructions for: As Tolerated, No Restrictions Activities you can perform: Regular-No Restrictions Jordan Ritchie MD Apr 13, 2017 09:32
[2017-04-13 09:45] VITALS: PULSE 59
[2017-04-13] MEDS: APIXABAN 2.5 MG TABLET PO SCH (09:50)
[2017-04-13] MEDS: LITHIUM CARBONATE 300 MG TAB PO SCH (09:51)
[2017-04-13] MEDS: LISINOPRIL 5 MG TAB PO SCH (09:51)
[2017-04-13] MEDS: AMOXICILLIN/CLAVULANATE K 875 MG TAB PO SCH (09:51)
[2017-04-13 12:00] VITALS: BP 118/72; PULSE 73; RESP 18; TEMP 97.1; O2SAT 97
== END 2017-04-13 15:37 | DRG 394 ==
LOC: N07A 16:26
PROVIDERS: ADMIT Internal Medicine; ATTEND Internal Medicine
PROC: 0DJD8ZZ Inspection of Lower Intestinal Tract, Via Natural or Artificial Opening Endoscopic (ICD-10-PCS; principal; 2017-04-11 14:09)
PROC: 0DBK8ZX Excision of Ascending Colon, Via Natural or Artificial Opening Endoscopic, Diagnostic (ICD-10-PCS; 2017-04-12)
PROC: 0DBL8ZX Excision of Transverse Colon, Via Natural or Artificial Opening Endoscopic, Diagnostic (ICD-10-PCS; 2017-04-12)
DX: D12.2 Benign neoplasm of ascending colon (principal); M60.000 Infective myositis, unspecified right arm; L89.159 Pressure ulcer of sacral region, unspecified stage; F20.0 Paranoid schizophrenia; D12.3 Benign neoplasm of transverse colon; B95.5 Unspecified streptococcus as the cause of diseases classified elsewhere; Z86.718 Personal history of other venous thrombosis and embolism; Z79.02 Long term (current) use of antithrombotics/antiplatelets; Z85.038 Personal history of other malignant neoplasm of large intestine; Z90.49 Acquired absence of other specified parts of digestive tract; F31.9 Bipolar disorder, unspecified; N40.0 Benign prostatic hyperplasia without lower urinary tract symptoms; I10 Essential (primary) hypertension; F17.210 Nicotine dependence, cigarettes, uncomplicated
CPT/HCPCS: 80048; 85025; 85610; 88305; J7030; J7040